=== PATIENT | male | born 1955 | race Caucasian/White ===

== ENCOUNTER 2022-05-15 11:29 | Observation (INO) | payer OTHER ==
[2022-05-15 12:28] LABS: Absolute Lymphocytes (CBC) 2.4 K/uL (0.7-4.9); Hematocrit 45.3 % (39.6-49.0); Lymphocytes % 29.8 % (15.3-44.8); MCV 90.7 fL (80-100); MPV 8.3 fL (7.6-11.3)
[2022-05-15 12:38] LABS: Protime INR 0.99
[2022-05-15 12:45] LABS: SARS-CoV-2 Antigen Rapid Res Negative (Negative)
[2022-05-15 13:11] LABS: Albumin 3.8 g/dL (3.4-5.0); Bilirubin Direct 0.1 mg/dL (0-0.2); Bilirubin Total 0.4 mg/dL (0.2-1.0); Magnesium 2.4 mg/dL (1.8-2.4); Phosphorus 3.3 mg/dL (2.5-4.9); Potassium 4.2 mmol/L (3.5-5.1); Protein, Total 7.7 g/dL (6.4-8.2); Thyroid Stimulating Hormone 2.07 uIU/mL (0.360-3.740)
[2022-05-15 13:34] LABS: UR MICROALBUMIN 1.5 mg/dL (< 1.9)
--- OUTSIDE RECORDS SUMMARY | 2022-05-15 13:54 | XMS REPORT | Continuity of Care Document ---
:1955 [facility] t Address [address] [place] [address] Care Team Providers Name Role Phone Asked, No Pcp Primary Care Physician Unavailable BENEDICT JAVED Attending Clinician Unavailable Benedict Javed MD Attending Clinician Rennyb_Chase Attending Clinician Unavailable Jeremiah Prieto Attending Clinician [phone] Douglas Admitting Clinician Unavailable Payers Payer Name Policy Type Policy Number Effective Date Expiration Date S ource [employer] MEDICARE ADV [id number] 2021 00:00:00 GENERIC MEDICARE [id number] 2021 SUPPLEMENT 00:00:00 [facility] [id number] 2021 CARD AND PC3 00:00:00 [employer] CLAIMS [id number] OFFICE [employer] (MEDICARE [id number] REPLACEMENT/ADVANTA GE - PPO) Problems Condition Condition Condition Status Onset Resolution Last Treating Co mments Source Name Details Category Date Date Treatment Clinician Date Unstable Unstable Disease Active [facility] di angina angina 8-20 st 00:00: Hospita 00 l Urinary Urinary Problem Active [place] tract Tract 2-13 [facility] obstructio Obstructio 00:00: Ur ology n n 00 Benign Benign Problem Active [place] prostatic Prostatic 2-13 [facility] o hyperplasi Hyperplasi 00:00: Ur ology a a 00 Lower Lower Problem Active [place] urinary Urinary 2-13 [facility] tract Tract 00:00: Urology symptoms Symptoms 00 Allergies, Adverse Reactions, Alerts Allergy Allergy Status Severity Reaction(s) Onset Inactive Treating Comm ents Source Name Type Date Date Clinician LEVOFLOX Allergy Active High Hives [facility]: [facility] 00 [facility] Levoflox Propensi Active Itching [facility] di acin ty to 8-20 st adverse 00:00: Hospita reaction 00 l s to drug Levoflox Drug Active Hives, [facility] Allergy Itching [facility] 00:[facility]: [facility] 00 [place] Levaquin Allergy Active [place] to [facility] substan Urology e Social History Social Habit Start Date Stop Date Quantity Comments Source Cigarettes smoked 2022-03-20 2022-03-[address] [facility] current (pack per 00:00:00 00:00:00 [facility] day) - Reported Tobacco use and 2022-03-20 2022-03-[address] [facility] exposure 00:00:00 00:00:00 [facility] Alcohol intake 2022-03-20 2022-03-20 Ex-drinker [facility] 00[facility]finding[facility] History of tobacco 2018-02-15 Current smoker [facility] use 00:00:00 [facility] Sex Assigned At [address] 00:00:00 [facility]:00 [facility] Smoking Status Start Date Stop Date Source Never Smoker [facility] Ur ology Current every day 2022-03-20 00:00:[address] [facility] smoker [facility] Ex-smoker 2018-02-22 00:00:00 2018-02-22 00:00:00 [facility] Ordered Filled Start Stop Current Ordering Indication Dosage Frequency Signature Comments Components Source Medication Medication Date Date Medication? Clinician (SIG) Name Name EMPAGLIFLOZ Yes Take by [facility] ORAL 9-15 [facility]. [facility] 09:26: Medical 36 [facility] tamsulosin 2021- No .4mg Q.5D Take 0.[address] (FLOMAX) 9-15 09-15 mg by [facility] 0.4 mg Cap 09:19: 00:00 mouth 2 Med ical 24 hr 45 :00 (two) Center capsule times daily. pioglitazon Yes 30mg Take [address] [facility] (ACTOS) 9-15 by mouth. [facility]ukes 15 MG 08:52: Medical tablet 25 Center metFORMIN Yes 1000mg Take 1,[address] (GLUCOPHAGE 9-15 mg by [facility]ukes ) 1000 MG 08:52: mouth 2 Medic al tablet 25 (two) Center times daily with breakfast and dinner. aspirin 81 Yes 81mg QD Take [address] MG EC 9-15 by mouth [facility] tablet 08:52: daily. Medical 25 [facility] atorvastati Yes Take by [facility] n calcium 9-15 [facility]. [facility] (ATORVASTAT 08:52: Medica l IN ORAL) 25 [place] tamsulosin 2022- Yes .8mg QD Take [address] (FLOMAX) 9-15 03-14 capsules [facility] 0.4 mg Cap 00:00: 23:59 (0.8 mg Med ical 24 hr 00 :00 total) by Center capsule mouth daily for 180 days. tadalafiL 2021- Yes 5mg QD Take 1 [facility] (CIALIS) 5 -15 12-14 tablet (5 [facility] MG tablet 00:00: 23:59 mg total) Me dical 00 :00 by mouth Center daily for 90 days. sertraline Yes 100mg QD Take 100 Me thodi (ZOLOFT) 25 8-[address] MG tablet 10:22: mouth Hospita 34 daily. l pioglitazon Yes 30mg QD Take 30 mg [facility] e (ACTOS) 8-[address] 15 MG 10:22: daily. Hospita tablet 34 l clopidogrel 2017- Yes 75mg QD Take 75 mg [facility] (PLAVIX) 75 8-[address] mg tablet 10:22: daily. Hospit a 34 l metFORMIN Yes 1000mg Q.5D Take 1,000 [facility] (GLUCOPHAGE 8-[address] ) 1,000 mg 10:22: mouth 2 Hosp jacquie tablet 34 (two) l times a day with meals. glipiZIDE 0 Yes 10mg Q.5D Take 10 mg Me thodi (GLUCOTROL) 8-[address] 10 MG 10:22: (two) Hospita tablet 34 times a l day before meals. finasteride 2018-0 Yes 5mg QD Take 5 mg M ethodi (PROSCAR) 5 02-[address] mg tablet 10:22: daily. Hospit a 34 l lisinopril 2018-0 Yes 5mg QD Take 5 mg Me thodi (PRINIVIL,Z [address] ESTRIL) 5 10:22: daily. Hospit a mg tablet 34 l tamsulosin 2018-0 Yes .4mg QD Take 0.4 Met hodi (FLOMAX) 8-[address] 0.4 mg 10:22: mouth Hospita capsule 34 daily. l atorvastati 2017-0 Yes 80mg QD Take 80 mg Method[facility] n (LIPITOR) 02-[address] 80 MG 10:22: daily. Hospita tablet 34 l amoxicillin amoxicillin No amoxicilli [place] [phone] n 875 [facility] mg-potassiu mg-potassiu mg-potassi Urology m m um clavulanate clavulanate clavulanat 125 mg 125 mg e 125 mg tablet tablet tablet aspirin aspirin No aspirin [place] [facility] atorvastati atorvastati No atorvastat [place] n n in [facility] atorvastati atorvastati No atorvastat [place] n 80 mg n 80 mg in 80 mg [facility] tablet tablet tablet Urology azithromyci azithromyci No azithromyc [place] n 250 mg n 250 mg in 250 mg Me tro tablet tablet tablet Urology benzonatate benzonatate No benzonatat [place] 100 mg 100 mg e 100 mg [facility] capsule capsule capsule Urolog y Calcium 600 Calcium 600 No Calcium [place] 600 [facility] clopidogrel clopidogrel No 1 Q1D clopidogre [place] 75 mg 75 mg l 75 mg [facility] tablet Take tablet Take tablet Urology 1 tablet 1 tablet Take 1 every day every day tablet by oral by oral every day route. route. by oral route. doxycycline doxycycline No doxycyclin [place] hyclate 100 hyclate 100 e hyclate [facility] mg capsule mg capsule 100 mg U rology capsule finasteride finasteride No finasterid [place] e [facility] finasteride finasteride No finasterid [place] 5 mg tablet 5 mg tablet e 5 mg [facility] tablet Urology glipizide glipizide No glipizide [place] [facility] glipizide glipizide No glipizide [place] 10 mg 10 mg 10 mg [facility] tablet tablet tablet Urology Januvia 100 Januvia 100 No Januvia [place] mg tablet mg tablet 100 mg Met ro tablet Urology Jardiance Jardiance No Jardiance [place] 25 mg 25 mg 25 mg [facility] tablet tablet tablet Urology lisinopril lisinopril [facility]ril [facility] lisinopril lisinopril No lisinopril [place] 5 mg tablet 5 mg tablet 5 mg M etro tablet Urology metformin metformin No metformin [place] [facility] metformin metformin No metformin [place] 1,000 mg 1,000 mg 1,000 mg Met ro tablet tablet tablet Urology methylpredn methylpredn No methylpred [place] isolone 4 isolone 4 nisolone 4 [facility] mg tablets mg tablets mg tablets Urology in a dose in a dose in a dose pack pack pack metoprolol metoprolol No metoprolol [place] riggs-hydrochl riggs-hydrochl riggs-hydroch [facility] orothiaz orothiaz lorothiaz Ur ology mupirocin 2 mupirocin 2 No mupirocin [place] % topical % topical 2 % [facility] ointment ointment topical Urol ogy ointment Myrbetriq Myrbetriq No Myrbetriq [place] 50 mg 50 mg 50 mg [facility] tablet,exte tablet,exte tablet,ext Urology nded nded ended release release release Take 1 Take 1 Take 1 tablet tablet tablet every day every day every day by oral by oral by oral route for route for route for 90 days. 90 days. 90 days. Pepcid Pepcid No Pepcid [place] [facility] pioglitazon pioglitazon No pioglitazo [place] e e ne [facility] pioglitazon pioglitazon No pioglitazo [place] e 30 mg e 30 mg ne 30 mg [facility] tablet tablet tablet Urology Reprexain Reprexain [facility] Reprexain [facility] solifenacin solifenacin No solifenaci [place] 10 mg 10 mg n 10 mg [facility] tablet tablet tablet Urology tamsulosin tamsulosin No tamsulosin [place] 0.4 mg 0.4 mg 0.4 mg [facility] capsule capsule capsule Urolog y Trulicity Trulicity No Trulicity [place] 0.75 mg/0.5 0.75 mg/0.5 0.75 M etro mL mL mg/0.5 mL Urology subcutaneou subcutaneou subcutaneo s pen s pen us pen injector injector injector Zoloft Zoloft No Zoloft [facility] Urolog Immunizations Ordered Immunization Filled Immunization Date Status Commen ts Source Name Name influenza, influenza, 2020-05-06 Completed [facility] injectable, injectable, 00:00:00 Urology quadrivalent quadrivalent pneumococcal, pneumococcal, 2018-04-05 Completed [facility] unspecified unspecified 00:00:00 Urology formulation formulation Vital Signs Vital Name Observation Time Observation Value Comments Source WEIGHT 2022-03-20 08:50:00 114.352 kg WEIGHT 2022-03-20 08:50:00 114.352 kg Height 2021-03-07 00:00:00 72 [in_i] [facility] BMI (Body Mass Index) 2021-03-07 00:00:00 36.3 kg/m2 [facility] Body Weight 2021-03-07 00:00:00 268 [lb_av] [facility] Systolic blood 2022-03-20 08:50:00 98 mm[Hg] [facility] Diastolic blood 2022-03-20 08:50:00 55 mm[Hg] [facility] Heart rate 2022-03-20 08:50:00 66 /min [facility] Body temperature 2022-03-20 08:50:00 36.17 [facility] Body weight 2022-03-20 08:50:00 114.352 kg [facility] Procedures Procedure Date / Time Performed Performing Clinician Cristhian e TESTOSTERONE, FREE + 2022-03-20 11:30:[address] [facility] PSA 2022-03-20 11:30:00 Benedict Javed [facility] Colonoscopy with Biopsy [facility] Urology CARDIO- Heart Surgery [facility] tro (Stents) Urology Plan of Care Planned Activity Planned Date Details Comments Source Future Scheduled 2022-05-11 HEPATITIS B VACCINES Met [facility] Test 04:55:41 (1 of 3 - 3-dose series) [code = HEPATITIS B VACCINES (1 of 3 - 3-dose series)] Future Scheduled 2022-05-11 COVID-19 VACCINE (#1) [facility] Test 04:55:41 [code = COVID-19 VACCINE (#1)] Future Scheduled 2022-05-11 COLONOSCOPY SCREENING [facility] Test 04:55:41 [code = COLONOSCOPY SCREENING] Future Scheduled 2022-05-11 SHINGLES VACCINES (1 Met [facility] Test 04:55:41 of 2) [code = SHINGLES VACCINES (1 of 2)] Future Scheduled 2022-05-11 65+ PNEUMOCOCCAL Methodi [facility] Test 04:55:41 VACCINE (1 - PCV) [code = 65+ PNEUMOCOCCAL VACCINE (1 - PCV)] Future Scheduled 2022-05-11 INFLUENZA VACCINE Method [facility] Test 04:55:41 [code = INFLUENZA VACCINE] Future Scheduled 2022-03-[address] [facility] Test 00:00:00 WELLNESS (YEAR 2 or Medical Center FIRST YEAR if no IPPE) [code = MEDICARE ANNUAL WELLNESS (YEAR 2 or FIRST YEAR if no IPPE)] Future Scheduled 2022-03-06 INFLUENZA VACCINE (#1) [facility] Test 00:00:00 [code = INFLUENZA Medical Ce nter VACCINE (#1)] Future Scheduled 2021-07-[address] [facility] Test 00:00:00 (12+) [code = Medical Center DEPRESSION SCREENING (12+)] Future Scheduled 2021-07-06 FALLS RISK SCREENING [facility] Test 00:00:00 [code = FALLS RISK Medical C enter SCREENING] Diagnostic Test 2021-03-07 PSA, serum or plasma [facility] Pending 00:00:00 [code = PSA, serum or Urolog y plasma] Diagnostic Test 2021-03-07 urinalysis, dipstick [facility] Pending 00:00:00 [code = urinalysis, Urology dipstick] Future Scheduled 2021-02-[address] [facility] Test 00:00:00 aneurysm screening Medical C enter (procedure) [code = 516978840] Future Scheduled 2019-04-05 PNEUMOCOCCAL 65+ [facility] Test 00:00:00 (2 - PCV) [code = Medical Ce nter PNEUMOCOCCAL 65+ YRS (2 - PCV)] Future Scheduled 2006-02-24 SHINGLES VACCINES ([address] [facility] Test 00:00:00 of 2) [code = SHINGLES Medic al Center VACCINES (1 of 2)] Future Scheduled 1975-02-24 DTAP/TDAP/TD VACCINES [facility] Test 00:00:00 (1 - Tdap) [code = Medical C enter DTAP/TDAP/TD VACCINES (1 - Tdap)] Future Scheduled 1974-02-24 HEPATITIS C SCREENING [facility] Test 00:00:00 [code = HEPATITIS C Medical Center SCREENING] Future Scheduled 1955 COVID-19 VACCINE (#1) [facility] Test 00:00:00 [code = COVID-[address] VACCINE (#1)] Future Scheduled [address] [facility] Test 00:00:00 (combo) [code = CT Medical C enter Colonography (combo)] Future Scheduled [address] [facility] Test 00:00:00 malignant neoplasm of Medica l Center colon (procedure) [code = 303729845] Future Scheduled [address] [facility] Test 00:00:00 malignant neoplasm of Medica l Center colon (procedure) [code = 592732114] Future Scheduled [address] [facility] Test 00:00:00 malignant neoplasm of Medica l Center colon (procedure) [code = 034550333] Future Scheduled [address] [facility] Test 00:00:00 malignant neoplasm of Medica l Center colon (procedure) [code = 700204451] Future Scheduled 1955 Sigmoidoscopy [code = [facility] Test 00:00:00 Sigmoidoscopy] Medical Karley r Encounters Start End Encounter Admission Attending Care Care Encounter Source Date/Time Date/Time Type Type Clinicians Facility Department ID 2022-04-08 2022-04-08 Outpatient MEGAN JAVED, [facility] [id number] [facility]00 00[facility]00[facility]00 [facility] 2022-03-20 2022-03-20 Outpatient MEGAN JAVED [facility] [id number] 08:36:46 09:31:06 [facility] 2022-03-20 2022-03-20 Office Tegan [facility] [id number] 08:30:00 09:31:06 Visit [facility] 2022-02-21 2022-02-21 Outpatient MEGAN JAVED [facility] [id number] 00:[facility]00 00:00:00 [facility] 2021-03-07 2021-03-07 Outpatient Goldfarb_R [facility] [address] [place] 01:13:00 01:13:00 [id number] [facility] Urology 2021-03-07 2021-03-07 Outpatient Ida [facility] [id number] 00:00:00 00:00:00 Jeremiah [id number] 2021-03-07 2021-03-07 Jeremiah [facility] [place] - [id number] H daisy 00:00:00 00:00:00 Rich Prieto MD: [id number] [facility]rology [facility] [address] [address] , Ph. 2021-03-01 2021-03-01 Outpatient Goldfarb_R [facility] [address] [place] 03:18:00 03:18:00 [id number] [facility] Urology Results Test Description Test Time Test Comments Results Result Comments Source PSA 2022-03-23 20:07:00 Test Item Value Reference Range Interpretation Comme nts Prostate Specific Ag, 4.2 ng/mL 0.0-4.0 H Amanda ECLIA Serum (test code = methodolo gy.According to the 20110222) [place] [employer], Se rum PSA shoulddecrease and remain at undetectable le vels after radicalprostate ctomy. The AUA defines biochem ical recurrence as an initialPS A value 0.2 ng/mL or greate r followed by a subsequent conf irmatoryPSA value 0.2 ng/mL or greater.Values obtained with different assay methods or kits cannot be usedi nterchangeably. Results cannot be interpreted as absolute nancy denceof the presence or abs ence of malignant disea se. ED (test code = ED) Performed at: 01 - [facility] [id number] Director: Iam Zarate MD, Phone: [phone] Lab Interpretation (test Abnormal code = 50877-5) [facility] + [id number] 20:07:00 Test Item Value Reference Range Interpretation Comments Testosterone, Serum 427 ng/dL 264-916 Adult ma le (test code = 2986-8) referen ce interval is based on a population ofhealthy nonobese males (BMI <30) between 19 and 39 years old.Ronel et.al. JCEM 2017,102;1161-1 1 73. PMID: 87596051. Free 3.8 pg/mL 6.6-18.1 L Testosterone(Direct) (test code = 2991-8) ED (test code = ED) Performed at: - [facility] [address] [id number] Director: Iam Zarate MD, Phone: [phone] ed at: - [facility] [id number] Director: Cassi Sarmiento MD, Phone: [phone] Lab Interpretation Abnormal (test code = 70853-6) [facility]
[2022-05-15 14:16] VITALS: BMI 34.2
[2022-05-15] MEDS ORDERED: GLUCAGON 1 MG/VIAL IM PRN (14:58)
[2022-05-15] MEDS ORDERED: LOPERAMIDE HCL 2 MG CAPSULE PO PRN (15:00)
[2022-05-15] MEDS ORDERED: ACETAMINOPHEN 325 MG TABLET PO PRN (15:00)
[2022-05-15] MEDS ORDERED: DIPHENHYDRAMINE 25 MG TAB/CAP PO PRN (15:00)
[2022-05-15] MEDS ORDERED: ONDANSETRON 4 MG/2 ML VIAL IV PRN (15:00)
[2022-05-15] MEDS ORDERED: POLYETHYL GLY 3350 17 GM/DOSE PO PRN (15:00)
[2022-05-15] MEDS ORDERED: NACHLORIDE 0.45% 1,000 ML IV SCH (15:00)
[2022-05-15] MEDS ORDERED: ONDANSETRON 4 MG (ODT) TAB PO PRN (15:00)
[2022-05-15] MEDS ORDERED: VANCOMYCIN 2 GM in NA CHLORIDE 0.9% 500 ML IVPB SCH (15:00)
[2022-05-15] MEDS ORDERED: DEXTROSE 10%-WATER 500 ML IV BAG IV PRN (15:16)
--- NOTE | 2022-05-15 16:01 | RAD REPORT ---
EXAM DESCRIPTION: RAD - Chest Pa And Lat (2 Views) - 05/15/2022 3:48 pm CLINICAL HISTORY: abscess, MRSA COMPARISON: Chest Pa And Lat (2 Views) dated 12/24/2018; CHEST SINGLE VIEW dated 09/29/2015; CHEST SIN GLE VIEW dated 10/23/2013 FINDINGS: Lines: None. Lungs: No evidence of edema or pneumonia. Pleural: No significant pleural effusions or pneumothorax. Cardiac: The heart size is within normal limits. Mediastinum: Within normal limits. Bones: No acute fractures. Other: None IMPRESSION: No acute cardiopulmonary disease.
[2022-05-15] MEDS: INSULIN -REGULAR HUMAN 50 UNIT/0.5 ML ML SQ SCH ×2 (16:30→20:38)
[2022-05-16 05:49] LABS: Absolute Lymphocytes (CBC) 2.5 K/uL (0.7-4.9); Hematocrit 40.7 % (39.6-49.0); Lymphocytes % 34.2 % (15.3-44.8); MCV 90.5 fL (80-100); MPV 8.3 fL (7.6-11.3)
[2022-05-16 05:56] LABS: Magnesium 2.4 mg/dL (1.8-2.4); Potassium 4.4 mmol/L (3.5-5.1)
[2022-05-16] MEDS: INSULIN -REGULAR HUMAN 50 UNIT/0.5 ML ML SQ SCH ×3 (07:30→16:30)
[2022-05-16] MEDS ORDERED: TIZANIDINE 4 MG PO PRN (08:28)
[2022-05-16] MEDS ORDERED: HOME MED 1 EA UNK (Semaglutide [Ozempic] 1 MG/0.75 ML Pen.Injctr) SQ SCH (08:30)
[2022-05-16] MEDS ORDERED: SERTRALINE 100 MG PO SCH (09:00)
[2022-05-16] MEDS ORDERED: FINASTERIDE 5 MG PO SCH (09:00)
[2022-05-16] MEDS ORDERED: INSULIN GLARGINE HUM REC ANLOG 100 UNIT/ML SQ SCH ×2 (09:00→21:00)
[2022-05-16] MEDS ORDERED: VANCOMYCIN 2 GM in NA CHLORIDE 0.9% 500 ML IVPB SCH (09:00)
[2022-05-16] MEDS ORDERED: TAMSULOSIN HCL 0.4 MG PO SCH (09:00)
[2022-05-16] MEDS ORDERED: HOME MED 1 EA UNK (Metformin Hcl [Metformin Hcl] 1,000 MG Tablet) PO SCH (09:00)
[2022-05-16] MEDS ORDERED: FAMOTIDINE 20 MG PO SCH (09:00)
[2022-05-16] MEDS ORDERED: ATORVASTATIN CALCIUM 80 MG PO SCH (09:00)
[2022-05-16] MEDS ORDERED: ASPIRIN 81 MG PO SCH (09:00)
[2022-05-16] MEDS ORDERED: ENOXAPARIN 40 MG/0.4 ML SQ SCH (09:00)
[2022-05-16] MEDS ORDERED: VARENICLINE TARTRATE PO SCH (09:00)
[2022-05-16] MEDS ORDERED: HOME MED 1 EA UNK (Oxybutynin Chloride [Oxybutynin Chloride Er] 10 MG Tab.Er.24) PO SCH (09:00)
[2022-05-16] MEDS ORDERED: NA CHLORIDE 0.9% 1,000 ML ONE (13:24)
--- NOTE | 2022-05-16 14:34 | P.PN ---
Subjective Date of Service: 05/16/22 Chief Complaint: ABSCESS BACK OF UPPER CHEST DR. QUEVEDO IS TAKING HIM FOR SURGERY TODAY. HE COULD GO HOME TODAY OR AM DEPENDING ON DR. QUEVEDO'S SURGICAL EVAL. Physical Examination - Vital Signs Temperature: 96.6 F Blood Pressure: 124/62 Pulse: 63 Respirations: 18 Pulse Ox (%): 96 - Physical Exam General: Mild distress HEENT: Atraumatic, PERRLA, EOMI Neck: Supple, JVD not distended Respiratory: Clear to auscultation bilaterally, Normal air movement Cardiovascular: Regular rate/rhythm, Normal S1 S2 Gastrointestinal: Normal bowel sounds, No tenderness Musculoskeletal: No tenderness Integumentary: No rashes Neurological: Normal speech, Normal tone, Normal affect Lymphatics: No axilla or inguinal lymphadenopathy - Studies Laboratory Data (last 24 hrs) 05/16/22 05:24: Sodium 137, Potassium 4.4, BUN 21 H, Creatinine 1.27, Glucose 125 H, Magnesium 2.4 05/16/22 05:24: WBC 7.40, Hgb 13.6 D, Hct 40.7, Plt Count 139 L Medications List Reviewed: Yes Assessment And Plan - Current Problems (Diagnosis) (1) Abscess Current Visit: Yes Status: Acute Plan: IV VANCOMYCIN BACTRIM FAILED I And D TODAY. DC PLAN PER DR. BAEZ (2) Diabetes Onset Date: 10/01/15 Current Visit: No Status: Acute
[2022-05-16] MEDS ORDERED: propofoL 200 MG/20 ML VIAL IV ONE (14:36)
[2022-05-16] MEDS ORDERED: LIDOCAINE 2% MPF 5 ML VIAL ONE (14:36)
[2022-05-16] MEDS ORDERED: MIDAZOLAM HCL 2 MG/2 ML INJ ONE (14:36)
[2022-05-16] MEDS ORDERED: FENTANYL CITR 100 MCG/2 ML ONE (15:05)
[2022-05-16] MEDS ORDERED: ONDANSETRON 4 MG/2 ML VIAL ONE (15:15)
[2022-05-16] MEDS ORDERED: KETOROLAC 30 MG/ML INJ ONE (15:15)
--- NOTE | 2022-05-16 15:17 | P.BOP ---
Preoperative diagnosis: infected back subQ mass with abscess, celullitis Postoperative diagnosis: same Primary procedure: Excisional biopsy of infected back subQ mass 3x3cm with abscess drainage Estimated blood loss: <10cc Specimen: culture, inflammatory subq mass Findings: seee dicta Anesthesia: General Complications: None Drain(s): Other (wet to dry) Transferred to: Recovery Room Condition: Good
[2022-05-16 15:59] VITALS: O2SAT 99
[2022-05-16 16:38] VITALS: BP 119/70; TEMP 96.7
--- NOTE | 2022-05-16 20:33 | CON ---
Date of Consultation: 05/16/2022 Diagnosis: Back abscess. History Of Present Illness: This is the case of a male, who comes to us with a back abscess. He has been on antibiotics, is not improving, have a necrotic center with cellulitis around the area. He w as admitted to the hospital for IV antibiotics and also for surgical debridement. He does not rememb er exactly what happened. Then, he had seen a lump in that area before, may be just an infected seba ceous cyst with cellulitis and abscess. Review of Systems: Denies any shortness of breath, any chest pain, any fever. See history above. Otherwise 10 points a re unremarkable. Medical History: Abscess, cellulitis. Allergies: LEVAQUIN. Social History: He does not smoke. He does not drink alcohol. Family History: Noncontributory. Medications: Reviewed. Physical Examination: General: The patient is awake and alert. HEENT: Pupils are equal and reactive. Anicteric. Neck: Supple. Chest: Clear. Abdomen: Soft and depressible. Extremities: Good capillary refill. Integumentary: Shows in the right back area, the patient has an area of cellulitis about a 5 x 5 cm region with a center of about 3 x 3 cm black necrotic with fluctuance present. Laboratory Data: Blood work shows WBC count of 8.2 with a hemoglobin of 15.1. Assessment: This is a 67-year-old patient with cellulitis and abscess, infected mass in the upper ba ck. I have fully explained the benefits, alternatives, and risks of excisional biopsy of infected ma ss with drainage of an abscess, subcutaneous, which include, but not limited to infection, bleeding, damage to adjacent structures, anesthesia complication, recurrence, MS and even . He also under stands this may require wound care. He understood. WILD/JAYLEEN Voice ID: [id number] Report ID: [id number]
[2022-05-16] MEDS ORDERED: HOME MED 1 EA UNK (Empagliflozin [Jardiance] 25 MG Tablet) PO SCH (21:00)
[2022-05-16] MEDS ORDERED: GABAPENTIN 300 MG PO SCH (21:00)
--- NOTE | 2022-05-17 01:36 | OP ---
Date of Procedure: 05/16/2022 Surgeon: Kane Limon MD Preoperative Diagnosis: Infected back subcutaneous mass with abscess and cellulitis. Postoperative Diagnosis: Infected back subcutaneous mass with abscess and cellulitis. Procedure: Excisional biopsy of infected back subcutaneous mass 3 x 3 cm with abscess drainage. Specimen: Culture and inflammatory subcutaneous mass. Finding: See dictations. Anesthesia: General plus local. Complications: None. Packing: Wet-to-dry normal saline. Indications: This is the case of a 67-year-old patient who was admitted to the hospital with an absc ess and cellulitis and an infected necrotic ulcer with a mass on the back area. I fully explained th e benefits, alternatives, and risks of excisional biopsy of infected back subcutaneous mass with absc ess drainage, which include, but not limited to infection, bleeding, damage to adjacent structures, a nesthesia complication, nonhealing wound, CA and even . He also understands this may not reliev e any symptoms. He might need more than one surgical intervention. He understood and signed a consen t. Procedure In Detail: The patient was brought to the operating room, placed in supine position, and a nesthesia was done without complication. The area of concern was marked by me and the patient previo usly in the holding room. The patient was placed in a lateral decubitus position with proper protect ion. Local anesthesia was applied after time-out and then a wedge incision was made on the skin to c arry down to deep subcutaneous tissue where we have this inflammatory mass and deep to that is an abs cess. The purulent discharge was cultured. The area was irrigated and hemostasis was obtained and t he area was packed with wet-to-dry dressing. Patient tolerated the procedure well. Patient was sent to recovery in stable condition. WILD/JAYLEEN Voice ID: [id number] Report ID: [id number]
--- NOTE | 2022-05-17 01:48 | DS ---
Date of Discharge: 05/16/2022 Diagnosis: Infected back subcutaneous mass with abscess and cellulitis. Procedure: Excisional biopsy of infected back subcutaneous mass. Disposition: Home. Activity: As tolerated. No heavy lifting. Follow Up: In my office in 1 week. Call for appointment on [phone]. Patient will be discharged obv iously with the approval of Dr. Saul who is the primary doctor in this service. We prescribed pain medication for him. He is going to continue with his antibiotics. WILD/JAYLEEN Voice ID: [id number] Report ID: [id number]
== END 2022-05-16 17:08 | disposition home or self-care (01) ==
LOC: 2ND 13:48
PROVIDERS: ADMIT Internal Medicine; ATTEND Internal Medicine
PROC: 0JB70ZZ Excision of Back Subcutaneous Tissue and Fascia, Open Approach (ICD-10-PCS; principal; 2022-05-16 14:30)
DX: R22.2 Localized swelling, mass and lump, trunk (principal); L02.212 Cutaneous abscess of back [any part, except buttock and flank]; L03.312 Cellulitis of back [any part except buttock and flank]; I96 Gangrene, not elsewhere classified; Z20.822 Contact with and (suspected) exposure to COVID-19
CPT/HCPCS: 87070; 85025 ×2; 80048 ×2; 36415; 83735 ×2; 87205; 84100; 85610; 82947 ×4; 80076; 88304; 85730; 87075; 84443; 87077; 87186; 83036; 82570; 82607; 82306; 82043; 71046; 87811; 11403; J2704; J1815; J2001; J2250; J3010; J3370 ×2; G0378 ×3; J7040 ×2; J7030; J2405; G0379

== ENCOUNTER 2023-05-26 10:23 | Inpatient (IN) | payer OTHER ==
--- OUTSIDE RECORDS SUMMARY | 2023-05-26 10:27 | XMS REPORT | Continuity of Care Document ---
:1955 Author Organization [facility] t Address [address] [place] [address] [place] [id number] Care Team Providers Name Role Phone Asked, No Pcp Primary Care Physician Unavailable BENEDICT JAVED Attending Clinician Unavailable Tegan CHA, Benedict Moore Attending Clinician Rennyb_R Attending Clinician Unavailable Jeremiah Prieto Attending Clinician [phone] Douglas Admitting Clinician Unavailable Payers Payer Name Policy Type Policy Number Effective Date Expiration Date S ource [employer] MEDICARE ADV [id number] 2021 00:00:00 GENERIC MEDICARE [id number] 2021 SUPPLEMENT 00:00:00 [facility] CHOICE [id number] 2021 CARD AND PC3 00:00:00 [employer] CLAIMS [id number] OFFICE [employer] (MEDICARE [id number] REPLACEMENT/ADVANTA GE - PPO) Problems Condition Condition Condition Status Onset Resolution Last Treating Co mments Source Name Details Category Date Date Treatment Clinician Date Unstable Unstable Disease Active [facility] di angina angina 8-20 st 00:00: Hospita 00 l Urinary Urinary Problem Active [place] tract Tract 2-13 [facility] obstructio Obstructio 00:00: Ur ology n n 00 Benign Benign Problem Active [place] prostatic Prostatic 2-13 Metr o hyperplasi Hyperplasi 00:00: Ur ology a a 00 Lower Lower Problem Active [place] urinary Urinary 2-13 [facility] tract Tract 00:00: Urology symptoms Symptoms 00 Allergies, Adverse Reactions, Alerts Allergy Allergy Status Severity Reaction(s) Onset Inactive Treating Comm ents Source Name Type Date Date Clinician Levoflox Propensi Active Itching [facility] di acin ty to 8-20 st adverse 00:00: Hospita reaction 00 l s to drug Levoflox Drug Active [facility] [address] [place] LEVOFLOX Allergy Active High Hives [facility] 8-20 [facility] 00:[facility]: [facility] [place] Levaquin Allergy Active [place] [facility] e Social History Social Habit Start Date Stop Date Quantity Comments Source History of tobacco [facility]okes tobacco [facility] use daily [facility] Sexual orientation [facility] St kes [facility] Tobacco use and 2022-03-20 2022-03-[address] [facility] [facility] kes exposure 00:00:00 00:00:00 [facility] Cigarettes smoked 2022-03-20 2022-03-[address] [facility] current (pack per 00:00:00 00:00:00 Medical Center day) - Reported Alcohol intake 2022-03-20 2022-03-20 Ex-drinker [facility] 00:[facility]00 00:00:00 (finding) [facility] History of Social 2018-05-22 2018-05-[address] function 00:00:00 00:00:00 Hospital Sex Ass[birth year] [facility] [address] Kaylee kes 00:00:00 00:00:00 [facility] Smoking Status Start Date Stop Date Source Never Smoker [facility] Ur ology Current every day 2022-03-20 00:00:[address] [facility] [facility] Medical smoker Center Ex-smoker 2018-02-22 00:00:00 2018-02-22 00:00:00 [facility] Ordered Filled Start Stop Current Ordering Indication Dosage Frequency Signature Comments Components Source Medication Medication Date Date Medication? Clinician (SIG) Name Name EMPAGLIFLOZ Yes Take by [facility] ORAL 9-15 mouth. [facility] 09:26: Medical [address] [place] [address] EMPAGLIFLOZ Yes Take by [facility] ORAL 9-15 [facility]. [facility]ukes 09:26: [address] tamsulosin 2- No .4mg Q.5D Take 0.[address] (FLOMAX) 9-15 09-15 mg by [facility]ukes 0.4 mg Cap 09:19: 00:00 mouth 2 Med ical 24 hr 45 :00 (two) Center capsule times daily. pioglitazon Yes 30mg Take [address] e (ACTOS) 9-15 by mouth. Lukes 15 MG 08:52: Medical tablet [address] [place] metFORMIN Yes 1000mg Take 1,[address] (GLUCOPHAGE 9-15 mg by Lukes ) 1000 MG 08:52: mouth 2 Medic al tablet 25 (two) Center times daily with breakfast and dinner. aspirin 81 Yes 81mg QD Take [address] MG EC 9-15 by mouth [facility]ukes tablet 08:52: daily. [address] atorvastati Yes Take by [facility] n calcium 9-15 mouth. [facility]ukes (ATORVASTAT 08:52: Medica l IN ORAL) [address] [place] [address] pioglitazon Yes 30mg Take [address] [facility] (ACTOS) 9-15 by mouth. Lukes 15 MG 08:52: Medical tablet [address] [place] [address] metFORMIN Yes 1000mg Take 1,[address] (GLUCOPHAGE 9-15 mg by Lukes ) 1000 MG 08:52: mouth 2 Medic al tablet 25 (two) Center times daily with breakfast and dinner. aspirin 81 0 Yes 81mg QD Take [address] MG EC 9-15 by mouth [facility]ukes tablet 08:52: daily. [address] atorvastati Yes Take by [facility] n calcium 9-15 mouth. Lukes (ATORVASTAT 08:52: Medica l IN ORAL) [address] [place] [address] tamsulosin 3- No .8mg QD Take [address] (FLOMAX) 9-15 03-14 capsules Lukes 0.4 mg Cap 00:00: 23:59 (0.8 mg Med ical 24 hr 00 :00 total) by Center capsule mouth daily for 180 days. tamsulosin 2022- No .8mg QD Take [address] (FLOMAX) 9-15 03-14 capsules [facility]ukes 0.4 mg Cap 00:00: 23:59 (0.8 mg Med ical 24 hr 00 :00 total) by Center capsule mouth daily for 180 days. tadalafiL 2021- No 5mg QD Take 1 [facility] (CIALIS) 5 -15 12-14 tablet (5 [facility] MG tablet 00:00: 23:59 mg total) Me dical 00 :00 by mouth Center daily for 90 days. tadalafiL 2021- No 5mg QD Take 1 [facility] (CIALIS) 5 15 12-14 tablet (5 [facility] MG tablet 00:00: 23:59 mg total) Me dical 00 :00 by mouth Center daily for 90 days. sertraline 2017-0 Yes 100mg QD Take 100 Me thodi (ZOLOFT) 25 8-[address] MG tablet 10:22: mouth Hospita 34 daily. l pioglitazon 2017-0 Yes 30mg QD Take 30 mg Methodi e (ACTOS) 8-[address] 15 MG 10:22: daily. Hospita tablet 34 l clopidogrel 2018-0 Yes 75mg QD Take 75 mg [facility]i (PLAVIX) 75 8-[address] mg tablet 10:22: daily. Hospit a 34 l metFORMIN 2018-0 Yes 1000mg Q.5D Take 1,000 [facility]i (GLUCOPHAGE 8-[address] ) 1,000 mg 10:22: mouth 2 Hosp jacquie tablet 34 (two) l times a day with meals. glipiZIDE 2018-0 Yes 10mg Q.5D Take 10 mg Me thodi (GLUCOTROL) 8-[address] 10 MG 10:22: (two) Hospita tablet 34 times a l day before meals. finasteride 2018-0 Yes 5mg QD Take 5 mg M ethodi (PROSCAR) 5 8-[address] mg tablet 10:22: daily. Hospit a 34 l lisinopril 2018-0 Yes 5mg QD Take 5 mg Me thodi (PRINIVIL,Z 8-[address] ESTRIL) 5 10:22: daily. Hospit a mg tablet 34 l tamsulosin 2018-0 Yes .4mg QD Take 0.4 Met hodi (FLOMAX) 8-[address] 0.4 mg 10:22: mouth Hospita capsule 34 daily. l atorvastati 2018-0 Yes 80mg QD Take 80 mg Methodi n (LIPITOR) 8-[address] 80 MG 10:22: daily. Hospita tablet 34 l clopidogrel 2018-0 Yes 75mg QD Take 75 mg [facility]i (PLAVIX) 75 8-[address] mg tablet 10:22: daily. Hospit a 34 l metFORMIN 2018-0 Yes 1000mg Q.5D Take 1,000 Methodi (GLUCOPHAGE 8-[address] ) 1,000 mg 10:22: mouth 2 Hosp jacquie tablet 34 (two) l times a day with meals. glipiZIDE 2018-0 Yes 10mg Q.5D Take 10 mg Me thodi (GLUCOTROL) 8-[address] 10 MG 10:22: (two) Hospita tablet 34 times a l day before meals. finasteride 2018-0 Yes 5mg QD Take 5 mg M ethodi (PROSCAR) 5 8-[address] mg tablet 10:22: daily. Hospit a 34 l lisinopril 2018-0 Yes 5mg QD Take 5 mg Me thodi (PRINIVIL,Z 8- by mouth st ESTRIL) 5 10:22: daily. Hospit a mg tablet 34 l tamsulosin 2018-0 Yes .4mg QD Take 0.4 Met hodi (FLOMAX) 8-[address] 0.4 mg 10:22: mouth Hospita capsule 34 daily. l atorvastati 2018-0 Yes 80mg QD Take 80 mg Methodi n (LIPITOR) 8-[address] 80 MG 10:22: daily. Hospita tablet 34 l sertraline 2018-0 Yes 100mg QD Take 100 Me thodi (ZOLOFT) 25 8-[address] MG tablet 10:22: mouth Hospita 34 daily. l pioglitazon 2018-0 Yes 30mg QD Take 30 mg Methodi e (ACTOS) 8-[address] 15 MG 10:22: daily. Hospita tablet 34 l amoxicillin amoxicillin No amoxicilli [place] [phone] [facility] mg-potassiu mg-potassiu mg-potassi Urology m m um clavulanate clavulanate clavulanat 125 mg 125 mg e 125 mg tablet tablet tablet aspirin aspirin No aspirin [place] [facility] atorvastati atorvastati No atorvastat [place] n n in [facility] atorvastati atorvastati No atorvastat [place] n 80 mg n 80 mg in 80 mg [facility] tablet tablet tablet Urology azithromyci azithromyci No azithromyc [place] n 250 mg n 250 mg in 250 mg Me tro tablet tablet tablet Urology benzonatate benzonatate No benzonatat [place] 100 mg 100 mg e 100 mg [facility] capsule capsule capsule Urolog y Calcium 600 Calcium 600 No Calcium [place] 600 [facility] clopidogrel clopidogrel No 1 Q1D clopidogre [place] 75 mg 75 mg l 75 mg [facility] tablet Take tablet Take tablet Urology 1 tablet 1 tablet Take 1 every day every day tablet by oral by oral every day route. route. by oral route. doxycycline doxycycline No doxycyclin [place] hyclate 100 hyclate 100 e hyclate [facility] mg capsule mg capsule 100 mg U rology capsule finasteride finasteride No finasterid [place] e [facility] finasteride finasteride No finasterid [place] 5 mg tablet 5 mg tablet e 5 mg [facility] tablet Urology glipizide [facility]ipizide [facility]ide [facility] glipizide glipizide No glipizide [place] 10 mg 10 mg 10 mg [facility] tablet tablet tablet Urology Januvia 100 Januvia 100 No Januvia [place] mg tablet mg tablet 100 mg Met ro tablet Urology Jardiance Jardiance No Jardiance [place] 25 mg 25 mg 25 mg [facility] tablet tablet tablet Urology lisinopril lisinopril No lisinopril [facility] lisinopril lisinopril No lisinopril [place] 5 mg tablet 5 mg tablet 5 mg M etro tablet Urology metformin metformin No metformin [facility] metformin metformin No metformin [place] 1,000 mg 1,000 mg 1,000 mg Met ro tablet tablet tablet Urology methylpredn methylpredn No methylpred [place] isolone 4 isolone 4 nisolone 4 [facility] mg tablets mg tablets mg tablets Urology in a dose in a dose in a dose pack pack pack metoprolol metoprolol No metoprolol [place] riggs-hydrochl riggs-hydrochl riggs-hydroch [facility] orothiaz orothiaz lorothiaz Ur ology mupirocin 2 mupirocin 2 No mupirocin [place] % topical % topical 2 % [facility] ointment ointment topical Urol ogy ointment Myrbetriq Myrbetriq No Myrbetriq [place] 50 mg 50 mg 50 mg [facility] tablet,exte tablet,exte tablet,ext Urology nded nded ended release release release Take 1 Take 1 Take 1 tablet tablet tablet every day every day every day by oral by oral by oral route for route for route for 90 days. 90 days. 90 days. Pepcid Pepcid No Pepcid [facility] pioglitazon pioglitazon No pioglitazo [place] e e ne [facility] pioglitazon pioglitazon No pioglitazo [place] e 30 mg e 30 mg ne 30 mg [facility] tablet tablet tablet Urology Reprexain Reprexain No Reprexain [facility] U[facility] solifenacin solifenacin No solifenaci [place] 10 mg 10 mg n 10 mg [facility] tablet tablet tablet Urology tamsulosin tamsulosin No tamsulosin [place] 0.4 mg 0.4 mg 0.4 mg [facility] capsule capsule capsule Urolog y Trulicity Trulicity No Trulicity [place] 0.75 mg/0.5 0.75 mg/0.5 0.75 M etro mL mL mg/0.5 mL Urology subcutaneou subcutaneou subcutaneo s pen s pen us pen injector injector injector Zoloft Zoloft No Zoloft [facility] Vital Signs Vital Name Observation Time Observation Value Comments Source WEIGHT 2022-03-20 08:50:00 114.352 kg Height 2021-03-07 00:00:00 72 [in_i] [facility] BMI (Body Mass Index) 2021-03-07 00:00:00 36.3 kg/m2 [facility] Body Weight 2021-03-07 00:00:00 268 [lb_av] [facility] Systolic blood 2022-03-20 08:50:00 98 mm[Hg] [facility] Diastolic blood 2022-03-20 08:50:00 55 mm[Hg] [facility] Heart rate 2022-03-20 08:50:00 66 /min [facility] Body temperature 2022-03-20 08:50:00 36.17 Aziza [facility] Body weight 2022-03-20 08:50:00 114.352 kg [facility] Procedures Procedure Date / Time Performed Performing Clinician Sourc e TESTOSTERONE, FREE + 2022-03-20 11:30:00 Benedict Javed [facility] TOTAL [facility] PSA 2022-03-20 11:30:00 Benedict Javed [facility] Colonoscopy with Biopsy [facility] CARDIO- Heart Surgery [facility] tro (Stents) Urology Plan of Care Planned Activity Planned Date Details Comments Source Future Scheduled 2023-05-01 Screening for [facility] Test 19:42:19 malignant neoplasm of colon (procedure) [code = 269434950] Future Scheduled 2023-05-01 Screening for [facility] Test 19:42:19 malignant neoplasm of colon (procedure) [code = 532713433] Future Scheduled 2023-05-01 Screening for [facility] Test 19:42:19 malignant neoplasm of colon (procedure) [code = 831138279] Future Scheduled 2023-05-01 COVID[facility]19 [facility]:19 [code = COVID-19 VACCINE (#1)] Future Scheduled 2023-05-01 Screening for [facility] Test 19:42:19 malignant neoplasm of colon (procedure) [code = 182601810] Future Scheduled 2023-05-01 Screening for [facility] Test 19:42:19 malignant neoplasm of colon (procedure) [code = 339519472] Future Scheduled 2023-05-01 SHINGLES VACCINES (1 [facility] Test 19:42:19 of 2) [code = SHINGLES VACCINES (1 of 2)] Future Scheduled 2023-05-01 65+ [facility]OCCAL [facility] Test 19:42:19 VACCINE (1 - PCV) [code = 65+ PNEUMOCOCCAL VACCINE (1 - PCV)] Future Scheduled 2023-05-01 [facility]FLUENZA [facility]ACCINE (#[facility] Test 19:42:19 [code = INFLUENZA VACCINE (#1)] Future Scheduled 2023-03-[address] [facility] Test 00:00:00 [facility] Medical Cente r Screening (12+) [code = Tobacco Cessation Counseling and Screening (12+)] Future Scheduled 2023-03-06 Influenza Vaccine (#1) [facility] Test 00:00:00 [code = Influenza Medical Ce nter Vaccine (#1)] Future Scheduled 2022-07-[address] [facility] Test 00:00:00 (12+) [code = Medical Center DEPRESSION SCREENING (12+)] Future Scheduled 2022-07-06 FALLS RISK SCREENING [facility] Test 00:00:00 [code = FALLS RISK Medical C enter SCREENING] Future Scheduled 2022-05-11 HEPATITIS B VACCINES Met [facility] Test 04:55:41 (1 of 3 - 3-dose series) [code = HEPATITIS B VACCINES (1 of 3 - 3-dose series)] Future Scheduled 2022-05-11 COVID-19 VACCINE (#1) [facility] Test 04:55:41 [code = COVID-19 VACCINE (#1)] Future Scheduled 2022-05-11 COLONOSCOPY SCREENING [facility] Test 04:55:41 [code = COLONOSCOPY SCREENING] Future Scheduled 2022-05-11 SHINGLES VACCINES (1 Met [facility] Test 04:55:41 of 2) [code = SHINGLES VACCINES (1 of 2)] Future Scheduled 2022-05-11 65+ P[facility]UMOCOCCAL [facility] Test 04:55:41 VACCINE (1 - PCV) [code = 65+ PNEUMOCOCCAL VACCINE (1 - PCV)] Future Scheduled 2022-05-11 INFLUENZA [facility]ACCINE [facility] Test 04:55:41 [code = INFLUENZA VACCINE] Future Scheduled 2022-03-[address] [facility] Test 00:00:00 WELLNESS (YEAR 2 or Medical Center FIRST YEAR if no IPPE) [code = MEDICARE ANNUAL WELLNESS (YEAR 2 or FIRST YEAR if no IPPE)] Future Scheduled 2022-03-[address] [...] screening Medical C enter (procedure) [code = 354015614] Future Scheduled 2019-04-05 PNEUMOCOCCAL 65+ [facility] Test 00:00:00 (2 - PCV) [code = Medical Ce nter PNEUMOCOCCAL 65+ YRS (2 - PCV)] Future Scheduled 2019-04-05 PNEUMOCOCCAL 65+ YRS [facility] Test 00:00:00 (2 - PCV) [code = Medical Ce nter PNEUMOCOCCAL 65+ YRS (2 - PCV)] Future Scheduled 2006-02-24 SHINGLES VACCINES ([address] [facility] Test 00:00:00 of 2) [code = SHINGLES Medic al Center VACCINES (1 of 2)] Future Scheduled 2006-02-24 SHINGLES VACCINES ([address] [facility] Test 00:00:00 of 2) [code = SHINGLES Medic al Center VACCINES (1 of 2)] Future Scheduled 1975-02-24 DTAP/TDAP/TD VACCINES [facility] Test 00:00:00 (1 - Tdap) [code = Medical C enter DTAP/TDAP/TD VACCINES (1 - Tdap)] Future Scheduled 1975-02-24 DTAP/TDAP/TD VACCINES [facility] Test 00:00:00 (1 - Tdap) [code = Medical C enter DTAP/TDAP/TD VACCINES (1 - Tdap)] Future Scheduled 1974-02-24 HEPATITIS C SCREENING [facility] Test 00:00:00 [code = HEPATITIS C Medical Center SCREENING] Future Scheduled 1974-02-24 HEPATITIS C SCREENING [facility] Test 00:00:00 [code = HEPATITIS C Medical Center SCREENING] Future Scheduled 1956 COVID-19 VACCINE (#1) [facility] Test 00:00:00 [code = COVID-[address] VACCINE (#1)] Future Scheduled 1955 COVID-19 VACCINE (#1) [facility] Test 00:00:00 [code = COVID-[address] VACCINE (#1)] Future Scheduled [address] [facility] Test 00:00:00 (combo) [code = CT Medical C enter Colonography (combo)] Future Scheduled [address] [facility] Test 00:00:00 malignant neoplasm of Medica l Center colon (procedure) [code = 009331364] Future Scheduled [address] [facility] Test 00:00:00 malignant neoplasm of Medica l Center colon (procedure) [code = 701212570] Future Scheduled [address] [facility] Test 00:00:00 malignant neoplasm of Medica l Center colon (procedure) [code = 206565037] Future Scheduled [address] [facility] Test 00:00:00 malignant neoplasm of Medica l Center colon (procedure) [code = 261053004] Future Scheduled 1955 Sigmoidoscopy [code = [facility] Test 00:[facility] Sigmoidoscopy] Medical Cente r Future Scheduled [address] [facility] Test 00:00:00 (combo) [code = CT Medical C enter Colonography (combo)] Future Scheduled [address] [facility] Test 00:00:00 malignant neoplasm of Medica l Center colon (procedure) [code = 976761178] Future Scheduled [address] [facility] Test 00:00:00 malignant neoplasm of Medica l Center colon (procedure) [code = 449057377] Future Scheduled [address] [facility] Test 00:00:00 malignant neoplasm of Medica l Center colon (procedure) [code = 378118525] Future Scheduled 1955 Screening for [facility] Test 00:00:00 malignant neoplasm of Medica [facility] colon (procedure) [code = 423968810] Future Scheduled 1955 Sigmoidoscopy [code = [facility] 00:[facility]:00 Sigmoidoscopy] Medical Cente r Encounters Start End Encounter Admission Attending Care Care Encounter Source Date/Time Date/Time Type Type Clinicians Facility Department ID 2022-04-08 2022-04-08 [facility] [id number] 00:[facility]00 00:00[facility]00 [facility] 2022-03-20 2022-03-20 [facility] [id number] 08:30:00 09:31:06 Visit [facility] 2022-02-21 2022-02-21 [facility] [id number] 00:[facility]00 00:00:00 [facility] 2021-03-07 2021-03-07 Outpatient Goldfarb_R [facility] [address] [place] 01:13:00 01:13:00 [id number] [facility] 2021-03-07 2021-03-07 Outpatient Ida [facility] [id number] 00:00:00 00:00:00 Jeremiah [id number] 2021-03-07 2021-03-07 [facility] [place] - [id number] Enmanuel villa 00:00:00 00:00:00 Rich Prieto MD: [id number] [facility] [place] [facility] - [id number], [place] [address] , Ph. 2021-03-01 2021-03-01 Outpatient Goldfarb_R U [facility] [address] [place] 03:18:00 03:18:00 [id number] [facility] Results Test Description Test Time Test Comments Results Result Comments Source PSA 2022-03-23 20:07:00 Test Item Value Reference Range Interpretation Comme nts Prostate Specific Ag, 4.2 ng/mL 0.0-4.0 H Amanda ECLIA Serum (test code = methodolo gy.According to the 20110222) [place] [employer], Se rum PSA shoulddecrease [...] (test code = ED) Performed at: - [facility] [id number] Director: Iam Zarate MD, Phone: [phone] Lab Interpretation (test Abnormal code = 62272-1) [facility] [id number] 20:07:00 Test Item Value Reference Range Interpretation Comments Testosterone, Serum 427 ng/dL [id number] Adult ma le (test code = 2986-8) referen ce interval is based on a population ofhealthy nonobese males (BMI <30) between 19 and 39 years old.Ronel et.al. JCEM 2017,102;1161-1 1 73. PMID: 91507074. Free 3.8 pg/mL 6.6-18.1 L Testosterone(Direct) (test code = 2991-8) ED (test code = ED) Performed at: - [facility] [id number] Director: Iam Zarate MD, Phone: [phone] ed at: - [facility] [id number] Director: Cassi Sarmiento MD, Phone: [phone] Lab Interpretation Abnormal (test code = 26112-4) [facility]
[2023-05-26] MEDS ORDERED: ONDANSETRON 4 MG/2 ML VIAL ONE (10:56)
[2023-05-26] MEDS ORDERED: MORPHINE 4 MG/ML SYR ONE (10:56)
[2023-05-26 11:04] LABS: Absolute Lymphocytes (CBC) 1.4 K/uL (0.7-4.9); Hematocrit 43.4 % (39.6-49.0); Lymphocytes % 17.9 % (15.3-44.8); MCV 88.7 fL (80-100); MPV 8.7 fL (7.6-11.3); Platelets 124 thou/uL (152-406); RBC Red Blood Cell Count 4.89 M/uL (4.33-5.43)
[2023-05-26 11:20] LABS: Potassium 3.9 mEq/L (3.5-5.1); Troponin High Sensitivity 23.5 pg/mL (<58.9)
--- NOTE | 2023-05-26 11:33 | RAD REPORT ---
EXAM DESCRIPTION: RAD - Chest Single View - 05/26/2023 11:19 am CLINICAL HISTORY: CHEST PAIN Chest pain. COMPARISON: Chest Pa And Lat (2 Views) dated 05/15/2022; Chest Pa And Lat (2 Views) dated 12/24/2018; CHEST SINGLE VIEW dated 09/29/2015; CHEST SINGLE VIEW dated 10/23/2013 FINDINGS: Portable technique limits examination quality. The lungs are grossly clear. The heart is normal in size. No displaced fractures. IMPRESSION: No acute intrathoracic process suspected.
--- NOTE | 2023-05-26 14:01 | ER ---
Nurse's Notes [facility] Name: Mikey Seo Age: 68 yrs Sex: Male : 1955 Arrival Date: 05/26/2023 Time: 10:23 Bed 17 Private MD: Diagnosis: Subsequent non-ST elevation (NSTEMI) myocardial infarction Presentation: 05/26 10:28 Chief complaint: Patient states: Chest pain since this morning, at about 0730. Denies nj1 nausea, cough, shortness of breath. Took 4 baby aspirins. Pain fluctuates in severity. 10:28 Coronavirus screen: Vaccine status: Patient reports receiving the 2nd dose of the covid nj1 vaccine. Ebola Screen: Patient denies travel to an Ebola-affected area in the 21 days before illness onset. Initial Sepsis Screen: Does the patient meet any 2 criteria? No. Patient's initial sepsis screen is negative. Does the patient have a suspected source of infection? No. Patient's initial sepsis screen is negative. Risk Assessment: Do you want to hurt yourself or someone else? Patient reports no desire to harm self or others. Onset of symptoms was May 26, 2023 at 07:30. 10:28 Method Of Arrival: Ambulatory banner 10:28 Acuity: EDUIN 3 nj1 Historical: - Allergies: 10:36 Levaquin; nj1 - Home Meds: 10:42 Lantus Sub-Q 2 times per day [Active]; atorvastatin oral [Active]; Oxybutynin Chloride aa5 Oral [Active]; sertraline oral [Active]; finasteride oral [Active]; varenicline oral 2 times per day [Active]; calcium BID [Active]; tamsulosin 0.4 mg oral capsule twice a day [Active]; Metformin Oral 2 times per day [Active]; aspirin 81 mg Oral tablet,chewable once [Active]; Pepcid Oral [Active]; empagliflozin oral bedtime [Active]; gabapentin oral at bedtime [Active]; - PMHx: 10:36 Atrial Fib; High Cholesterol; Hypertension; BPH (Hypertension); nj1 10:42 Diabetes mellitus; aa5 - PSHx: 10:36 Coronary Angioplasty; nj1 - Immunization history:: Client reports receiving the 2nd dose of the Covid vaccine. - Social history:: Smoking status: Patient/guardian denies using tobacco, Stopped _ months ago 6. Screenin:30 [facility] ED Fall Risk Assessment (Adult) History of falling in the last 3 months, rs5 including since admission No falls in past 3 months (0 pts) Confusion or Disorientation No (0 pts) Intoxicated or Sedated No (0 pts) Impaired Gait No (0 pts) Mobility Assist Device Used No (0 pt) Altered Elimination No (0 pt) Score/Fall Risk Level 0 - 2 = Low Risk Oriented to surroundings, Maintained a safe environment. Abuse screen: Denies threats or abuse. Nutritional screening: No deficits noted. Tuberculosis screening: No symptoms or risk factors identified. Assessment: 10:30 General: Appears in no apparent distress. uncomfortable, Behavior is calm, cooperative. rs5 Pain: Complains of pain in chest Pain does not radiate. Pain currently is 7 out of 10 on a pain scale. Quality of pain is described as aching, pressure, Pain began 3 hours ago. Is continuous. Neuro: Level of Consciousness is awake, alert, obeys commands, Oriented to person, place, time, situation. Cardiovascular: Heart tones S1 S2 present Rhythm is regular. Respiratory: Airway is patent Respiratory effort is even, unlabored, Respiratory pattern is regular, symmetrical, Breath sounds are clear bilaterally. GI: Abdomen is round non-distended, Bowel sounds present X 4 quads. Abd is soft and non tender X 4 quads. Patient currently denies nausea, vomiting. : No signs and/or symptoms were reported regarding the genitourinary system. EENT: No signs and/or symptoms were reported regarding the EENT system. Derm: Skin is intact, Skin is pink, warm \T\ dry. Musculoskeletal: Range of motion: intact in all extremities. 11:10 Reassessment: Patient denies pain at this time. Patient states feeling better. Patient rs5 states symptoms have improved. 11:10 Cardiovascular: Rhythm is regular. Respiratory: Respiratory effort is even, unlabored, rs5 Respiratory pattern is regular, symmetrical. 12:02 Reassessment: Patient and/or family updated on plan of care and expected duration. Pain rs5 level reassessed. Patient is alert, oriented x 3, equal unlabored respirations, skin warm/dry/pink. provider at bedside. 12:45 Reassessment: To bedside for blood draw. aa5 12:45 Reassessment: Patient and/or family updated on plan of care and expected duration. Pain aa5 level reassessed. Patient is alert, oriented x 3, equal unlabored respirations, skin warm/dry/pink. Cardiovascular: Rhythm is regular. Cardiovascular: Denies chest pain. Respiratory: Respiratory effort is even, unlabored, Respiratory pattern is regular, symmetrical. 13:05 Reassessment: Patient is alert, oriented x 3, equal unlabored respirations, skin aa5 warm/dry/pink. Awaiting repeat troponin results. . 14:00 Reassessment: Provider at bedside . aa5 15:56 Reassessment: To bedside for med adm. rs5 16:45 Reassessment: Patient and/or family updated on plan of care and expected duration. Pain rs5 level reassessed. Patient is alert, oriented x 3, equal unlabored respirations, skin warm/dry/pink. Patient denies pain at this time. Cardiovascular: Denies chest pain, Rhythm is. Respiratory: Airway is patent Respiratory effort is even, unlabored, Respiratory pattern is regular, symmetrical. 16:46 Reassessment: Pt has been hospitalized, see [facility] for continuation of pt care. rs5 17:23 Reassessment: Attempted to call report to admitting nurse, nurse states to call back. . aa5 17:35 Reassessment: Failed attempt to call report, no answer. rs5 17:45 Reassessment: 2 failed attempts to call report, . rs5 17:59 Reassessment: Attempted to call report to admitting nurse, nurse not available, spoke aa5 to house admin, Annamaria Astorga RN and she states to call back to give report in about 20-30 minutes. Pt aware of wait time. . 18:30 Reassessment: Patient and/or family updated on plan of care and expected duration. Pain rs5 level reassessed. Patient is alert, oriented x 3, equal unlabored respirations, skin warm/dry/pink. 18:30 Pain: Denies pain. Cardiovascular: Rhythm is regular. Respiratory: Respiratory effort rs5 is even, unlabored, Respiratory pattern is regular, symmetrical. 19:45 Reassessment: Report attempted. Left on hold by community health education coordinator for 5 min without answer. nw1 20:00 Reassessment: Report attempted, Called and no answer. nw1 Vital Signs: 10:28 BP 150 / 68; Pulse 77; Resp 17; Temp 97.3(TE); Pulse Ox 95% on R/A; Weight 117.93 kg; nj1 Height 6 ft. 0 in. ; Pain 6/10; 10:52 BP 137 / 69; Pulse 75; Resp 16; Temp 97.4(O); Pulse Ox 99% ; rs5 12:04 BP 127 / 71; Pulse 77; Resp 17; Pulse Ox 99% on R/A; rs5 13:05 BP 138 / 57; Pulse 78; Resp 16 S; Pulse Ox 96% on R/A; aa5 14:11 BP 128 / 67; Pulse 65; Resp 17; Pulse Ox 99% on R/A; aa5 15:30 BP 136 / 69; Pulse 62; Resp 17; Pulse Ox 99% on R/A; rs5 16:45 BP 132 / 66; Pulse 63; Resp 18; Pulse Ox 99% on R/A; rs5 17:50 BP 131 / 70; Pulse 63; Resp 17; Pulse Ox 99% on R/A; rs5 18:45 BP 120 / 68; Pulse 67; Resp 18; Pulse Ox 99% on R/A; rs5 10:28 Body Mass Index 35.26 (117.93 kg, 182.88 cm) nj1 10:28 Pain Scale: Adult nj1 ED Course: 10:26 Patient arrived in ED. mg5 10:28 [facility] jh7 10:28 Jonathan Dawson MD is Attending Physician. jh7 10:30 Patient has correct armband on for positive identification. Placed in gown. Bed in low rs5 position. Call light in reach. Side rails up X2. Client placed on continuous cardiac and pulse oximetry monitoring. NIBP monitoring applied. monitoring tech on. Pulse ox on. NIBP on. 10:30 Inserted saline lock: 20 gauge in right forearm, using aseptic technique. Blood rs5 collected. 10:30 Patient maintains SpO2 saturation greater than 95% on room air. rs5 10:36 Triage completed. nj1 10:37 Arm band placed on right wrist. nj1 10:41 Jasbir Mckeon, DANO is Primary Nurse. rs5 11:21 XRAY Chest (1 view) In Process Unspecified. EDMS 14:00 Marshall Shafer MD is Hospitalizing Provider. jh7 15:49 Ptt, Activated Sent. rs5 15:50 No provider procedures requiring assistance completed. Inserted saline lock: 20 gauge rs5 in left hand, using aseptic technique. 20:23 Patient admitted, IV remains in place. nw1 20:24 Provided Education on: POC. nw1 21:02 Primary Nurse role handed off by Jasbir Mckeon RN as6 Administered Medications: 10:49 Drug: morphine IVP or IV 4 mg IVP once over 4 mins Route: IVP; Infused Over: 4 mins; rs5 Site: right forearm; 11:10 Follow up: Response: No adverse reaction; Pain is decreased rs5 10:49 Drug: Ondansetron IVP 4 mg IVP once; over 2 minutes Route: IVP; Site: right forearm; rs5 11:10 Follow up: Response: No adverse reaction; Pain is decreased rs5 15:55 Drug: Heparin ([place]-Bolus No thrombolytic) - HEParin IVP 60 units/kg IVP once; Max 5000 rs5 units {Co-Signature: delia (Abbey Walls RN).} Route: IVP; Site: left wrist; 16:10 Follow up: Response: No adverse reaction rs5 15:56 Drug: Heparin ([place] Drip) 12 units/kg/[place] - ([place] [address] units, D5W IV 500 ml) IV at rs5 calculated rate Per protocol; Max initial rate 1000 units/hr {Co-Signature: delia (Abbey Walls RN).} Route: IV; Rate: calculated rate; Site: left wrist; 16:10 Follow up: Response: No adverse reaction rs5 Medication: 12:04 VIS not applicable for this client. rs5 Point of Care Testing: Blood Glucose: 19:00 Blood Glucose: 135 mg/dL; rs5 Ranges: Outcome: 14:00 Decision to Hospitalize by Provider. jh7 20:23 Admitted to Tele accompanied by tech, room 232, Report called to DANO Tirado nw1 20:23 Condition: stable 20:23 Instructed on the need for admit, 21:10 Patient left the ED. nw1 Signatures: Dispatcher [employer] EDMS Abbey Walls RN RN aa5 Slawson, Ashby, RN RN as6 Teagan Oden FNP VULCANIZER OPERATOR 7 Jasbir Mckeon RN RN rs5 Liz Santos RN RN nj1 Mary De 5 Lesly Paredes, DANO RN nw1 Abbey Walls RN aa5 Corrections: (The following items were deleted from the chart) 10:57 10:36 PMHx: Diabetes - NIDDM; nj1 aa5 18:02 17:59 Reassessment: Attempted to call report to admitting nurse, nurse not available, aa5 spoke to house admin, Annamaria Astorga RN and she states to call back to give report in about 20-30 minutes. . aa5 18:56 16:47 PTT, ACTIVATED+[email or web address].BRZ drawn and sent. rs5 rs5
--- NOTE | 2023-05-26 14:01 | EDPHYS ---
Physician Documentation [facility] Name: Mikey Seo Age: 68 yrs Sex: Male : 1955 Arrival Date: 05/26/2023 Time: 10:23 Bed 17 Private MD: ED Physician Jonathan Dawson HPI: 05/26 10:30 This 68 yrs old Male presents to ER via Ambulatory with complaints of Chest Pain. jh7 10:30 Onset: The symptoms/episode began/occurred this morning. 68-year-old male complains of jh7 chest pain when he woke up this morning. He describes the pain is over his sternum and stabbing. Reports that Dr. Saul is his PCP. Took 324 of aspirin when he woke up but states that it has not relieved his pain. History of NSTEMI.. Historical: - Allergies: 10:36 Levaquin; nj1 - Home Meds: 10:42 Lantus Sub-Q 2 times per day [Active]; atorvastatin oral [Active]; Oxybutynin Chloride aa5 Oral [Active]; sertraline oral [Active]; finasteride oral [Active]; varenicline oral 2 times per day [Active]; calcium BID [Active]; tamsulosin 0.4 mg oral capsule twice a day [Active]; Metformin Oral 2 times per day [Active]; aspirin 81 mg Oral tablet,chewable once [Active]; Pepcid Oral [Active]; empagliflozin oral bedtime [Active]; gabapentin oral at bedtime [Active]; - PMHx: 10:36 Atrial Fib; High Cholesterol; Hypertension; BPH (Hypertension); nj1 10:42 Diabetes mellitus; aa5 - PSHx: 10:36 Coronary Angioplasty; nj1 - Immunization history:: Client reports receiving the 2nd dose of the Covid vaccine. - Social history:: Smoking status: Patient/guardian denies using tobacco, Stopped _ months ago 6. ROS: 10:30 Constitutional: Negative for fever, chills, and weight loss, Eyes: Negative for injury, jh7 pain, redness, and discharge, Neck: Negative for injury, pain, and swelling, Respiratory: Negative for shortness of breath, cough, wheezing, and pleuritic chest pain, Abdomen/GI: Negative for abdominal pain, nausea, vomiting, diarrhea, and constipation, Back: Negative for injury and pain, MS/Extremity: Negative for injury and deformity, Skin: Negative for injury, rash, and discoloration, Neuro: Negative for headache, weakness, numbness, tingling, and seizure, 10:30 Cardiovascular: Positive for chest pain, Negative for orthopnea, palpitations, 10:30 All other systems are negative, Exam: 10:30 Constitutional: This is a well developed, well nourished patient who is awake, alert, jh7 and in no acute distress. Head/Face: Normocephalic, atraumatic. Eyes: Pupils equal round and reactive to light, extra-ocular motions intact. Lids and lashes normal. Conjunctiva and sclera are non-icteric and not injected. Cornea within normal limits. Periorbital areas with no swelling, redness, or edema. Neck: Trachea midline, no thyromegaly or masses palpated, and no cervical lymphadenopathy. Supple, full range of motion without nuchal rigidity, or vertebral point tenderness. No Meningismus. Cardiovascular: Regular rate and rhythm with a normal S1 and S2. No gallops, murmurs, or rubs. Normal PMI, no JVD. No pulse deficits. Respiratory: Lungs have equal breath sounds bilaterally, clear to auscultation and percussion. No rales, rhonchi or wheezes noted. No increased work of breathing, no retractions or nasal flaring. Abdomen/GI: Soft, non-tender, with normal bowel sounds. No distension or tympany. No guarding or rebound. No evidence of tenderness throughout. Back: No spinal tenderness. No costovertebral tenderness. Full range of motion. Skin: Warm, dry with normal turgor. Normal color with no rashes, no lesions, and no evidence of cellulitis. MS/ Extremity: Pulses equal, no cyanosis. Neurovascular intact. Full, normal range of motion. Neuro: Awake and alert, GCS 15, oriented to person, place, time, and situation. Motor strength 5/5 in all extremities. Sensory grossly intact. Normal gait. Vital Signs: 10:28 BP 150 / 68; Pulse 77; Resp 17; Temp 97.3(TE); Pulse Ox 95% on R/A; Weight 117.93 kg; nj1 Height 6 ft. 0 in. ; Pain 6/10; 10:52 BP 137 / 69; Pulse 75; Resp 16; Temp 97.4(O); Pulse Ox 99% ; rs5 12:04 BP 127 / 71; Pulse 77; Resp 17; Pulse Ox 99% on R/A; rs5 13:05 BP 138 / 57; Pulse 78; Resp 16 S; Pulse Ox 96% on R/A; aa5 14:11 BP 128 / 67; Pulse 65; Resp 17; Pulse Ox 99% on R/A; aa5 15:30 BP 136 / 69; Pulse 62; Resp 17; Pulse Ox 99% on R/A; rs5 16:45 BP 132 / 66; Pulse 63; Resp 18; Pulse Ox 99% on R/A; rs5 17:50 BP 131 / 70; Pulse 63; Resp 17; Pulse Ox 99% on R/A; rs5 18:45 BP 120 / 68; Pulse 67; Resp 18; Pulse Ox 99% on R/A; rs5 10:28 Body Mass Index 35.26 (117.93 kg, 182.88 cm) nj1 10:28 Pain Scale: Adult nj1 MDM: 10:28 Patient medically screened. [facility] 13:50 Differential diagnosis: Acute MA, pneumonia, costochondritis, NSTEMI, unstable angina, [facility] stable angina, chest wall strain. Data reviewed: vital signs, nurses notes, lab test result(s), EKG, radiologic studies, plain films. Consideration of Admission/Observation Patient was admitted/placed on observation. Management of patient was discussed with the following: Hospitalist: SYLVESTER Rodriguez for Dr. Shafer. I considered the following discharge prescriptions or medication management in the emergency department Medications were administered in the Emergency Department. See MAR. Independent interpretation of the following test(s) in the Emergency Department EKG: See my EKG interpretation above. Historians other than the Patient: Spouse/Significant Other: . Care significantly affected by the following chronic conditions: Diabetes, Hypertension. Scoring Tools HEART Score: Total Score = 9. Counseling: I had a detailed discussion with the patient and/or guardian regarding the historical points, exam findings, and any diagnostic results supporting the discharge/admit diagnosis, the need for further work-up and treatment in the hospital. Response to treatment: the patient's symptoms have markedly improved after treatment. 05/26 10:33 Order name: Basic Metabolic Panel; Complete Time: 11:29 [facility] 05/26 10:33 Order name: CBC with Diff; Complete Time: 11:05 [facility] 05/26 10:33 Order name: NT PRO-BNP; Complete Time: 11:29 [facility] 05/26 10:33 Order name: PT-INR; Complete Time: 11:05 [facility] 05/26 10:33 Order name: Troponin HS; Complete Time: 11:29 [facility] 05/26 11:38 Order name: Troponin High Sensitivity: draw at 12:45pm; Complete Time: 13:47 [facility] 05/26 15:41 Order name: Ptt, Activated rs5 05/26 16:05 Order name: PTT, Activated Partial Thromb [facility] 05/26 19:18 Order name: Glucose, Ancillary Testing [facility] 05/26 20:49 Order name: PTT, Activated Partial Thromb [facility] 05/26 10:33 Order name: XRAY Chest (1 view); Complete Time: 11:34 [facility] 05/26 10:33 Order name: EKG; Complete Time: 10:34 [facility] 05/26 14:45 Order name: CONS Physician Consult [facility] 05/26 10:33 Order name: Cardiac monitoring; Complete Time: 10:35 [facility] 05/26 10:33 Order name: EKG - Nurse/Tech; Complete Time: 10:35 [facility] 05/26 10:33 Order name: IV Saline Lock; Complete Time: 10:35 [facility] 05/26 10:33 Order name: Labs collected and sent; Complete Time: 10:35 [facility] 05/26 10:33 Order name: O2 Per Protocol; Complete Time: 10:35 [facility] 05/26 10:33 Order name: O2 Sat Monitoring; Complete Time: 10:42 [facility] EC:33 Rate is 69 beats/min. Rhythm is irregular. QRS [place] is Normal. [place] interval is normal at [facility] 188 msec. QRS interval is normal at 108 msec. QT interval is normal at 400 msec. No Q waves. Clinical impression: Sinus arrythmia and Sinus arrhythmia with left anterior fascicular block. Administered Medications: 10:49 Drug: morphine IVP or IV 4 mg IVP once over 4 mins Route: IVP; Infused Over: 4 mins; rs5 Site: right forearm; 11:10 Follow up: Response: No adverse reaction; Pain is decreased rs5 10:49 Drug: Ondansetron IVP 4 mg IVP once; over 2 minutes Route: IVP; Site: right forearm; rs5 11:10 Follow up: Response: No adverse reaction; Pain is decreased rs5 15:55 Drug: Heparin ([place]-Bolus No thrombolytic) - HEParin IVP 60 units/kg IVP once; Max 5000 rs5 units {Co-Signature: delia (Abbey Walls RN).} Route: IVP; Site: left wrist; 16:10 Follow up: Response: No adverse reaction rs5 15:56 Drug: Heparin ([place] Drip) 12 units/kg/hr - ([place] [address] units, D5W IV 500 ml) IV at rs5 calculated rate Per protocol; Max initial rate 1000 units/hr {Co-Signature: delia (Abbey Walls RN).} Route: IV; Rate: calculated rate; Site: left wrist; 16:10 Follow up: Response: No adverse reaction rs5 Point of Care Testing: Blood Glucose: 19:00 Blood Glucose: 135 mg/dL; rs5 Ranges: Critical Glucose Levels:Adult <50 mg/dl or >400 mg/dl <40 mg/dl or >180 mg/dl Disposition Summary: 05/26/23 14:00 Hospitalization Ordered Notes: Hospitalization Status: Inpatient Admission [facility] Provider: Marshall Shafer [facility] Location: Telemetry/MedSurg (Inpatient) [facility] Condition: Stable [facility] Problem: new [facility] Symptoms: are unchanged [facility] Bed/Room Type: Standard [facility] Room Assignment: [facility](05/26/23 16:20) Diagnosis - Subsequent non-ST elevation (NSTEMI) myocardial infarction [facility] Forms: - Medication Reconciliation Form [facility] - SBAR form [facility] - Leadership Thank You Letter [facility] Signatures: Dispatcher [employer] Chari Ndiaye Audri, RN RN aa5 Michael Jonas FNP-Lazarus ZAMBRANO-Teagan Rider FNP FNP 7 Jasbir Mckeon RN RN rs5 Liz Santos RN RN nj1 Abbey Walls RN aa5 Corrections: (The following items were deleted from the chart) 10:57 10:36 PMHx: Diabetes - NIDDM; nj1 aa5 16:20 14:00 jh7 bd
[2023-05-26] MEDS ORDERED: HEPARIN 5000 UNIT/ML 1 ML VIAL ONE (15:37)
[2023-05-26] MEDS ORDERED: HEPARIN/D5W 25,000 UNIT/500 ML BAG IV ONE (15:37)
--- NOTE | 2023-05-26 15:56 | P.HP ---
Certification for Inpatient Patient admitted to: Inpatient With expected LOS: >2 Midnights Patient will require the following post-hospital care: None Practitioner: I am a practitioner with admitting privileges, knowledge of patient current condition, hospital course, and medical plan of care. Services: Services provided to patient in accordance with Admission requirements found in Title 42 Section 412.3 of the Code of Federal Regulations Patient History Date of Service: 05/26/23 Primary Care Provider: Dr. Saul Reason for admission: NSTEMI History of Present Illness: 68-year-old male patient of Dr. Saul with history of hypertension, hyperlipidemia, diabetes mellitus type 2, BPH presents emergency department with chief complaint of chest pain. He reports waking up and taking a shower, when he got out of the shower developing a stabbing-like chest pain without any other associated symptoms. He denies any similar symptoms in the past, had a heart catheterization in 2016 with stent placed to the LAD, at that time the OM was noted to be 80 to 90% stenosed. He came to the emergency department for evaluation, his initial high-sensitivity troponin was 23.5, a repeat troponin was performed 2 hours later which came back elevated at 111.1. Chest pain significant proved currently rated at a 2 out of 10, no STEMI criteria present on EKG. Started on heparin drip in ED, will be admitted for NSTEMI. Allergies levofloxacin [From Levaquin] Allergy (Verified 10/24/13 08:14) Hives/Rash Home Medications: Aspirin [Low Dose Aspirin EC] 1 tab PO DAILY 05/15/22 Atorvastatin Calcium [Lipitor] 1 tab PO DAILY 05/15/22 Calcium Carbonate [Calcium] 1 tab PO BID 05/15/22 Empagliflozin [Jardiance] 1 tab PO BEDTIME 05/15/22 Famotidine [Pepcid] 1 tab PO DAILY 05/15/22 Finasteride 1 tab PO DAILY 05/15/22 Gabapentin 1 cap PO BEDTIME 05/15/22 Glucosam/Chondroit/C/Manganese [Cosamin Ds Capsule] 1 tab PO TID 05/15/22 Insulin Glargine,Hum.rec.anlog [Lantus] 7 unit SQ BEDTIME 05/15/22 Insulin Glargine,Hum.rec.anlog [Lantus] 17 unit SQ DAILY 05/15/22 Metformin HCl 1 tab PO BID 05/15/22 Oxybutynin Chloride [Oxybutynin Chloride ER] 1 tab PO DAILY 05/15/22 Semaglutide [Ozempic] 1 mg SQ SEECOM 05/15/22 Sertraline [Zoloft*] 1.5 tab PO DAILY 05/15/22 Tamsulosin HCl 1 cap PO BID 05/15/22 Tizanidine [Zanaflex*] 1 tab PO DAILY PRN 05/15/22 Varenicline Tartrate [Varenicline] 1 mg PO BID 05/15/22 - Past Medical/Surgical History Diabetic: Yes -: depression -: high cholesterol -: NIDDM -: enlarged prostate -: HTN -: afib? -: left achiles tendon repair -: cardac cath (2015) -: septal sx -: cyst between groin and buttock removed infected MRSA 2003 - Family History Mother -: Heart disease, Lung disease, Diabetes, Cancer Notes: Father -: Cancer, Kidney disease Notes: since 2001 Brother -: Heart disease - Social History Smoking Status: Former smoker Alcohol use: No CD- Drugs: No Caffeine use: Yes Place of Residence: Home Review of Systems 10-point ROS is otherwise unremarkable Cardiovascular: Chest Pain Physical Examination - Physical Exam General: Alert, In no apparent distress, Oriented x3 HEENT: Atraumatic, PERRLA, Mucous membr. moist/pink Neck: Supple Respiratory: Clear to auscultation bilaterally, Normal air movement Cardiovascular: Regular rate/rhythm, Normal S1 S2 Gastrointestinal: Normal bowel sounds, No tenderness Musculoskeletal: No tenderness Integumentary: No rashes Neurological: Normal speech, Normal strength at 5/5 x4 extr, Normal tone, Normal affect - Studies Laboratory Data (last 24 hrs) 05/26/23 05/26/23 05/26/23 10:35 10:35 10:35 WBC 7.90 Hgb 14.8 Hct 43.4 Plt Count 124 L PT 11.0 INR 1.00 Sodium 135 L Potassium 3.9 BUN 13 Creatinine 1.18 Glucose 301 H Assessment and Plan - Plan Assessment: NSTEMIhistory of CAD Diabetes mellitus type [id number] with hyperglycemia Hypertension Hyperlipidemia BPH Plan: NSTEMIhistory of CAD Troponin trending up, continue to trend, monitor on telemetry, cardiology consult Continue heparin drip, n.p.o. after midnight in case of need for heart catheterization Last heart catheterization 2015 with stent to the LAD and 80-90% stenosed OM Continue aspirin, statin, beta-gopal, as needed morphine/nitro-pain significant improved Diabetes mellitus type [id number]-fxbdbtryv with hyperglycemia ACHS Accu-Chek, sliding scale insulin, A1c in the morning Hypertension Hyperlipidemia BPH Continue home medications DVT PPX: Heparin drip Code status: Full Discharge Plan: Home Plan to discharge in: 48 Hours - Advance Directives Does patient have a Living Will: No Does patient have a Durable POA for Healthcare: No - Code Status/Comfort Care Code Status Assessed: Yes (Full code) Critical Care: No Time Spent Managing Pts Care (In Minutes): 55
[2023-05-26] MEDS ORDERED: ONDANSETRON 4 MG/2 ML VIAL IV PRN (20:05)
[2023-05-26] MEDS ORDERED: MORPHINE 2 MG/ML SYR IV PRN (20:05)
[2023-05-26] MEDS ORDERED: HEPARIN/D5W 25,000 UNIT/500 ML BAG IV SCH (20:05)
[2023-05-26] MEDS ORDERED: NITROGLYCERIN 0.4 MG/TAB SL PRN (20:05)
[2023-05-26] MEDS: INSULIN REGULAR (HUMAN) 100 UNIT/ML SQ SCH ×2 (21:00→22:06)
[2023-05-26] MEDS: METOPROLOL TAR 25 MG TAB PO SCH (22:05)
[2023-05-26] MEDS: ATORVASTATIN 40 MG TAB PO SCH (22:06)
[2023-05-26 22:29] VITALS: BMI 35.2
[2023-05-27 05:03] LABS: Absolute Lymphocytes (CBC) 2.5 K/uL (0.7-4.9); Hematocrit 41.4 % (39.6-49.0); Lymphocytes % 29.4 % (15.3-44.8); MCV 88.6 fL (80-100); MPV 8.4 fL (7.6-11.3); Platelets 119 thou/uL (152-406); RBC Red Blood Cell Count 4.67 M/uL (4.33-5.43)
[2023-05-27 05:22] LABS: Potassium 3.9 mEq/L (3.5-5.1)
[2023-05-27] MEDS: METOPROLOL TAR 25 MG TAB PO SCH ×2 (06:33→18:12)
[2023-05-27] MEDS: INSULIN REGULAR (HUMAN) 100 UNIT/ML SQ SCH ×4 (07:30→19:52)
[2023-05-27] MEDS: ASPIRIN EC 81 MG TAB PO SCH (08:21)
--- NOTE | 2023-05-27 09:55 | P.PN ---
Date of Service: 05/27/23 Subjective: Still had some mild chest discomfort that evening Was given nitroglycerin with some improvement Troponin trending up ROS: 10 point ROS as noted above, otherwise negative Physical exam GEN: Alert, oriented, NAD HEENT: Normal conjunctiva, sclera anicteric CV: Regular rate and rhythm, no edema Pulm: Nonlabored respirations on room air ABD: Soft, nontender, nondistended MSK: No joint tenderness Integumentary: No rashes Neuro: Normal speech, normal affect Vitals reviewed Assessment: NSTEMIhistory of CAD Diabetes mellitus type 1agv-[id number]-uobihsibp with hyperglycemia Hypertension Hyperlipidemia BPH Plan: NSTEMIhistory of CAD Troponin trending up, currently at 4119, continue to trend continue heparin drip plan for heart cath today around noon last heart catheterization 2015 with stent to the LAD and 80-90% stenosed OM Continue aspirin, statin, beta-gopal, as needed morphine/nitro-pain significant improved Diabetes mellitus type 7ylx-nznoydn-kyfcgeyco with hyperglycemia ACHS Accu-Chek, sliding scale insulin, A1c in the morning Hypertension Hyperlipidemia BPH Continue home medications DVT PPX: Heparin drip Code status: Full Discharge Plan: Home Plan to discharge in: 48 Hours VTE: Code: Dispo: Time Spent Managing Pts Care (In Minutes): 35
[2023-05-27] MEDS ORDERED: FENTANYL CITR 100 MCG/2 ML ONE (13:00)
[2023-05-27] MEDS ORDERED: LIDOCAINE 1% 20 ML MDV ONE (13:00)
[2023-05-27] MEDS ORDERED: HEPA 1000U/500MLS 2,000 UNIT/1,000 ML BAG IV ONE (13:00)
[2023-05-27] MEDS ORDERED: CLOPIDOGREL 75 MG TABLET ONE (13:01)
[2023-05-27] MEDS ORDERED: MIDAZOLAM HCL 2 MG/2 ML INJ ONE (13:01)
[2023-05-27] MEDS ORDERED: VERAPAMIL HCL 10 MG/4 ML VIAL IV ONE (13:01)
[2023-05-27] MEDS ORDERED: HEPARIN 5000 UNIT/ML 1 ML VIAL ONE (13:01)
[2023-05-27] MEDS ORDERED: ASPIRIN 325 MG TAB ONE (13:01)
[2023-05-27] MEDS ORDERED: TICAGRELOR 90 MG TABLET PO ONE (13:02)
[2023-05-27] MEDS ORDERED: NITROGLYCERIN/D5W 50 MG/250 ML BTL IV ONE (13:02)
[2023-05-27] MEDS ORDERED: HEPARIN 10,000 UNIT/10 ML VIAL IV ONE ×2 (13:02→15:16)
[2023-05-27] MEDS ORDERED: ATROPINE SULF 1 MG/10 ML SYR IV ONE (13:02)
[2023-05-27] MEDS ORDERED: NA CHLORIDE 0.9% 500 ML ONE (13:13)
--- NOTE | 2023-05-27 16:01 | OP ---
Date of Procedure: 05/27/2023 Surgeon: JENNIFER LOPEZ Procedures Performed: 1.Selective coronary angiogram. 2.Left heart catheterization. 3.PCI of severe proximal OM1 branch which is a culprit for the CO. I used a 2.5 x 60 mm Synergy greg g-eluting stent. 4.PCI of severe proximal left circumflex stenosis. I used 3.0 x 60 mm Synergy drug-eluting stent. Indication: Oqd-[id number] myocardial infarction. Access: Right radial artery 6-Mexican closed with TR band. Anesthesia: Total sedation time was 1 hour. I used fentanyl and versed. Description Of Procedure: After risks, benefits, alternatives were explained, patient agreed to proc edure and signed informed consent. Patient was brought into the cardiac catheterization laboratory, prepped and draped in the usual sterile fashion. Then I accessed right radial artery using pediatric micropuncture kit, placed a 6-Mexican Slender sheath and took 5-Mexican [place] 4.0 catheter over a J-wi re into the aortic root, engaged the left main, took standard views, then in the RCA, took standard v iews and the catheter was pushed over the wire into the LV, measured the LVEDP. Pullback did not rec ord any gradient. I then gave systemic heparin to assure ACT level above 250, loaded with 600 mg of Plavix and patient already received aspirin and took a 6-Mexican EBU3.5 guide over J-wire into the aor tic root, engaged the left main and then I took a short Runthrough wire into the left circumflex, harinder catherine it in the OM crossing the area of stenosis and did balloon angioplasty followed by stent placemen t of 2.5 x 60 mm Synergy drug-eluting stent with excellent results and then the wire was removed and then placed in the circumflex itself and the proximal lesion was dilated using a 3.0 balloon and then placed 3.0 x 60 mm Synergy drug-eluting stent in the proximal left circumflex with excellent expansi on. There was a branch of the OM1 that was not present in the initial angiogram. After the stent pl acement, it came back with KENNY-3 flow. I then removed the wire. Final angiogram was satisfactory. Removed the catheter and the sheath, placed TR band with good hemostasis. Findings: 1.Left main; large and normal. 2.LAD; moderate size vessel with proximally patent stent. Then, mid segment has 50% stenosis at the diagonal takeoff. Diagonal branch has luminal irregularities. The rest of the LAD is with luminal irregularities. 3.Left circumflex; very large and proximal 80% stenosis, status post successful PCI as above and the n there is a severe stenosis in the proximal OM1 branch which is a culprit for the CO, status post riggs ccessful PCI after the stent placement. A branch of it came back with KENNY-3 flow and has about 80% ostial stenosis, but I believe it is a plaque shift and it is a small artery less than 1.5 mm in diam eter, so left for medical management and the circumflex itself in the mid segment has 40% stenosis. 4.RCA; large and dominant with diffuse long mid 50% stenosis and distal is 80% stenosis before the b ifurcation of the PDA and PLB. 5.LVEDP is elevated at 19 mmHg. Conclusions: 1.Severe left circumflex/OM1 stenosis, status post successful PCI as above. 2.Severe distal RCA stenosis, plan for staged PCI in 6 weeks. 3.Moderate coronary artery disease elsewhere with mildly elevated LVEDP. Plan: Aspirin, Plavix, high-dose statin, and diuretics. Follow up with me in the office in 1 week. SR/MODL Voice ID: [id number] Report ID: [id number]
--- NOTE | 2023-05-27 16:50 | EKG ---
Test Date: 2023-05-27 Test Time: 00:46:20 Valet Attendant: SREG MEASUREMENT RESULTS: Intervals: Rate: 71 [place]: QRSD: 112 QT: 388 QTc: 421 [place]: P: 54 [place]: QRS: -58 T: -7 INTERPRETIVE STATEMENTS: Sinus rhythm with 2nd degree AV block (Mobitz I) with occasional premature ventricular complexes Left anterior fascicular block Abnormal ECG Compared to ECG 05/26/2023 10:33:11 Ventricular premature complex(es) now present Sinus arrhythmia no longer present Electronically Signed On 05-27-23 16:48:52 COATING MACHINE OPERATOR HELPER by Joseph Whitfield
--- NOTE | 2023-05-27 16:53 | EKG ---
Test Date: 2023-05-26 Test Time: 10:33:11 Inclusion Internship: FELICITY MEASUREMENT RESULTS: Intervals: Rate: 69 MT: 188 QRSD: 108 QT: 400 QTc: 428 Percy: P: 74 MT: 188 QRS: -47 T: 17 INTERPRETIVE STATEMENTS: Sinus rhythm with marked sinus arrhythmia Left anterior fascicular block Abnormal ECG Compared to ECG 12/24/2018 17:24:16 Left anterior fascicular block now present Sinus bradycardia no longer present Atrial premature complex(es) no longer present Electronically Signed On 05-27-23 16:50:00 STRAP BUCKLER MACHINE by Joseph Whitfield
[2023-05-27] MEDS ORDERED: FUROSEMIDE 20 MG/ 2ML VIAL IV ONE (19:25)
[2023-05-27] MEDS: ATORVASTATIN 40 MG TAB PO SCH (20:45)
[2023-05-27 21:03] VITALS: O2SAT 97
[2023-05-28 02:38] LABS: Absolute Lymphocytes (CBC) 1.8 K/uL (0.7-4.9); Hematocrit 41.9 % (39.6-49.0); Lymphocytes % 22.2 % (15.3-44.8); MCV 87.9 fL (80-100); MPV 8.7 fL (7.6-11.3); Platelets 138 thou/uL (152-406); RBC Red Blood Cell Count 4.76 M/uL (4.33-5.43)
[2023-05-28 03:00] LABS: Potassium 3.5 mEq/L (3.5-5.1)
[2023-05-28] MEDS: METOPROLOL TAR 25 MG TAB PO SCH (05:33)
[2023-05-28] MEDS: INSULIN REGULAR (HUMAN) 100 UNIT/ML SQ SCH (07:30)
[2023-05-28 08:21] VITALS: BP 136/80; TEMP 97.2
--- NOTE | 2023-05-28 08:34 | P.DS ---
Admission Date: 05/26/23 Discharge Date: 05/28/23 Primary Care Provider: Dr. Saul Disposition: ROUTINE DISCHARGE Discharge Condition: GOOD Reason for Admission: NSTEMI Consultations: CardiologyDr. Whitfield Procedures: Heart cath 05/27/2023 Brief History of Present Illness: 68-year-old male patient of Dr. Saul with history of hypertension, hyperlipidemia, diabetes mellitus type 2, BPH presents emergency department with chief complaint of chest pain. He reports waking up and taking a shower, when he got out of the shower developing a stabbing-like chest pain without any other associated symptoms. He denies any similar symptoms in the past, had a heart catheterization in 2016 with stent placed to the LAD, at that time the OM was noted to be 80 to 90% stenosed. He came to the emergency department for evaluation, his initial high-sensitivity troponin was 23.5, a repeat troponin was performed 2 hours later which came back elevated at 111.1. Chest pain significant proved currently rated at a 2 out of 10, no STEMI criteria present on EKG. Started on heparin drip in ED, will be admitted for NSTEMI. Hospital Course: Problem List NSTEMI/ACSS/P PCI of left circumflex/OM1 with severe stenosis-plan for staged cath in 6 weeks of distal RCA Elevated LVEDP Diabetes mellitus type 2 with hyperglycemia Hypertension Hyperlipidemia BPH Patient was admitted to the hospital for chest pain, NSTEMI. Initial high- sensitivity troponin 111, continue to trend up peaking at 4119. He was placed on heparin drip and had a heart catheterization performed on 05/27/2023. PCI was performed of both left circumflex and OM1 areas of severe stenosis Cardiology recommends staged cath with planned PCI of the severe distal RCA stenosis in 6 weeks Moderate coronary artery disease elsewhere with mildly elevated LVEDP New medications: Clopidogrel 75 mg daily-very important to take this medication to prevent problems with your stents Lasix 20 mg daily for 1 week until follow-up with cardiology Metoprolol 12.5 mg twice daily Continue other home medications including her aspirin, atorvastatin Follow-up with cardiology and your primary care doctor Dr. Saul in 1 week. Vital Signs/Physical Exam: Temp Pulse Resp BP Pulse Ox 97.2 F 66 18 136/80 97 05/28/23 08:00 05/28/23 08:00 05/28/23 08:00 05/28/23 08:00 05/28/23 08:00 General: Alert, In no apparent distress, Oriented x3 HEENT: Atraumatic, EOMI Neck: Supple Respiratory: Clear to auscultation bilaterally, Normal air movement Cardiovascular: Regular rate/rhythm, Normal S1 S2 Gastrointestinal: Normal bowel sounds Musculoskeletal: No tenderness Integumentary: No rashes Neurological: Normal speech Laboratory Data at Discharge: WBC 8.30 thou/uL (4.3-10.9) 05/28/23 01:38 Hgb 14.2 g/dL (13.6-17.9) 05/28/23 01:38 Hct 41.9 % (39.6-49.0) 05/28/23 01:38 Plt Count 138 thou/uL (152-406) L 05/28/23 01:38 PT 11.0 SECONDS (9.5-12.5) 05/26/23 10:35 INR 1.00 05/26/23 10:35 APTT 49.0 SECONDS (24.3-36.9) H 05/27/23 09:16 Sodium 136 mEq/L (136-145) 05/28/23 01:41 Potassium 3.5 mEq/L (3.5-5.1) 05/28/23 01:41 BUN 18 mg/dL (7-18) 05/28/23 01:41 Creatinine 1.09 mg/dL (0.70-1.30) 05/28/23 01:41 Glucose 190 mg/dL (74-106) H 05/28/23 01:41 Triglycerides 141 mg/dL (<150) 05/27/23 04:50 Cholesterol 78 mg/dL (<200) 05/27/23 04:50 HDL Cholesterol 43 mg/dL (40-60) 05/27/23 04:50 Cholesterol/HDL Ratio 1.81 05/27/23 04:50 Home Medications: Aspirin [Low Dose Aspirin EC] 1 tab PO DAILY 05/15/22 Atorvastatin Calcium [Lipitor] 1 tab PO DAILY 05/15/22 Calcium Carbonate [Calcium] 1 tab PO BID 05/15/22 Empagliflozin [Jardiance] 1 tab PO BEDTIME 05/15/22 Famotidine [Pepcid] 1 tab PO DAILY 05/15/22 Finasteride 1 tab PO DAILY 05/15/22 Gabapentin 1 cap PO BEDTIME 05/15/22 Glucosam/Chondroit/C/Manganese [Cosamin Ds Capsule] 1 tab PO TID 05/15/22 Insulin Glargine,Hum.rec.anlog [Lantus] 7 unit SQ BEDTIME 05/15/22 Insulin Glargine,Hum.rec.anlog [Lantus] 17 unit SQ DAILY 05/15/22 Metformin HCl 1 tab PO BID 05/15/22 Oxybutynin Chloride [Oxybutynin Chloride ER] 1 tab PO DAILY 05/15/22 Semaglutide [Ozempic] 1 mg SQ SEECOM 05/15/22 Sertraline [Zoloft*] 1.5 tab PO DAILY 05/15/22 Tamsulosin HCl 1 cap PO BID 05/15/22 Tizanidine [Zanaflex*] 1 tab PO DAILY PRN 05/15/22 Varenicline Tartrate 1 mg PO BID 05/15/22 Aspirin [Aspirin EC] 81 mg PO DAILY #30 tab 05/28/23 Clopidogrel Bisulfate [Plavix] 75 mg PO DAILY #30 tab 05/28/23 Furosemide [Lasix] 20 mg PO DAILY 7 Days #7 tab 05/28/23 Metoprolol Tartrate 12.5 mg PO BID #30 tab 05/28/23 New Medications: Aspirin [Aspirin EC] 81 mg PO DAILY #30 tab Furosemide [Lasix] 20 mg PO DAILY 7 Days #7 tab Metoprolol Tartrate 12.5 mg PO BID #30 tab Clopidogrel Bisulfate [Plavix] 75 mg PO DAILY #30 tab Physician Discharge Instructions: Patient was admitted to the hospital for chest pain, NSTEMI. Initial high- sensitivity troponin 111, continue to trend up peaking at 4119. He was placed on heparin drip and had a heart catheterization performed on 05/27/2023. PCI was performed of both left circumflex and OM1 areas of severe stenosis Cardiology recommends staged cath with planned PCI of the severe distal RCA stenosis in 6 weeks Moderate coronary artery disease elsewhere with mildly elevated LVEDP New medications: Clopidogrel 75 mg daily-very important to take this medication to prevent problems with your stents Lasix 20 mg daily for 1 week until follow-up with cardiology Metoprolol 12.5 mg twice daily Continue other home medications including her aspirin, atorvastatin Follow-up with cardiology and your primary care doctor Dr. Saul in 1 week. Diet: AHA Activity: Ad chago Followup: Elio Saul MD [Primary Care Provider] - Time spent managing pt's care (in minutes): 30
[2023-05-28] MEDS: ASPIRIN EC 81 MG TAB PO SCH (08:46)
[2023-05-28] MEDS ORDERED: CLOPIDOGREL 75 MG TABLET PO SCH (09:00)
== END 2023-05-28 10:02 | disposition home or self-care (01) | DRG 322 ==
LOC: ER 10:23 → EEVIPCON 14:58 → ERHOLD 14:58 → 2ND 20:10
PROVIDERS: ADMIT Hospitalist; ATTEND Hospitalist
PROC: 027035Z Dilation of Coronary Artery, One Artery with Two Drug-eluting Intraluminal Devices, Percutaneous Approach (ICD-10-PCS; principal; 2023-05-27)
PROC: 4A023N7 Measurement of Cardiac Sampling and Pressure, Left Heart, Percutaneous Approach (ICD-10-PCS; 2023-05-27)
PROC: B2111ZZ Fluoroscopy of Multiple Coronary Arteries using Low Osmolar Contrast (ICD-10-PCS; 2023-05-27)
DX: I21.4 Non-ST elevation (NSTEMI) myocardial infarction (principal); I10 Essential (primary) hypertension; I48.91 Unspecified atrial fibrillation; N40.0 Benign prostatic hyperplasia without lower urinary tract symptoms; E78.00 Pure hypercholesterolemia, unspecified; E11.65 Type 2 diabetes mellitus with hyperglycemia; I25.10 Atherosclerotic heart disease of native coronary artery without angina pectoris; I25.2 Old myocardial infarction; Z79.4 Long term (current) use of insulin; Z95.1 Presence of aortocoronary bypass graft; Z88.1 Allergy status to other antibiotic agents; Z79.82 Long term (current) use of aspirin; Z79.84 Long term (current) use of oral hypoglycemic drugs; Z86.14 Personal history of Methicillin resistant Staphylococcus aureus infection; Z87.891 Personal history of nicotine dependence; Z79.899 Other long term (current) drug therapy
CPT/HCPCS: 36415; 71045; 76937; 80048; 80061; 82947; 83036; 83880; 84484; 85025; 85347; 85610; 85730; 93005; 93458; 99285; C1725; C1893; C9600; J0461; J1644; J1815; J1940; J2001; J2250; J2270; J2405; J3010; J7040; Q9966

== ENCOUNTER 2023-06-09 17:58 | Observation (INO) | payer OTHER ==
[2023-06-09 18:22] LABS: Absolute Lymphocytes (CBC) 2.3 K/uL (0.7-4.9); Hematocrit 40.9 % (39.6-49.0); Lymphocytes % 31.2 % (15.3-44.8); MCV 89.2 fL (80-100); MPV 8.1 fL (7.6-11.3); Platelets 153 thou/uL (152-406); RBC Red Blood Cell Count 4.58 M/uL (4.33-5.43)
--- NOTE | 2023-06-09 18:24 | RAD REPORT ---
EXAM DESCRIPTION: Shima Single View06/09/2023 6:17 pm CLINICAL HISTORY: Chest pain COMPARISON: May 2023 FINDINGS: The lungs appear clear of acute infiltrate. The heart is normal size IMPRESSION: No acute abnormalities displayed
[2023-06-09 18:25] LABS: Protime INR 0.95
--- OUTSIDE RECORDS SUMMARY | 2023-06-09 18:36 | XMS REPORT | Continuity of Care Document ---
:1955 [facility] t Address [address] [place] [address] [place] [id number] Care Team Providers Name Role Phone Asked, No Pcp Primary Care Physician Unavailable BENEDICT JAVED Attending Clinician Unavailable Benedict Javed MD Attending Clinician Goldfarb_R Attending Clinician Unavailable Jeremiah Prieto Attending Clinician [phone] Douglas Admitting Clinician Unavailable Payers Payer Name Policy Type Policy Number Effective Date Expiration Date S ource [employer] MEDICARE ADV [id number] 2021 00:00:00 GENERIC MEDICARE [id number] 2021 SUPPLEMENT 00:00:00 [facility] CHOICE [id number] 2021 CARD AND PC3 00:00:00 HU[employer]NA CLAIMS [id number] OFFICE HUMANA (MEDICARE [id number] REPLACEMENT/ADVANTA GE - PPO) Problems Condition Condition Condition Status Onset Resolution Last Treating Co mments Source Name Details Category Date Date Treatment Clinician Date Unstable Unstable Disease Active [facility] di angina angina 8-20 [facility] 00:00: Hospita 00 l Urinary Urinary Problem Active [place] tract Tract 2-13 [facility] obstructio Obstructio 00:00: Ur ology n n 00 Benign Benign Problem Active [place] prostatic Prostatic 2-13 Metr o hyperplasi Hyperplasi 00:00: Ur ology a a 00 Lower Lower Problem Active [place] urinary Urinary 2-13 [facility] tract Tract 00:00: [...] Allergy [facility]: [facility] 00 [place] LEVOFLOX Allergy Active High Hives [facility]IN [facility]20 [facility] 00:00: [facility] 00 [place] Levaquin Allergy Active [place] to [facility] e Social History Social Habit Start Date Stop Date Quantity Comments Source History of tobacco Cigarette Smoker [facility] use [facility] Sexual orientation [facility] Tobacco use and 2022-03-20 2022-03-[address] [facility] St Kaylee kes exposure 00:00:00 00:00:00 tobacco non-user [facility] Cigarettes smoked 2022-03-20 2022-03-[address] [facility] current (pack per 00:00:00 00:00:00 [facility] Center day) - Reported Alcohol intake 2022-03-20 2022-03-20 [facility] History of Social 2018-05-22 2018-05-[address] function 00:00:00 00:00:00 Hospital Sex [birth year] [facility] melas 00:00:00 00:00:00 [facility] Smoking Status Start Date Stop Date Source Never Smoker [facility] ology Smokes tobacco daily 2022-03-20 00:00:00 [facility] Ex-smoker 2018-02-22 00:00:00 2018-02-22 00:00:00 [facility] Ordered Filled Start Stop Current Ordering Indication Dosage Frequency Signature Comments Components Source Medication Medication Date Date Medication? Clinician (SIG) Name Name EMPAGLIFLOZ Yes Take by [facility] 9-[facility]. [facility] 09:26: [address] EMPAGLIFLOZ Yes Take by [facility] 9-15 [facility]. [facility] 09:26: [address] EMPAGLIFLOZ Yes Take by [facility] IN ORAL 9-15 [facility]. [facility] 09:26: [address] tamsulosin 2021- No .4mg Q.5D Take 0.[address] (FLOMAX) 9-15 09-15 mg by [facility] 0.4 mg Cap 09:19: 00:00 mouth 2 Med ical 24 hr 45 :00 (two) Center capsule times daily. pioglitazon 0 Yes 30mg Take [address] [facility] (ACTOS) 9-15 by mouth. [facility]ukes 15 MG 08:52: Medical tablet [address] [place] [address] metFORMIN Yes 1000mg Take 1,[address] (GLUCOPHAGE 9-15 mg by Lukes ) 1000 MG 08:52: mouth 2 Medic al tablet 25 (two) Center times daily with breakfast and dinner. aspirin 81 0 Yes 81mg QD Take [address] MG EC 9-15 by mouth [facility] tablet 08:52: daily. [address] atorvastati Yes Take by [facility] n calcium 9-15 mouth. [facility]ukes (ATORVASTAT 08:52: Medica l IN ORAL) [address] [place] [address] pioglitazon 0 Yes 30mg Take [address] [facility] (ACTOS) 9-15 by mouth. [facility]ukes 15 MG 08:52: Medical tablet [address] [place] [address] metFORMIN Yes 1000mg Take 1,[address] (GLUCOPHAGE 9-15 mg by Lukes ) 1000 MG 08:52: mouth 2 Medic al tablet 25 (two) Center times daily with breakfast and dinner. aspirin 81 0 Yes 81mg QD Take [address] MG EC 9-15 by mouth [facility] tablet 08:52: daily. [address] atorvastati Yes Take by [facility] n calcium 9-15 mouth. [facility]ukes (ATORVASTAT 08:52: Medica l IN ORAL) [address] [place] [address] pioglitazon 0 Yes 30mg Take [address] [facility] (ACTOS) 9-15 by mouth. Lukes 15 MG 08:52: Medical tablet [address] [place] [address] metFORMIN Yes 1000mg Take 1,[address] (GLUCOPHAGE 9-15 mg by Lukes ) 1000 MG 08:52: mouth 2 Medic al tablet 25 (two) Center times daily with breakfast and dinner. aspirin 81 Yes 81mg QD Take [address] MG EC 03-20 by mouth [facility] tablet 08:52: daily. Medical 25 Center atorvastati Yes Take by [facility] n calcium 03-20 mouth. [facility]ukes (ATORVASTAT 08:52: Medica l IN ORAL) 25 Center tamsulosin 2022- No .8mg QD Take [address] (FLOMAX) 03-20-14 capsules [facility] 0.4 mg Cap 00:00: 23:59 (0.8 mg Med ical 24 hr 00 :00 total) by Center capsule mouth daily for 180 days. tamsulosin 2022- No .8mg QD Take [address] (FLOMAX) 03-20-14 capsules [facility] 0.4 mg Cap 00:00: 23:59 (0.8 mg Med ical 24 hr 00 :00 total) by Center capsule mouth daily for 180 days. tamsulosin 2022- No .8mg QD Take [address] (FLOMAX) 03-2014 capsules [facility] 0.4 mg Cap 00:00: 23:59 (0.8 mg Med ical 24 hr 00 :00 total) by Center capsule mouth daily for 180 days. tadalafiL 0 2- No 5mg QD Take 1 [facility] (CIALIS) 5 -19 06-14 tablet (5 [place] MG tablet 00:00: 23:59 mg total) Me dical 00 :00 by mouth Center daily for 90 days. tadalafiL 0 2021- No 5mg QD Take 1 [facility] (CIALIS) 5 -15 12-14 tablet (5 [place] MG tablet 00:00: 23:59 mg total) Me dical 00 :00 by mouth Center daily for 90 days. tadalafiL 0 2021- No 5mg QD Take 1 [facility] (CIALIS) 5 9-15 12-14 tablet (5 [place] MG tablet 00:00: 23:59 mg total) Me dical 00 :00 by mouth Center daily for 90 days. clopidogrel Yes 75mg QD Take 75 mg Methodi [...] tablet 10:22: daily. Hospit a 34 l sertraline 2018-0 Yes 100mg QD [...] (two) l times a day with meals. lisinopril 2018-0 Yes 5mg QD Take 5 mg Me thodi (PRINIVIL,Z 8-[address] ESTRIL) 5 10:22: daily. Hospit a mg tablet 34 l glipiZIDE 2018-0 Yes 10mg Q.5D Take 10 [...] MG 10:22: daily. Hospita tablet 34 l tamsulosin 2018-0 Yes .4mg [...] mouth Hospita capsule 34 daily. l atorvastati Yes 80mg QD Take 80 mg Methodi n (LIPITOR) 8-[address] 80 MG 10:22: daily. Hospita tablet 34 l sertraline Yes 100mg QD Take 100 Me thodi (ZOLOFT) 25 8-[address] MG tablet 10:22: mouth Hospita 34 daily. l pioglitazon Yes 30mg QD Take 30 mg Methodi e (ACTOS) [address] 15 MG 10:22: daily. Hospita tablet 34 l tamsulosin tamsulosin No tamsulosin [place] 0.4 mg 0.4 mg 0.4 mg [facility] capsule capsule capsule Urolog y Trulicity Trulicity No Trulicity [place] 0.75 mg/0.5 0.75 mg/0.5 0.75 M etro mL mL mg/0.5 mL Urology subcutaneou subcutaneou subcutaneo s pen s pen us pen injector injector injector Zoloft Zoloft No Zoloft [place] [facility] amoxicillin amoxicillin No amoxicilli [place] [phone] n 875 [facility] mg-potassiu mg-potassiu mg-potassi Urology m m um clavulanate clavulanate clavulanat 125 mg 125 mg e 125 mg tablet tablet tablet aspirin aspirin No aspirin [place] [facility] atorvastati atorvastati No atorvastat [place] n n in [facility] atorvastati atorvastati No atorvastat [place] n 80 mg n 80 mg in 80 mg [facility] tablet tablet tablet Urology azithromyci azithromyci No azithromyc [place] n 250 mg n 250 mg in 250 mg Me tro tablet tablet tablet Urology benzonatate benzonatate No benzonatat [place] 100 mg 100 mg e 100 mg [facility] capsule capsule capsule Urolog y Calcium 600 Calcium 600 No Calcium [place] 600 [facility] clopidogrel clopidogrel No 1 Q1D clopidogre [place] 75 mg 75 mg l 75 mg [facility] tablet Take tablet Take tablet Urology 1 tablet 1 tablet Take 1 every day every day tablet by oral by oral every day route. route. by oral route. doxycycline doxycycline No doxycyclin [place] hyclate 100 hyclate 100 e hyclate [facility] mg capsule mg capsule 100 mg U rology capsule finasteride finasteride No finasterid [place] [facility] finasteride finasteride No finasterid [place] 5 mg tablet 5 mg tablet e 5 mg [facility] tablet Urology glipizide glipizide No glipizide [place] [facility] glipizide glipizide No glipizide [place] 10 mg 10 mg 10 mg [facility] tablet tablet tablet Urology Januvia 100 Januvia 100 No Januvia [place] mg tablet mg tablet 100 mg Met ro tablet Urology Jardiance Jardiance No Jardiance [place] 25 mg 25 mg 25 mg [facility] tablet tablet tablet Urology lisinopril lisinopril No lisinopril [facility] lisinopril lisinopril No lisinopril [place] 5 mg tablet 5 mg tablet 5 mg M etro tablet Urology metformin metformin No metformin [place] [facility] metformin metformin No metformin [place] 1,000 mg 1,000 mg 1,000 mg Met ro tablet tablet tablet Urology methylpredn methylpredn No methylpred [place] isolone 4 isolone 4 nisolone 4 [facility] mg tablets mg tablets mg tablets Urology in a dose in a dose in a dose pack pack pack metoprolol metoprolol No metoprolol [place] riggs-hydrochl riggs-hydrochl riggs-hydroch [facility] orothiaz orothiaz lorothiaz Ur ology mupirocin 2 mupirocin 2 No mupirocin [place] % topical % topical 2 % [facility] ointment ointment topical Urol ogy ointment Myrbetriq Myrbetriq No Myrbetriq [place] 50 mg 50 mg 50 mg [facility] tablet,exte tablet,exte tablet,ext Urology nded nded ended release release release Take 1 Take 1 Take 1 tablet tablet tablet every day every day every day by oral by oral by oral route for route for route for 90 days. 90 days. 90 days. Pepcid Pepcid No Pepcid [place] [facility] pioglitazon pioglitazon No pioglitazo [place] e e ne [facility] pioglitazon pioglitazon No pioglitazo [place] e 30 mg e 30 mg ne 30 mg [facility] tablet tablet tablet Urology Reprexain Reprexain No Reprexain [facility] [place] Urolog solifenacin solifenacin No solifenaci [place] 10 mg 10 mg n 10 mg [facility] tablet tablet tablet Urology Vital Signs Vital Name Observation Time Observation Value Comments Source WEIGHT 2022-03-20 08:50:00 114.352 kg Height 2021-03-07 00:00:00 72 [in_i] [facility] [place] [facility] BMI (Body Mass Index) 2021-03-07 00:00:00 36.3 kg/m2 [facility] Body Weight 2021-03-07 00:00:00 268 [lb_av] [facility] Systolic blood 2022-03-20 08:50:00 98 mm[Hg] [facility] Diastolic blood 2022-03-20 08:50:00 55 mm[Hg] [facility] Heart rate 2022-03-20 08:50:00 66 /min [facility] Body temperature 2022-03-20 08:50:00 36.17 [place] Body weight 2022-03-20 08:50:00 114.352 kg [facility] Procedures Procedure Date / Time Performed Performing Clinician [facility] + 2022-03-20 11:30:00 Benedict Javed [facility] PSA 2022-03-20 11:30:00 Benedict Javed [facility] Colonoscopy with Biopsy [facility] [place] Urolog CARDIO- Heart Surgery [facility] tro (Stents) Urology Plan of Care Planned Activity Planned Date Details Comments Source Future Scheduled 2023-06-05 Screening for [facility] Test 18:48:40 malignant neoplasm of colon (procedure) [code = 806413707] Future Scheduled 2023-06-05 [facility] Test 18:48:40 malignant neoplasm of colon (procedure) [code = 500640089] Future Scheduled 2023-06-05 [facility] Test 18:48:40 malignant neoplasm of colon (procedure) [code = 079466248] Future Scheduled 2023-06-05 [facility]19 [facility]:48[facility]40 [code = COVID-19 VACCINE (#1)] Future Scheduled 2023-06-05 [facility] Test 18:48:40 malignant neoplasm of colon (procedure) [code = 837169526] Future Scheduled 2023-06-05 [facility] Test 18:48:40 malignant neoplasm of colon (procedure) [code = 140865885] Future Scheduled 2023-06-05 SHINGLES VACCINES (1 [facility] 18:48:40 of 2) [code = SHINGLES VACCINES (1 of 2)] Future Scheduled 2023-06-05 65+ [facility]OCOCCAL [facility] Test 18:48:40 VACCINE (1 - PCV) [code = 65+ PNEUMOCOCCAL VACCINE (1 - PCV)] Future Scheduled 2023-06-05 [facility] 18:48:40 [code = INFLUENZA VACCINE (#1)] Future Scheduled 2023-05-01 [facility] Test 19:42:19 malignant neoplasm of colon (procedure) [code = 429124089] Future Scheduled 2023-05-01 [facility] Test 19:42:19 malignant neoplasm of colon (procedure) [code = 156521941] Future Scheduled 2023-05-01 [facility] Test 19:42:19 malignant neoplasm of colon (procedure) [code = 255023438] Future Scheduled 2023-05-01 [facility]:42:19 [code = COVID-19 VACCINE (#1)] Future Scheduled 2023-05-01 [facility] Test 19:42:19 malignant neoplasm of colon (procedure) [code = 686875798] Future Scheduled 2023-05-01 [facility] Test 19:42:19 malignant neoplasm of colon (procedure) [code = 684801575] Future Scheduled 2023-05-01 SHINGLES VACCINES (1 [facility] 19:42:19 of 2) [code = SHINGLES VACCINES (1 of 2)] Future Scheduled 2023-05-01 65+ [facility]OCOCCAL [facility] Test 19:42:19 VACCINE (1 - PCV) [code = 65+ PNEUMOCOCCAL VACCINE (1 - PCV)] Future Scheduled 2023-05-01 INFLUENZA [facility]ACCINE (#[facility]) [facility] 19:42:19 [code = INFLUENZA VACCINE (#1)] Future Scheduled 2023-03-[address] [facility] Test 00:00:00 [facility] r Screening (12+) [code = Tobacco Cessation Counseling and Screening (12+)] Future Scheduled 2023-03-[address] [facility] Test 00:00:00 [facility] Screening (12+) [code = Tobacco Cessation Counseling and Screening (12+)] Future Scheduled 2023-03-06 Influenza Vaccine (#1) [facility] 00:00:00 [code = Influenza Medical Ce nter Vaccine (#1)] Future Scheduled 2023-03-06 Influenza Vaccine (#1) [facility] Test 00:00:00 [code = Influenza Medical Ce nter Vaccine (#1)] Future Scheduled 2022-07-[address] [facility] Test 00:00:00 (12+) [code = Medical Center DEPRESSION SCREENING (12+)] Future Scheduled 2022-07-06 FALLS RISK SCREENING [facility] Test 00:00:00 [code = FALLS RISK Medical C enter SCREENING] Future Scheduled 2022-07-[address] [facility] Test 00:00:00 (12+) [code = Medical Center DEPRESSION SCREENING (12+)] Future Scheduled 2022-07-06 FALLS RISK SCREENING [facility] Test 00:00:00 [code = FALLS RISK Medical C enter SCREENING] Future Scheduled 2022-05-11 HEPATITIS B VACCINES [facility] Test 04:55:41 (1 of 3 - 3-dose series) [code = HEPATITIS B VACCINES (1 of 3 - 3-dose series)] Future Scheduled 2022-05-11 COVID-19 VACCINE (#1) [facility] Hospital Test 04:55:41 [code = COVID-19 VACCINE (#1)] Future Scheduled 2022-05-11 COLONOSCOPY SCREENING [facility] Hospital Test 04:55:41 [code = COLONOSCOPY SCREENING] Future Scheduled 2022-05-11 SHINGLES VACCINES (1 [facility] Test 04:55:41 of 2) [code = SHINGLES VACCINES (1 of 2)] Future Scheduled 2022-05-11 65+ P[facility]UMOCOCCAL [facility] Test 04:55:41 VACCINE (1 - PCV) [code = 65+ PNEUMOCOCCAL VACCINE (1 - PCV)] Future Scheduled 2022-05-11 INFLUENZA VACCINE [facility] Test 04:55:41 [code = INFLUENZA VACCINE] [...] screening Medical C enter (procedure) [code = 178919310] Future Scheduled 2019-04-05 PNEUMOCOCCAL 65+ YRS [facility] [...] Medica l Center colon (procedure) [code = 643438562] Future Scheduled [address] [facility] [place] Test 00:00:00 malignant neoplasm of Medica l Center colon (procedure) [code = 830300918] Future Scheduled [address] [facility] [place] [facility] Test 00:00:00 malignant neoplasm of Medica l Center colon (procedure) [code = 357940706] Future Scheduled [address] [place] [facility] Test 00:00:00 malignant neoplasm of Medica l Center colon (procedure) [code = 529596096] Future Scheduled 1955 Sigmoidoscopy [code [facility] Test [facility]] Medical Cente r Future Scheduled [address] [facility] Test 00:00:00 (combo) [code = CT Medical C enter Colonography (combo)] Future Scheduled [address] [place] Test 00:00:00 malignant neoplasm of Medica l Center colon (procedure) [code = 849411748] Future Scheduled [address] [place] [facility] Test 00:00:00 malignant neoplasm of Medica l Center colon (procedure) [code = 914536243] Future Scheduled [address] [place] [facility] Test 00:00:00 malignant neoplasm of Medica l Center colon (procedure) [code = 320912202] Future Scheduled [address] [place] [facility] Test 00:00:00 malignant neoplasm of Medica l Center colon (procedure) [code = 628391373] Future Scheduled 1955 Sigmoidoscopy [facility]code = [facility] Test 00:00:[facility] S[facility]oidoscopy] Medical Cente r Future Scheduled [address] [facility] Test 00:00:00 (combo) [code = CT Medical C enter Colonography (combo)] Future Scheduled [address] [place] Test 00:00:00 malignant neoplasm of Medica l Center colon (procedure) [code = 934793192] Future Scheduled [address] [place] [facility] Test 00:00:00 malignant neoplasm of Medica l Center colon (procedure) [code = 757546691] Future Scheduled [address] [place] [facility] Test 00:00:00 malignant neoplasm of Medica l Center colon (procedure) [code = 029339879] Future Scheduled [address] [place] Test 00:00:00 malignant neoplasm of Medica l Center colon (procedure) [code = 810884587] Future Scheduled 1955 Sigmoidoscopy [facility]code [facility] Test 00:[facility] S[facility]oscopy] Medical Karley r Encounters Start End Encounter Admission Attending Care Care Encounter Source Date/Time Date/Time Type Type Clinicians Facility Department ID 2022-04-08 2022-04-08 Outpatient MEGAN JAVED [facility] [id number] 00:[facility]00 00[facility]00[facility]00 [facility] 2022-03-20 2022-03-20 Office MEGAN Javed [facility] [id number] 08:30:00 09:31:06 Visit [facility] 2022-02-21 2022-02-21 Outpatient MEGAN JAEVD [facility] [id number] 00:[facility]00 00:00:00 [facility] 2021-03-07 2021-03-07 Outpatient Douglas [facility] [id number] [place] 01:13:00 01:13:00 [id number] [facility] 2021-03-07 2021-03-07 Outpatient Ida Susanna [facility] [id number] 00:00:00 00:00:00 Jeremiah [id number] 2021-03-07 2021-03-07 Jeremiah [facility] [place] - [id number] [facility] 00:00:00 Rich Prieto MD: [id number] [facility] [place] [id number], [place] [address] , Ph. 2021-03-01 2021-03-01 Outpatient Goldfarb_R U [facility] [id number] [place] 03:18:00 03:18:00 [id number] [facility] U[facility] Results Test Description Test Time Test Comments Results Result Comments Source PSA 2022-03-23 20:07:00 Test Item Value Reference Range Interpretation Comme nts Prostate Specific Ag, 4.2 ng/mL 0.0-4.0 H Amanda ECLIA Serum (test code = methodolo gy.According to the 20110222) [employer], Se rum PSA shoulddecrease [...] ED (test code = ED) Performed at: [facility] [id number] Director: Iam Zarate MD, Phone: [phone] Lab Interpretation (test Abnormal code = 78491-2) [facility] + [id number] 20:07:00 Test Item Value Reference Range Interpretation Comments Testosterone, Serum 427 ng/dL [id number] Adult ma le (test code = 2986-8) referen ce interval is based on a population ofhealthy nonobese males (BMI <30) between 19 and 39 years old.Ronel et.al. JCEM 2017,102;1161-1 1 73. PMID: 97006889. Free 3.8 pg/mL 6.6-18.1 L Testosterone(Direct) (test code = 2991-8) ED (test code = ED) Performed at: 01 - [facility] [address] [id number] Director: Iam Zarate MD, Phone: [phone] ed at: 02 - [facility] [address] [id number] Director: Cassi Sarmiento MD, Phone: [phone] Lab Interpretation Abnormal (test code = 43011-7) [facility]
[2023-06-09 18:43] LABS: Albumin 3.5 g/dL (3.4-5.0); Bilirubin Direct 0.1 mg/dL (0-0.2); Bilirubin Indirect, Calculated 0.5 mg/dL (0.2-0.8); Bilirubin Total 0.6 mg/dL (0.2-1.0); Magnesium 2.4 mg/dL (1.6-2.4); Protein, Total 7.3 g/dL (6.4-8.2); Troponin High Sensitivity 27.4 pg/mL (<58.9)
--- NOTE | 2023-06-09 18:55 | EDPHYS ---
Physician Documentation [facility] Name: Mikey Seo Age: 68 yrs Sex: Male : 1955 Arrival Date: 06/09/2023 Time: 17:58 Bed 3 Private MD: Elio Saul V ED Physician Sonali Larsen HPI: 06/09 18:31 This 68 yrs old Male presents to ER via Ambulatory with complaints of Chest Pain. sp3 18:31 68-year-old male with a history of paroxysmal atrial fibrillation, diabetes, sp3 hypertension, recent cardiac stent placement approximately [address] Whitfield now presents to the ED for chief complaint chest pain that started approximately 3 PM today. He denies any other associated symptoms including jaw pain, left extremity pain, shortness of breath, back pain, abdominal pain, nausea, vomiting, diarrhea, or any other signs or symptoms on ROS at this time.. Historical: - Allergies: 18:09 Levaquin; cm10 - PMHx: 18:09 Atrial Fib; diabetes mellitus; BPH; High Cholesterol; Hypertension; cm10 - PSHx: 18:09 Coronary Angioplasty; cm10 - Immunization history:: Adult Immunizations unknown. - Social history:: Smoking status: Patient denies any tobacco usage or history of. ROS: 18:32 Constitutional: Negative for fever, chills, and weight loss, Eyes: Negative for injury, sp3 pain, redness, and discharge, ENT: Negative for injury, pain, and discharge, Neck: Negative for injury, pain, and swelling, Respiratory: Negative for shortness of breath, cough, wheezing, and pleuritic chest pain, Abdomen/GI: Negative for abdominal pain, nausea, vomiting, diarrhea, and constipation, Back: Negative for injury and pain, MS/Extremity: Negative for injury and deformity, Skin: Negative for injury, rash, and discoloration, Neuro: Negative for headache, weakness, numbness, tingling, and seizure, Psych: Negative for depression, anxiety, suicide ideation, homicidal ideation, and hallucinations, Allergy/Immunology: Negative for hives, rash, and allergies, Endocrine: Negative for neck swelling, polydipsia, polyuria, polyphagia, and marked weight changes, Hematologic/Lymphatic: Negative for swollen nodes, abnormal bleeding, and unusual bruising, 18:32 All other systems are negative, Exam: 18:32 Constitutional: This is a well developed, well nourished patient who is awake, alert, sp3 and in no acute distress. Head/Face: Normocephalic, atraumatic. Eyes: Pupils equal round and reactive to light, extra-ocular motions intact. Lids and lashes normal. Conjunctiva and sclera are non-icteric and not injected. Cornea within normal limits. Periorbital areas with no swelling, redness, or edema. Neck: Trachea midline, no thyromegaly or masses palpated, and no cervical lymphadenopathy. Supple, full range of motion without nuchal rigidity, or vertebral point tenderness. No Meningismus. Chest/axilla: Normal chest wall appearance and motion. Nontender with no deformity. No lesions are appreciated. Cardiovascular: Regular rate and rhythm with a normal S1 and S2. No gallops, murmurs, or rubs. Normal PMI, no JVD. No pulse deficits. Respiratory: Lungs have equal breath sounds bilaterally, clear to auscultation and percussion. No rales, rhonchi or wheezes noted. No increased work of breathing, no retractions or nasal flaring. Abdomen/GI: Soft, non-tender, with normal bowel sounds. No distension or tympany. No guarding or rebound. No evidence of tenderness throughout. Back: No spinal tenderness. No costovertebral tenderness. Full range of motion. Skin: Warm, dry with normal turgor. Normal color with no rashes, no lesions, and no evidence of cellulitis. MS/ Extremity: Pulses equal, no cyanosis. Neurovascular intact. Full, normal range of motion. Neuro: Awake and alert, GCS 15, oriented to person, place, time, and situation. Cranial nerves II-XII grossly intact. Motor strength 5/5 in all extremities. Sensory grossly intact. Cerebellar exam normal. Normal gait. Psych: Awake, alert, with orientation to person, place and time. Behavior, mood, and affect are within normal limits. 18:32 ECG was reviewed by the Attending Physician. EKG demonstrates normal sinus rhythm at 66 bpm with normal intervals, leftward axis, nonspecific diffuse ST/T changes without evidence of acute ischemia. Vital Signs: 18:07 BP 113 / 56; Pulse 68; Resp 16; Temp 97.8; Pulse Ox 97% on R/A; Weight 119.75 kg; cm10 Height 6 ft. 0 in. ; Pain 3/10; 18:15 BP 113 / 56; Pulse 69; Resp 13; Pulse Ox 96% on R/A; Pain 3/10; ld1 18:47 BP 124 / 57; Pulse 71; Resp 18; Pulse Ox 97% on R/A; ld1 20:43 BP 123 / 58; Pulse 64; Resp 18; Pulse Ox 99% on R/A; Pain 7/10; ha1 21:00 BP 107 / 63; Pulse 65; Resp 17 S; Pulse Ox 98% on R/A; ha1 22:00 BP 130 / 95; Pulse 59; Resp 16 S; Pulse Ox 98% on R/A; ha1 23:00 BP 122 / 65; Pulse 61; Resp 15 S; Pulse Ox 98% on R/A; ha1 18:07 Body Mass Index 35.80 (119.75 kg, 182.88 cm) cm10 18:07 Pain Scale: Adult cm10 18:15 Pain Scale: Adult ld1 20:43 Pain Scale: Adult ha1 MDM: 18:12 Patient medically screened. sp3 18:32 Data reviewed: vital signs, nurses notes, lab test result(s), EKG, radiologic studies. sp3 ED course: 68-year-old male with recurrent chest pain after recent stent placement. We will place an observation under PCP Dr. Saul and consult cardiology after following up with initial enzymes. Differential diagnosis includes angina versus acute coronary syndrome versus NSTEMI.. 18:53 ED course: Initial cardiac markers are negative. We will admit to Dr. Saul. Multiple sp3 attempts to reach him by text and phone have been unsuccessful however we will keep trying.. 06/09 18:03 Order name: Basic Metabolic Panel; Complete Time: 18:47 sp3 06/09 18:03 Order name: CBC with Diff; Complete Time: 18:30 sp3 06/09 18:03 Order name: LFT's; Complete Time: 18:47 sp3 06/09 18:03 Order name: Magnesium; Complete Time: 18:47 sp3 06/09 18:03 Order name: NT PRO-BNP; Complete Time: 18:47 sp3 06/09 18:03 Order name: PT-INR; Complete Time: 18:30 sp3 06/09 18:03 Order name: Troponin HS; Complete Time: 18:47 sp3 06/09 18:03 Order name: XRAY Chest (1 view); Complete Time: 18:30 sp3 06/09 18:03 Order name: EKG; Complete Time: 18:03 sp3 06/09 18:03 Order name: Cardiac monitoring; Complete Time: 18:05 sp3 06/09 18:03 Order name: EKG - Nurse/Tech; Complete Time: 18:14 sp3 06/09 18:03 Order name: IV Saline Lock; Complete Time: 18:15 sp3 06/09 18:03 Order name: Labs collected and sent; Complete Time: 18:15 sp3 06/09 18:03 Order name: O2 Per Protocol; Complete Time: 18:05 sp3 06/09 18:03 Order name: O2 Sat Monitoring; Complete Time: 18:05 sp3 Administered Medications: 20:47 Drug: Ondansetron IVP 4 mg IVP once; over 2 minutes Route: IVP; Site: right antecubital;ha1 20:49 Drug: morphine IVP or IV 4 mg IVP once over 4 mins Route: IVP; Infused Over: 4 mins; ha1 Site: right antecubital; Disposition Summary: 06/09/23 18:54 Hospitalization Ordered Notes: Hospitalization Status: Observation sp3 Provider: Elio Saul sp3 [facility] sp3 Condition: Stable sp3 Problem: an acute exacerbation sp3 Symptoms: have worsened sp3 Bed/Room Type: Standard sp3 Room Assignment: [facility](06/09/23 23:44) Diagnosis - Chest pain, unspecified sp3 Forms: - Medication Reconciliation Form sp3 - SBAR form sp3 - Leadership Thank You Letter sp3 Signatures: Dispatcher [employer] Jaci Caicedo RN RN Sonali Larsen MD MD sp3 Yashira Heller RN RN ha1 Bigg Cordova MD MD sp4 Janine Limon RN RN cm10 Corrections: (The following items were deleted from the chart) 23:44 18:54 sp3 cg
--- NOTE | 2023-06-09 18:55 | ER ---
Nurse's Notes [facility] Name: Mikey Seo Age: 68 yrs Sex: Male : 1955 Arrival Date: 06/09/2023 Time: 17:58 Bed 3 Private MD: Elio Saul V Diagnosis: Chest pain, unspecified Presentation: 06/09 18:07 Chief complaint: Patient states: Chest pain to the center of chest onset today at 1430. cm10 Pt states that the pain does not radiate. Pt describes the pain as an aching pain and rates the pain a 3/10. Coronavirus screen: Vaccine status: Patient reports being unvaccinated. Client denies travel out of the [place] in the last 14 days. Ebola Screen: Patient denies travel to an Ebola-affected area in the 21 days before illness onset. No symptoms or risks identified at this time. Initial Sepsis Screen: Does the patient meet any 2 criteria? No. Patient's initial sepsis screen is negative. Does the patient have a suspected source of infection? No. Patient's initial sepsis screen is negative. Risk Assessment: Do you want to hurt yourself or someone else? Patient reports no desire to harm self or others. Onset of symptoms was June 09, 2023. 18:07 Method Of Arrival: Ambulatory cm10 18:07 Acuity: EDUIN 2 cm10 Historical: - Allergies: 18:09 Levaquin; cm10 - PMHx: 18:09 Atrial Fib; diabetes mellitus; BPH; High Cholesterol; Hypertension; cm10 - PSHx: 18:09 Coronary Angioplasty; cm10 - Immunization history:: Adult Immunizations unknown. - Social history:: Smoking status: Patient denies any tobacco usage or history of. Screenin:16 [facility] ED Fall Risk Assessment (Adult) History of falling in the last 3 months, ld1 including since admission No falls in past 3 months (0 pts). Abuse screen: Denies threats or abuse. Denies injuries from another. Nutritional screening: No deficits noted. Nutritional screening: No deficits noted. Tuberculosis screening: No symptoms or risk factors identified. Assessment: 18:15 General: Appears in no apparent distress. comfortable, Behavior is calm, cooperative, ld1 appropriate for age. Pain: Complains of pain in chest Pain does not radiate. Pain currently is 7 out of 10 on a pain scale. at worst was 9 out of 10 on a pain scale. Quality of pain is described as pressure, throbbing, Pain began 4 hours ago. Is intermittent. Neuro: Level of Consciousness is awake, alert, obeys commands, Oriented to person, place, time, situation. Cardiovascular: Capillary refill < 3 seconds Patient's skin is warm and dry. Cardiovascular: Reports chest pain. Respiratory: Airway is patent Respiratory effort is even, unlabored. GI: Abdomen is round non-distended. : No signs and/or symptoms were reported regarding the genitourinary system. EENT: No signs and/or symptoms were reported regarding the EENT system. Derm: No signs and/or symptoms reported regarding the dermatologic system. Musculoskeletal: No signs and/or symptoms reported regarding the musculoskeletal system. 18:47 Reassessment: Patient appears in no apparent distress at this time. Patient and/or ld1 family updated on plan of care and expected duration. Pain level reassessed. Patient is alert, oriented x 3, equal unlabored respirations, skin warm/dry/pink. 21:00 Reassessment: Patient and/or family updated on plan of care and expected duration. Pain ha1 level reassessed. Patient is alert, oriented x 3, equal unlabored respirations, skin warm/dry/pink. 22:00 Reassessment: Patient and/or family updated on plan of care and expected duration. Pain ha1 level reassessed. Patient is alert, oriented x 3, equal unlabored respirations, skin warm/dry/pink. 23:00 Reassessment: Patient and/or family updated on plan of care and expected duration. Pain ha1 level reassessed. Patient is alert, oriented x 3, equal unlabored respirations, skin warm/dry/pink. Patient denies pain at this time. Patient states feeling better. Patient states symptoms have improved. 06/10 00:07 Reassessment: report given DANO [facility] Vital Signs: 06/09 18:07 BP 113 / 56; Pulse 68; Resp 16; Temp 97.8; Pulse Ox 97% on R/A; Weight 119.75 kg; cm10 Height 6 ft. 0 in. ; Pain 3/10; 18:15 BP 113 / 56; Pulse 69; Resp 13; Pulse Ox 96% on R/A; Pain 3/10; ld1 18:47 BP 124 / 57; Pulse 71; Resp 18; Pulse Ox 97% on R/A; ld1 20:43 BP 123 / 58; Pulse 64; Resp 18; Pulse Ox 99% on R/A; Pain 7/10; ha1 21:00 BP 107 / 63; Pulse 65; Resp 17 S; Pulse Ox 98% on R/A; ha1 22:00 BP 130 / 95; Pulse 59; Resp 16 S; Pulse Ox 98% on R/A; ha1 23:00 BP 122 / 65; Pulse 61; Resp 15 S; Pulse Ox 98% on R/A; ha1 18:07 Body Mass Index 35.80 (119.75 kg, 182.88 cm) cm10 18:07 Pain Scale: Adult cm10 18:15 Pain Scale: Adult ld1 20:43 Pain Scale: Adult ha1 ED Course: 18:01 Patient arrived in ED. mr 18:01 Elio Saul MD is Private Physician. mr 18:02 Sonali Larsen MD is Attending Physician. sp3 18:09 Triage completed. cm10 18:10 Arm band placed on Patient placed in an exam room, on a stretcher. cm10 18:15 Inserted saline lock: 20 gauge in right antecubital area, using aseptic technique. ld1 Blood collected. Missed attempt(s): 20 gauge in right antecubital area. Patient maintains SpO2 saturation greater than 95% on room air. 18:16 Patient has correct armband on for positive identification. Placed in gown. Bed in low ld1 position. Call light in reach. Side rails up X2. lottery sales clerk on. Pulse ox on. NIBP on. Door closed. Noise minimized. Warm blanket given. 18:16 No provider procedures requiring assistance completed. ld1 18:19 XRAY Chest (1 view) In Process Unspecified. EDMS 18:47 Yuki Hernández RN is Primary Nurse. ld1 18:54 Elio Saul MD is Hospitalizing Provider. sp3 Administered Medications: 20:47 Drug: Ondansetron IVP 4 mg IVP once; over 2 minutes Route: IVP; Site: right antecubital;ha1 20:49 Drug: morphine IVP or IV 4 mg IVP once over 4 mins Route: IVP; Infused Over: 4 mins; ha1 Site: right antecubital; Medication: 18:16 VIS not applicable for this client. ld1 Outcome: 18:54 Decision to Hospitalize by Provider. sp3 06/10 01:20 Patient left the ED. bp Signatures: Dispatcher [employer] EDMS Sherry Gonzalez, Reg Reg mr WaltersStephen, RN RN bp Yuki Hernández RN RN ld1 Sonali Larsen MD MD sp3 Yashira Heller RN RN ha1 Janine Limon RN RN cm10 Corrections: (The following items were deleted from the chart) 06/09 23:47 23:00 Reassessment: Patient and/or family updated on plan of care and expected ha1 duration. Pain level reassessed. Patient is alert, oriented x 3, equal unlabored respirations, skin warm/dry/pink. ha1
[2023-06-09] MEDS ORDERED: MORPHINE 4 MG/ML SYR ONE (20:57)
[2023-06-09] MEDS ORDERED: ONDANSETRON 4 MG/2 ML VIAL ONE (20:57)
[2023-06-10 01:25] VITALS: BMI 35.5
[2023-06-10 02:35] LABS: Absolute Lymphocytes (CBC) 2.4 K/uL (0.7-4.9); Lymphocytes % 30.7 % (15.3-44.8); MCV 89.3 fL (80-100); MPV 8.2 fL (7.6-11.3); Platelets 138 thou/uL (152-406); RBC Red Blood Cell Count 4.36 M/uL (4.33-5.43)
[2023-06-10 04:54] LABS: Potassium 4.2 mEq/L (3.5-5.1)
[2023-06-10 09:10] VITALS: O2SAT 96
--- NOTE | 2023-06-10 12:21 | P.CNS ---
Date of Consult: 06/10/23 Reason for Consult: chest pain Requesting Physician: Elio Saul V Primary Care Provider: Dr. Saul Chief Complaint: chest pain History of Present Illness: Mr. Seo is a [address] Saul with a PMH of HTN, HLD, NIDDM, CAD with a recent PCI of left circumflex and OM (05/27/23) who presented to the ED last pm with chest pain. Denies diaphoresis, N/V, syncope, SOB. Pt's plan of care was for staged PCI, to have RCA stent in about one month. Allergies levofloxacin [From Levaquin] Allergy (Verified 06/10/23 01:19) Hives/Rash Home medications list reviewed: Yes - Past Medical/Surgical History Diabetic: Yes -: depression -: high cholesterol -: NIDDM -: enlarged prostate -: HTN -: afib? -: left achiles tendon repair -: cardiac cath (2015) -: septal sx -: cyst between groin and buttock removed infected MRSA 2003 -: cardiac cath with PCI 05/27/23 of Left circ/om Psychosocial/ Personal History: Lives at home with his , works day shift - Family History Mother Medical History: Heart disease, Lung disease, Diabetes, Cancer Notes: Father Medical History: Cancer, Kidney disease Notes: since 2001 Brother Medical History: Heart disease - Social History Smoking Status: Current every day smoker Alcohol use: No CD- Drugs: No Caffeine use: Yes Place of Residence: Home Review of Systems 10-point ROS is otherwise unremarkable Cardiovascular: As per HPI Physical Examination Temp Pulse Resp BP Pulse Ox 96.9 F 64 16 123/77 97 06/10/23 08:00 06/10/23 08:00 06/10/23 08:00 06/10/23 08:00 06/10/23 08:00 General: Alert, In no apparent distress, Oriented x3 HEENT: Atraumatic, Normocephalic, PERRLA Neck: Supple, 2+ carotid pulse no bruit, JVD not distended Respiratory: Clear to auscultation bilaterally, Normal air movement Cardiovascular: No edema, Normal pulses, Regular rate/rhythm, Normal S1 S2 Capillary refill: <2 Seconds Gastrointestinal: Normal bowel sounds, Soft and benign Musculoskeletal: No clubbing, No swelling Integumentary: No rashes, No breakdown Neurological: Normal speech, Normal tone Lymphatics: No axilla or inguinal lymphadenopathy External genitalia: Deferred Rectal: Deferred Laboratory Data (last 24 hrs) 06/09/23 06/09/23 06/09/23 18:11 18:11 18:11 WBC 7.20 Hgb 13.8 Hct 40.9 Plt Count 153 PT 10.5 INR 0.95 Sodium 137 Potassium 4.0 BUN 18 Creatinine 1.18 Glucose 209 H Magnesium 2.4 Total Bilirubin 0.6 AST 18 ALT 30 Alkaline Phosphatase 120 H - Problems (1) HTN (hypertension) Onset Date: ~06/09/23 Current Visit: Yes Status: Acute Plan: Trend troponins x 3 (negative) Continue Metoprolol 12.5mg po BID Tamsulosin o.4mg po BID (2) Atherosclerosis of coronary artery with stable angina pectoris Current Visit: Yes Status: Acute Plan: Continue Aspirin 81mg po daily Plavix 75mg po daily Atorvastatin 40mg po daily Outpatient stress test, please call office for appointment Conclusions/Impression: Mr. Seo to continue current medication regimen, have outpatient stress test, and see me in office Thursday (please call office today to make an appointment for Thursday). Physician Review: Patient Assessed, Agree with Above Assessment and Plan Physician Review Additional Text: Cardiology signs off admission Critical Care: No Time Spent Managing Pts care (In Minutes): 45
[2023-06-10 13:02] VITALS: BP 120/71; TEMP 97.5
--- NOTE | 2023-06-10 21:19 | P.SSS ---
Patient History Date of Service: 06/10/23 Primary Care Provider: Dr. Saul Reason for admission: chest pain History of Present Illness: RHEA RECENTLY HAD CORONARY ANGIOGRAM AND STENT DONE. HE COMES WITH CHEST PAIN FOR TWO HOURS BUT HAS NO ENZYME ELEVATION. HE IS STABLE TO GO HOME. DR. LOPEZ WILL DO ST TEST. Allergies levofloxacin [From Levaquin] Allergy (Verified 06/10/23 01:19) Hives/Rash - Past Medical/Surgical History Has patient received pneumonia vaccine in the past: Yes Diabetic: Yes -: depression -: high cholesterol -: NIDDM -: enlarged prostate -: HTN -: afib? -: left achiles tendon repair -: cardiac cath (2015) -: septal sx -: cyst between groin and buttock removed infected MRSA 2003 -: cardiac cath with PCI 05/27/23 of Left circ/om Psychosocial/ Personal History: Lives at home with his , works day shift - Family History Mother -: Heart disease, Lung disease, Diabetes, Cancer Notes: Father -: Cancer, Kidney disease Notes: since 2001 Brother -: Heart disease - Social History Smoking Status: Former smoker Alcohol use: No CD- Drugs: No Caffeine use: Yes Place of Residence: Home Review of Systems 10-point ROS is otherwise unremarkable Physical Examination - Vital Signs Temperature: 97.5 F Blood Pressure: 120/71 Pulse: 69 Respirations: 16 Pulse Ox (%): 96 - Physical Exam General: Alert, In no apparent distress HEENT: Atraumatic, PERRLA, Mucous membr. moist/pink, EOMI, Sclerae nonicteric Neck: Supple, 2+ carotid pulse no bruit, No LAD, Without JVD or thyroid abnormality Respiratory: Clear to auscultation bilaterally, Normal air movement Cardiovascular: Regular rate/rhythm, Normal S1 S2 Gastrointestinal: Normal bowel sounds, No tenderness Musculoskeletal: No tenderness Integumentary: No rashes Neurological: Normal gait, Normal speech, Normal strength at 5/5 x4 extr, Normal tone, Normal affect Lymphatics: No axilla or inguinal lymphadenopathy - Diagnosis (Problem(s)) (1) Chest pain Status: Acute Plan: ABOVE. NEG ENZ STABLE. DR. LOPEZ ADVISED DC AND OUTPATIENT ST TEST. (2) Atherosclerosis of coronary artery with stable angina pectoris Status: Acute - Disposition Disposition: ROUTINE DISCHARGE Physician Review: Patient Assessed, Agree with Above Assessment and Plan
== END 2023-06-10 17:00 | disposition home or self-care (01) ==
LOC: ER 17:58 → ERHOLD 22:48 → UNDOADMOB 23:07 → ERHOLD 23:07 → 2ND 23:52
PROVIDERS: ADMIT Internal Medicine; ATTEND Internal Medicine
DX: R07.9 Chest pain, unspecified (principal); I25.119 Atherosclerotic heart disease of native coronary artery with unspecified angina pectoris; Z95.5 Presence of coronary angioplasty implant and graft; I10 Essential (primary) hypertension; E78.5 Hyperlipidemia, unspecified; Z88.1 Allergy status to other antibiotic agents; F17.210 Nicotine dependence, cigarettes, uncomplicated; Z82.49 Family history of ischemic heart disease and other diseases of the circulatory system; Z83.6 Family history of other diseases of the respiratory system; Z80.9 Family history of malignant neoplasm, unspecified; Z84.1 Family history of disorders of kidney and ureter
CPT/HCPCS: 93005; 85025 ×2; 80048 ×2; 36415; 83735; 85610; 82947 ×3; 80076; 84484 ×3; 83880; 71045; 96375; 96374; 99285; J2405; G0378 ×2

== ENCOUNTER → 2023-07-18 | Emergency (ER) | payer OTHER ==
[~2023-07-18] MED LIST: ASPIRIN 81 MG CHEWABLE TABLET ONE; HEPARIN 5000 UNIT/ML 1 ML VIAL ONE; HEPARIN/D5W 25,000 UNIT/500 ML BAG IV ONE; MORPHINE 4 MG/ML SYR ONE; NA CHLORIDE 0.9% 1,000 ML ONE; NA CHLORIDE 0.9% 500 ML ONE; ONDANSETRON 4 MG (ODT) TAB ONE
--- NOTE | 2023-07-18 13:13 | RAD REPORT ---
EXAM DESCRIPTION: RAD - Chest Single View - 07/18/2023 1:03 pm CLINICAL HISTORY: CHEST PAIN Chest pain. COMPARISON: <Comparisons> FINDINGS: Portable technique limits examination quality. The lungs are grossly clear. The heart is normal in size. No displaced fractures. IMPRESSION: No acute intrathoracic process suspected.
[2023-07-18 13:24] LABS: Protime INR 1.08
[2023-07-18 13:25] LABS: Absolute Lymphocytes (CBC) 1.8 K/uL (0.7-4.9); Hematocrit 42.1 % (39.6-49.0); Lymphocytes % 22.7 % (15.3-44.8); MCV 89.6 fL (80-100); MPV 8.5 fL (7.6-11.3); Platelets 155 thou/uL (152-406)
[2023-07-18 13:37] LABS: Albumin 3.5 g/dL (3.4-5.0); Bilirubin Direct 0.1 mg/dL (0-0.2); Bilirubin Indirect, Calculated 0.4 mg/dL (0.2-0.8); Bilirubin Total 0.5 mg/dL (0.2-1.0); Magnesium 2.1 mg/dL (1.6-2.4); Potassium 4.1 mEq/L (3.5-5.1); Protein, Total 7.4 g/dL (6.4-8.2)
--- NOTE | 2023-07-18 14:16 | EDPHYS ---
Physician Documentation [facility] Name: Mikey Seo Age: 68 yrs Sex: Male : 1955 Arrival Date: 07/18/2023 Time: 12:43 Bed 14 Private MD: ED Physician Kris Vázquez HPI: 07/18 14:10 This 68 yrs old Male presents to ER via Ambulatory with complaints of Chest luanne Pain. 14:10 The patient or guardian reports chest pain that is located primarily in the anterior luanne chest wall, bilaterally. Onset: yesterday. The pain does not radiate. Associated signs and symptoms: The patient has no apparent associated signs or symptoms. The chest pain is described as a pressure. Modifying factors: The symptoms are alleviated by NTG, X3. the symptoms are aggravated by nothing. Severity of pain: At its worst the pain was mild moderate in the emergency department the pain has improved moderately. The patient has experienced similar episodes in the past, multiple times. Historical: - Allergies: 12:54 Levaquin; hb - Home Meds: 12:54 aspirin 81 mg Oral tablet once [Active]; atorvastatin oral [Active]; calcium BID hb [Active]; Centrum Silver Oral daily [Active]; empagliflozin oral bedtime [Active]; finasteride 5 mg Oral tab 1 tab once daily [Active]; finasteride oral [Active]; Fluconazole 15 mg prn Oral [Active]; gabapentin oral at bedtime [Active]; hydrocodone-ibuprofen 10-200 mg Oral tab 2 tab TID prn [Active]; hydroxyzine HCl 25 mg Oral tab BID PRN [Active]; Lantus Sub-Q 2 times per day [Active]; metformin 1 Oral tab 1 tab 2 times per day [Active]; Metformin Oral 2 times per day [Active]; metoprolol succinate 50 mg Oral Tb24 twice a day [Active]; Metformin Oral 2 times per day [Active]; glyburide 5 mg Oral tab 1 tab once daily [Active]; Pepcid Oral [Active]; Pepcid 20 mg Oral tab 1 tab once daily [Active]; pioglitazone 15 mg Oral tab 1 tab once daily [Active]; sertraline 100 mg Oral tab 1 tab once daily [Active]; simvastatin 20 mg Oral tab nightly [Active]; tamsulosin 0.4 mg Oral capsule twice a day [Active]; testosterone 200 mg IM Q2 wks [Active]; varenicline oral 2 times per day [Active]; varenicline oral 2 times per day [Active]; Oxybutynin Chloride Oral [Active]; sertraline oral [Active]; zolpidem 10 mg Oral tab nightly [Active]; - PMHx: 12:54 Atrial Fib; BPH; diabetes mellitus; High Cholesterol; Hypertension; hb - PSHx: 12:54 Coronary Angioplasty; hb - Immunization history:: Adult Immunizations up to date. - Social history:: Smoking status: Patient denies any tobacco usage or history of. - Family history:: not pertinent. ROS: 14:10 Constitutional: Negative for fever, chills, and weight loss, Eyes: Negative for injury, luanne pain, redness, and discharge, ENT: Negative for injury, pain, and discharge, Neck: Negative for injury, pain, and swelling, Respiratory: Negative for shortness of breath, cough, wheezing, and pleuritic chest pain, Abdomen/GI: Negative for abdominal pain, nausea, vomiting, diarrhea, and constipation, Back: Negative for injury and pain, : Negative for injury, bleeding, discharge, and swelling, MS/Extremity: Negative for injury and deformity, Skin: Negative for injury, rash, and discoloration, Neuro: Negative for headache, weakness, numbness, tingling, and seizure, Psych: Negative for depression, anxiety, suicide ideation, homicidal ideation, and hallucinations, Allergy/Immunology: Negative for hives, rash, and allergies, Endocrine: Negative for neck swelling, polydipsia, polyuria, polyphagia, and marked weight changes, Hematologic/Lymphatic: Negative for swollen nodes, abnormal bleeding, and unusual bruising, 14:10 Cardiovascular: Positive for chest pain, Exam: 14:10 Constitutional: This is a well developed, well nourished patient who is awake, alert, luanne and in no acute distress. Head/Face: Normocephalic, atraumatic. Eyes: Pupils equal round and reactive to light, extra-ocular motions intact. Lids and lashes normal. Conjunctiva and sclera are non-icteric and not injected. Cornea within normal limits. Periorbital areas with no swelling, redness, or edema. ENT: Nares patent. No nasal discharge, no septal abnormalities noted. Tympanic membranes are normal and external auditory canals are clear. Oropharynx with no redness, swelling, or masses, exudates, or evidence of obstruction, uvula midline. Mucous membranes moist. Neck: Trachea midline, no thyromegaly or masses palpated, and no cervical lymphadenopathy. Supple, full range of motion without nuchal rigidity, or vertebral point tenderness. No Meningismus. Chest/axilla: Normal chest wall appearance and motion. Nontender with no deformity. No lesions are appreciated. Cardiovascular: Regular rate and rhythm with a normal S1 and S2. No gallops, murmurs, or rubs. Normal PMI, no JVD. No pulse deficits. Respiratory: Lungs have equal breath sounds bilaterally, clear to auscultation and percussion. No rales, rhonchi or wheezes noted. No increased work of breathing, no retractions or nasal flaring. Abdomen/GI: Soft, non-tender, with normal bowel sounds. No distension or tympany. No guarding or rebound. No evidence of tenderness throughout. Back: No spinal tenderness. No costovertebral tenderness. Full range of motion. Male : Normal genitalia with no discharge or lesions. Skin: Warm, dry with normal turgor. Normal color with no rashes, no lesions, and no evidence of cellulitis. MS/ Extremity: Pulses equal, no cyanosis. Neurovascular intact. Full, normal range of motion. Neuro: Awake and alert, GCS 15, oriented to person, place, time, and situation. Cranial nerves II-XII grossly intact. Motor strength 5/5 in all extremities. Sensory grossly intact. Cerebellar exam normal. Normal gait. Psych: Awake, alert, with orientation to person, place and time. Behavior, mood, and affect are within normal limits. 14:10 ECG was reviewed by the Attending Physician. Vital Signs: 12:58 BP 126 / 80; Pulse 78; Resp 16; Temp 98.5(O); Pulse Ox 98% on R/A; Weight 117.93 kg; hb Height 6 ft. 0 in. ; Pain 2/10; 14:04 BP 126 / 63; Pulse 70; Resp 14 S; Pulse Ox 100% on R/A; kc6 15:29 BP 155 / 94; Pulse 62; Resp 17 S; Pulse Ox 97% on R/A; kc6 12:58 Body Mass Index 35.26 (117.93 kg, 182.88 cm) hb 12:58 Pain Scale: Adult hb MDM: 12:50 Patient medically screened. luanne 14:12 Differential diagnosis: abnormal EKG, acute myocardial infarction, acute pericarditis, luanne anxiety, coronary artery disease chest wall pain, congestive heart failure Cholelithiasis costochondritis, mitral valve prolapse, pancreatitis, peptic ulcer disease, pericarditis, pneumonia, pulmonary embolus, stable angina, thoracic aortic disection, unstable angina. HEART Score: History: Moderately Suspicious (1), ECG: Non specific repolarization disturbance / LBTB / PM (1), Age: > or = 65 years (2), Risk Factors: > or = 3 Risk factors for atherosclerotic disease (2), [Hypercholesterolemia] [Hypertension] [DM] [+ Family HX] [Obesity] Troponin: > 1 and < 3 x normal limit (1). The patient was given aspirin in the Emergency Department. KENNY Risk Score: 1 - patient's age is greater or equal to 65 years, 1 - Three or more CAD risk factors, 1- Known CAD, 1 - ASA use in past 7 days, 1 - Recent [<24hrs] Severe Angina, 1 - Elevated Cardiac Markers, TOTAL SCORE = 6. Data reviewed: vital signs, nurses notes, lab test result(s), EKG, radiologic studies, plain films. Consideration of Admission/Observation Escalation of care including admission/observation considered. I considered the following discharge prescriptions or medication management in the emergency department Medications were administered in the Emergency Department. See MAR. Independent interpretation of the following test(s) in the Emergency Department EKG: See my EKG interpretation above. Test considered but Not performed: CT: no ct chest. Historians other than the Patient: Spouse/Significant Other: well informed. Care significantly affected by the following chronic conditions: Diabetes, Hypertension, Obesity, a fib. 07/18 12:51 Order name: Basic Metabolic Panel; Complete Time: 14: [facility] 07/18 12:51 Order name: CBC with Diff; Complete Time: 14: [facility] 07/18 12:51 Order name: LFT's; Complete Time: 14:06 07/18 12:51 Order name: Magnesium; Complete Time: 14: [facility] 07/18 12:51 Order name: NT PRO-BNP; Complete Time: 14: [facility] 07/18 12:51 Order name: PT-INR [facility] 07/18 12:51 Order name: Troponin HS; Complete Time: 14:06 [facility] 07/18 12:51 Order name: Lipase; Complete Time: 14:06 [facility] 07/18 14:37 Order name: PTT, Activated Partial Thromb EDMS 07/18 12:51 Order name: XRAY Chest (1 view); Complete Time: 14:06 [facility] 07/18 12:51 Order name: EKG; Complete Time: 12:51 [facility] 07/18 12:51 Order name: Cardiac monitoring; Complete Time: 12:54 [facility] 07/18 12:51 Order name: EKG - Nurse/Tech; Complete Time: 12:54 [facility] 07/18 12:51 Order name: IV Saline Lock; Complete Time: 12:54 [facility] 07/18 12:51 Order name: Labs collected and sent; Complete Time: 12:54 [facility] 07/18 12:51 Order name: O2 Per Protocol; Complete Time: 12:54 [facility] 07/18 12:51 Order name: O2 Sat Monitoring; Complete Time: 12:54 [facility] EC:10 Rate is 75 beats/min. QRS [place] is Normal. RI interval is normal. QRS interval is luanne normal. QT interval is normal. No Q waves. T waves are Normal. No ST changes noted. Clinical impression: NSR w/ Non-specific ST/T Changes. Interpreted by me. Reviewed by me. Administered Medications: 13:05 Drug: Aspirin PO Chewable Tablet 81 mg PO once Route: PO; kc6 15:29 Follow up: Response: No adverse reaction [facility] 13:05 Drug: NS 0.9% IV 500 ml IV at bolus once Route: IV; Rate: bolus; Site: right kc6 antecubital; 15:29 Follow up: Response: No adverse reaction; IV Status: Completed infusion; IV Intake: kc6 500ml 14:38 Drug: Heparin (TN-Bolus No thrombolytic) - HEParin IVP 60 units/kg IVP once; Max 5000 kc6 units {Co-Signature: me1 (Penny Urban RN).} Route: IVP; Site: right antecubital; 15:30 Follow up: Response: No adverse reaction kc6 14:38 Drug: Heparin (TN Drip) 12 units/kg/hr - ([place] [address] units, D5W IV 500 ml) IV at kc6 calculated rate Per protocol; Max initial rate 1000 units/hr {Co-Signature: me1 (Penny Urban RN).} Route: IV; Rate: calculated rate; Site: right antecubital; 16:50 Follow up: Response: No adverse reaction; IV Status: Infusion continued upon transfer; [facility] IV Intake: 500ml 14:41 Drug: NS 0.9% IV 1000 ml IV at 125 ml/hr continuous Route: IV; Rate: 125 ml/hr; Site: [facility] right antecubital; 16:50 Follow up: Response: No adverse reaction; IV Status: Infusion continued upon transfer; [facility] IV Intake: 1000ml 14:41 Drug: morphine IVP or IV 4 mg IVP once over 4 mins Route: IVP; Infused Over: 4 mins; [facility] Site: right antecubital; 15:30 Follow up: Response: No adverse reaction; Pain is decreased; RASS: Alert and Calm (0) [facility] 14:41 Drug: Ondansetron Oral Disintegrating Tablet Oral Disintegrating Tablet 8 mg PO once; kc6 may repeat once in 8-12 hours Route: PO; 15:30 Follow up: Response: No adverse reaction [facility] Disposition Summary: 07/18/23 14:16 Transfer Ordered Notes: Transfer Location: [facility] luanne Reason: Higher level of care luanne Condition: Fair luanne Problem: new luanne Symptoms: have improved luanne Accepting Physician: DR. DELVALLE / ALBERTA(07/18/23 16:48) hb Diagnosis - Chest pain, unspecified luanne - Unstable angina luanne - Non ST elevation TN luanne - Essential (primary) hypertension luanne - Type 2 diabetes mellitus with hyperglycemia luanne Forms: - Medication Reconciliation Form luanne - SBAR form luanne Signatures: Dispatcher [employer] EDKris Gonzalez MD MD cha Baxter, Heather RN RN Cheyanne Neil Kaitlyn, RN RN [facility] Penny Urban RN me1 Corrections: (The following items were deleted from the chart) 14:37 14:10 PTT, ACTIVATED+[email or web address].BRZ ordered. [facility] EDMS 16:29 14:16 to [facility] eb 16:48 16:29 DR. DELVALLE / ALBERTA eb hb
--- NOTE | 2023-07-18 14:16 | ER ---
Nurse's Notes [facility] Name: Mikey Seo Age: 68 yrs Sex: Male : 1955 Arrival Date: 07/18/2023 Time: 12:43 Bed 14 Private MD: Diagnosis: Chest pain, unspecified;Unstable angina;Non ST elevation FL;Essential (primary) hypertension;Type 2 diabetes mellitus with hyperglycemia Presentation: 07/18 12:58 Chief complaint: Intermittent midsternal chest pain and dizziness since this morning. 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 Had brief relief after each dose. Hx of FL with stent placement. Sees Nahid Braxton. Coronavirus screen: At this time, the client does not indicate any symptoms associated with coronavirus-19. Ebola Screen: No symptoms or risks identified at this time. Initial Sepsis Screen: Does the patient meet any 2 criteria? No. Patient's initial sepsis screen is negative. Does the patient have a suspected source of infection? No. Patient's initial sepsis screen is negative. Risk Assessment: Do you want to hurt yourself or someone else? Patient reports no desire to harm self or others. Onset of symptoms was July 18, 2023. 12:58 Method Of Arrival: Ambulatory hb 12:58 Acuity: EDUIN 2 hb Historical: - Allergies: 12:54 Levaquin; hb - Home Meds: 12:54 aspirin 81 mg Oral tablet once [Active]; atorvastatin oral [Active]; calcium BID hb [Active]; Centrum Silver Oral daily [Active]; empagliflozin oral bedtime [Active]; finasteride 5 mg Oral tab 1 tab once daily [Active]; finasteride oral [Active]; Fluconazole 15 mg prn Oral [Active]; gabapentin oral at bedtime [Active]; hydrocodone-ibuprofen 10-200 mg Oral tab 2 tab TID prn [Active]; hydroxyzine HCl 25 mg Oral tab BID PRN [Active]; Lantus Sub-Q 2 times per day [Active]; metformin 1 Oral tab 1 tab 2 times per day [Active]; Metformin Oral 2 times per day [Active]; metoprolol succinate 50 mg Oral Tb24 twice a day [Active]; Metformin Oral 2 times per day [Active]; glyburide 5 mg Oral tab 1 tab once daily [Active]; Pepcid Oral [Active]; Pepcid 20 mg Oral tab 1 tab once daily [Active]; pioglitazone 15 mg Oral tab 1 tab once daily [Active]; sertraline 100 mg Oral tab 1 tab once daily [Active]; simvastatin 20 mg Oral tab nightly [Active]; tamsulosin 0.4 mg Oral capsule twice a day [Active]; testosterone 200 mg IM Q2 wks [Active]; varenicline oral 2 times per day [Active]; varenicline oral 2 times per day [Active]; Oxybutynin Chloride Oral [Active]; sertraline oral [Active]; zolpidem 10 mg Oral tab nightly [Active]; - PMHx: 12:54 Atrial Fib; BPH; diabetes mellitus; High Cholesterol; Hypertension; hb - PSHx: 12:54 Coronary Angioplasty; hb - Immunization history:: Adult Immunizations up to date. - Social history:: Smoking status: Patient denies any tobacco usage or history of. - Family history:: not pertinent. Screenin:55 [facility] ED Fall Risk Assessment (Adult) History of falling in the last 3 months, kc6 including since admission No falls in past 3 months (0 pts) Confusion or Disorientation No (0 pts) Intoxicated or Sedated No (0 pts) Impaired Gait No (0 pts) Mobility Assist Device Used No (0 pt) Altered Elimination No (0 pt) Score/Fall Risk Level 0 - 2 = Low Risk. Abuse screen: Denies threats or abuse. Denies injuries from another. Nutritional screening: No deficits noted. Tuberculosis screening: No symptoms or risk factors identified. Assessment: 13:00 General: Appears in no apparent distress. comfortable, well groomed, well developed, kc6 Behavior is calm, cooperative, appropriate for age. Pain: Complains of pain in chest Pain does not radiate. Neuro: Level of Consciousness is awake, alert, obeys commands, Oriented to person, place, time, situation, Appropriate for age. Cardiovascular: Reports chest pain, Heart tones S1 S2 present Capillary refill < 3 seconds Rhythm is sinus rhythm. Respiratory: Airway is patent Trachea midline Respiratory effort is even, unlabored, Respiratory pattern is regular, symmetrical. GI: No signs and/or symptoms were reported involving the gastrointestinal system. : No signs and/or symptoms were reported regarding the genitourinary system. EENT: No signs and/or symptoms were reported regarding the EENT system. Derm: No signs and/or symptoms reported regarding the dermatologic system. Skin is intact, is healthy with good turgor, Skin is pink, warm \T\ dry. Musculoskeletal: No signs and/or symptoms reported regarding the musculoskeletal system. Circulation, motion, and sensation intact. Capillary refill < 3 seconds, Range of motion: intact in all extremities. 14:03 Reassessment: Patient appears in no apparent distress at this time. No changes from kc6 previously documented assessment. Patient and/or family updated on plan of care and expected duration. Pain level reassessed. Patient is alert, oriented x 3, equal unlabored respirations, skin warm/dry/pink. 15:29 Reassessment: Patient appears in no apparent distress at this time. No changes from kc6 previously documented assessment. Patient and/or family updated on plan of care and expected duration. Pain level reassessed. Patient is alert, oriented x 3, equal unlabored respirations, skin warm/dry/pink. 15:47 Reassessment: pt reports taking his usual dose of aspirin and plavix this AM [employer] SALES REPRESENTATIVE. kc6 16:49 Reassessment: Patient appears in no apparent distress at this time. No changes from kc6 previously documented assessment. Patient and/or family updated on plan of care and expected duration. Pain level reassessed. Patient is alert, oriented x 3, equal unlabored respirations, skin warm/dry/pink. Vital Signs: 12:58 BP 126 / 80; Pulse 78; Resp 16; Temp 98.5(O); Pulse Ox 98% on R/A; Weight 117.93 kg; hb Height 6 ft. 0 in. ; Pain 2/10; 14:04 BP 126 / 63; Pulse 70; Resp 14 S; Pulse Ox 100% on R/A; kc6 15:29 BP 155 / 94; Pulse 62; Resp 17 S; Pulse Ox 97% on R/A; kc6 12:58 Body Mass Index 35.26 (117.93 kg, 182.88 cm) hb 12:58 Pain Scale: Adult hb ED Course: 12:46 Patient arrived in ED. ts1 12:50 Kris Vázquez MD is Attending Physician. luanne 12:54 Lian Hill RN is Primary Nurse. kc6 12:54 Inserted saline lock: 20 gauge in right antecubital area, using aseptic technique. kc6 Blood collected. Patient maintains SpO2 saturation greater than 95% on room air. 12:55 Patient has correct armband on for positive identification. Bed in low position. Call kc6 light in reach. Side rails up X 1. Adult w/ patient. Client placed on continuous cardiac and pulse oximetry monitoring. NIBP monitoring applied. classroom monitor on. 13:02 Triage completed. hb 13:04 XRAY Chest (1 view) In Process Unspecified. EDMS 14:11 initiated a transfer with Rachel from the [place] transfer center at the request of the eb patient. 15:[address] Carranza the physician internal audit consultant for the DC with Dr. Vázquez for patient eb transfer consultation. 16:49 No provider procedures requiring assistance completed. Patient transferred, IV remains kc6 in place. Administered Medications: 13:05 Drug: Aspirin PO Chewable Tablet 81 mg PO once Route: PO; kc6 15:29 Follow up: Response: No adverse reaction kc6 13:05 Drug: NS 0.9% IV 500 ml IV at bolus once Route: IV; Rate: bolus; Site: right kc6 antecubital; 15:29 Follow up: Response: No adverse reaction; IV Status: Completed infusion; IV Intake: kc6 500ml 14:38 Drug: Heparin (FL-Bolus No thrombolytic) - HEParin IVP 60 units/kg IVP once; Max 5000 kc6 units {Co-Signature: will (Penny Urban RN).} Route: IVP; Site: right antecubital; 15:30 Follow up: Response: No adverse reaction kc6 14:38 Drug: Heparin (FL Drip) 12 units/kg/[place] - ([place] [address] units, D5W IV 500 ml) IV at kc6 calculated rate Per protocol; Max initial rate 1000 units/hr {Co-Signature: me1 (Penny Urban RN).} Route: IV; Rate: calculated rate; Site: right antecubital; 16:50 Follow up: Response: No adverse reaction; IV Status: Infusion continued upon transfer; kc6 IV Intake: 500ml 14:41 Drug: NS 0.9% IV 1000 ml IV at 125 ml/hr continuous Route: IV; Rate: 125 ml/hr; Site: kc right antecubital; 16:50 Follow up: Response: No adverse reaction; IV Status: Infusion continued upon transfer; kc6 IV Intake: 1000ml 14:41 Drug: morphine IVP or IV 4 mg IVP once over 4 mins Route: IVP; Infused Over: 4 mins; kc6 Site: right antecubital; 15:30 Follow up: Response: No adverse reaction; Pain is decreased; RASS: Alert and Calm (0) kc6 14:41 Drug: Ondansetron Oral Disintegrating Tablet Oral Disintegrating Tablet 8 mg PO once; kc6 may repeat once in 8-12 hours Route: PO; 15:30 Follow up: Response: No adverse reaction kc6 Medication: 16:50 VIS not applicable for this client. kc6 Intake: 15:29 IV: 500ml; Total: 500ml. kc6 16:50 IV: 500ml; Total: 1000ml. kc6 16:50 IV: 1000ml; Total: 2000ml. kc6 Outcome: 14:16 ER care complete, transfer ordered by MD. stroud 16:48 Patient left the ED. 16:49 Transferred by ground EMS to [facility] Transfer form completed. [facility] Note: report called to DANO Belle 16:49 Condition: stable 16:49 Instructed on the need for transfer, Signatures: Dispatcher [employer] Kris Hutrado MD MD cha Baxter, Heather, RN RN Cheyanne Neil Kaitlyn RN RN kc6 Connie Gasca PAS PAS ts1 Penny Urban RN me1
[2023-07-18 18:14] VITALS: BP 155/94; TEMP 98.5; O2SAT 97
--- NOTE | 2023-07-20 17:04 | EKG ---
Test Date: 2023-07-18 Test Time: 12:50:37 Four Slide Operator: RAEGAN MEASUREMENT RESULTS: Intervals: Rate: 75 KS: 172 QRSD: 100 QT: 388 QTc: 433 [place]: P: 65 KS: 172 QRS: -67 T: 11 INTERPRETIVE STATEMENTS: Sinus rhythm with premature atrial complexes Left anterior fascicular block Possible Lateral infarct, age undetermined Abnormal ECG Compared to ECG 06/09/2023 18:07:15 Atrial premature complex(es) now present Myocardial infarct finding now present Sinus arrhythmia no longer present Electronically Signed On 07-20-23 16:58:38 SAWMILL HAND by Joseph Whitfield
== END ==
LOC: ER 12:43
DX: I21.4 Non-ST elevation (NSTEMI) myocardial infarction (principal); I20.0 Unstable angina; I10 Essential (primary) hypertension; E11.65 Type 2 diabetes mellitus with hyperglycemia; I48.91 Unspecified atrial fibrillation; Z79.82 Long term (current) use of aspirin; Z79.4 Long term (current) use of insulin; Z88.1 Allergy status to other antibiotic agents
CPT/HCPCS: 96365; 96361; 93005; 85025; 80048; 36415; 83735; 85610; 80076; 85730; 84484; 83690; 83880; 71045; 96375; 99285; 96366; J1644; Q0162; J7040; J7030

== ENCOUNTER 2023-11-02 14:20 | Observation (INO) | payer OTHER ==
[2023-11-02] MEDS ORDERED: ONDANSETRON 4 MG/2 ML VIAL ONE (14:46)
[2023-11-02] MEDS ORDERED: MORPHINE 2 MG/ML SYR ONE (14:46)
[2023-11-02] MEDS ORDERED: ASPIRIN 81 MG CHEWABLE TABLET ONE (14:46)
[2023-11-02] MEDS ORDERED: FAMOTIDINE 20 MG/2 ML VIAL IV ONE (14:46)
[2023-11-02 15:11] LABS: Albumin 3.6 g/dL (3.4-5.0); Anion Gap 7.2 mEq/L (5.0-15.0); Bilirubin Direct 0.1 mg/dL (0-0.2); Bilirubin Indirect, Calculated 0.5 mg/dL (0.2-0.8); Bilirubin Total 0.6 mg/dL (0.2-1.0); Globulin 3.5 g/dL (2.3-3.5); Magnesium 2.1 mg/dL (1.6-2.4); Potassium 4.2 mEq/L (3.5-5.1); Protein, Total 7.1 g/dL (6.4-8.2); Troponin High Sensitivity 8.5 pg/mL (<58.9)
[2023-11-02 15:13] LABS: Specific Gravity > 1.030 (1.005-1.030); Sqamous Epithelial None Seen /HPF (None Seen); Urine Bacteria None Seen /HPF (<20); Urine Bilirubin NEGATIVE (Negative); Urine Blood Negative (Negative); Urine Clarity Clear (Clear); Urine Color Light-Yellow (Yellow); Urine Culture Reflex Order NOT NEEDED; Urine Glucose 4+ (Over) (Negative); Urine Ketones NEGATIVE (Negative); Urine Microscopic Reflex YN ORDER UMIC; Urine Nitrite NEGATIVE (Negative); Urine Protein NEGATIVE (Negative); Urine RBC <5 /HPF (None Seen); Urine Urobilinogen Normal (Normal); Urine WBC <5 /HPF (<5)
[2023-11-02 15:23] LABS: Absolute Eosinophils 0.2 K/uL (0-0.5); Absolute Monocytes 0.5 K/uL (0.1-1.3); Absolute Neutrophil 3.6 K/uL (1.8-8.0); Basophils % 0.6 % (0-1.3); Eosinophils % 2.8 % (0-4.4); Hematocrit 39.4 % (39.6-49.0); Lymphocytes % 31.5 % (15.3-44.8); MCHC 32.9 g/dL (32.0-36.0); MCV 90.9 fL (80-100); MPV 8.9 fL (7.6-11.3); Monocytes % 8.3 % (3.3-12.3); Neutrophils % 56.8 % (41.7-73.7); PT Prothrombin Time 11.5 SECONDS (9.5-12.5); Platelets 147 thou/uL (152-406); Protime INR 1.05; RBC Red Blood Cell Count 4.33 M/uL (4.33-5.43); Red Cell Distribution Width 15.2 % (12.1-15.2)
--- NOTE | 2023-11-02 15:47 | EDPHYS ---
Physician Documentation [facility] Name: Mikey Seo Age: 68 yrs Sex: Male : 1955 Arrival Date: 11/02/2023 Time: 14:20 Bed 5 Private MD: ED Physician Kris Vázquez HPI: 11/01 15:48 This 68 yrs old Male presents to ER via Ambulatory with complaints of Chest luanne Pain. Historical: - Allergies: 14:38 Levaquin; iw - Home Meds: 14:39 metformin 1,000 mg Oral Tablet, Extended Release 24 hr daily [Active]; calcium iw carbonate 600 mg calcium (1,500 mg) Oral tablet daily [Active]; gabapentin 300 mg oral capsule daily [Active]; empagliflozin 25 mg oral tablet daily [Active]; Pepcid 40 mg Oral tablet daily [Active]; aspirin 81 mg Oral capsule daily [Active]; atorvastatin 80 mg oral tablet daily [Active]; isosorbide mononitrate 30 mg Oral Tablet, Extended Release 24 hr daily [Active]; Plavix 75 mg Oral tablet daily [Active]; ranolazine 500 mg oral Tablet, Extended Release 12 hr daily [Active]; carvedilol 12.5 mg oral tablet daily [Active]; sertraline 100 mg oral tablet daily [Active]; sertraline 50 mg oral tablet nightly [Active]; losartan 25 mg oral tablet daily [Active]; Ozempic 0.25 mg or 0.5 mg (2 mg/3 mL) subcutaneous Pen Injector every week [Active]; Lantus U-100 Insulin 100 unit/mL Sub-Q solution 25 units every evening [Active]; - PMHx: 14:38 Atrial Fib; Hypertension; High Cholesterol; BPH; diabetes mellitus; iw - PSHx: 14:38 Coronary Angioplasty; iw - Immunization history:: Adult Immunizations up to date. - Infectious Disease History:: Denies. - Social history:: Smoking status: Patient/guardian denies using tobacco, the patient reports quitting approximately 1 years ago. ROS: 15:49 Constitutional: Negative for fever, chills, and weight loss, Eyes: Negative for injury, luanne pain, redness, and discharge, ENT: Negative for injury, pain, and discharge, Neck: Negative for injury, pain, and swelling, Respiratory: Negative for shortness of breath, cough, wheezing, and pleuritic chest pain, Abdomen/GI: Negative for abdominal pain, nausea, vomiting, diarrhea, and constipation, Back: Negative for injury and pain, : Negative for injury, bleeding, discharge, and swelling, MS/Extremity: Negative for injury and deformity, Skin: Negative for injury, rash, and discoloration, Neuro: Negative for headache, weakness, numbness, tingling, and seizure, Psych: Negative for depression, anxiety, suicide ideation, homicidal ideation, and hallucinations, Allergy/Immunology: Negative for hives, rash, and allergies, Endocrine: Negative for neck swelling, polydipsia, polyuria, polyphagia, and marked weight changes, Hematologic/Lymphatic: Negative for swollen nodes, abnormal bleeding, and unusual bruising, 15:49 Cardiovascular: Positive for chest pain, Exam: 15:49 Constitutional: This is a well developed, well nourished patient who is awake, alert, luanne and in no acute distress. Head/Face: Normocephalic, atraumatic. Eyes: Pupils equal round and reactive to light, extra-ocular motions intact. Lids and lashes normal. Conjunctiva and sclera are non-icteric and not injected. Cornea within normal limits. Periorbital areas with no swelling, redness, or edema. ENT: Nares patent. No nasal discharge, no septal abnormalities noted. Tympanic membranes are normal and external auditory canals are clear. Oropharynx with no redness, swelling, or masses, exudates, or evidence of obstruction, uvula midline. Mucous membranes moist. Neck: Trachea midline, no thyromegaly or masses palpated, and no cervical lymphadenopathy. Supple, full range of motion without nuchal rigidity, or vertebral point tenderness. No Meningismus. Chest/axilla: Normal chest wall appearance and motion. Nontender with no deformity. No lesions are appreciated. Cardiovascular: Regular rate and rhythm with a normal S1 and S2. No gallops, murmurs, or rubs. Normal PMI, no JVD. No pulse deficits. Respiratory: Lungs have equal breath sounds bilaterally, clear to auscultation and percussion. No rales, rhonchi or wheezes noted. No increased work of breathing, no retractions or nasal flaring. Abdomen/GI: Soft, non-tender, with normal bowel sounds. No distension or tympany. No guarding or rebound. No evidence of tenderness throughout. Back: No spinal tenderness. No costovertebral tenderness. Full range of motion. Male : Normal genitalia with no discharge or lesions. Skin: Warm, dry with normal turgor. Normal color with no rashes, no lesions, and no evidence of cellulitis. MS/ Extremity: Pulses equal, no cyanosis. Neurovascular intact. Full, normal range of motion. Neuro: Awake and alert, GCS 15, oriented to person, place, time, and situation. Cranial nerves II-XII grossly intact. Motor strength 5/5 in all extremities. Sensory grossly intact. Cerebellar exam normal. Normal gait. Psych: Awake, alert, with orientation to person, place and time. Behavior, mood, and affect are within normal limits. Vital Signs: 14:37 BP 100 / 72; Pulse 71; Resp 16; Temp 98.1; Pulse Ox 97% on R/A; Weight 115.67 kg; iw Height 6 ft. 0 in. ; 15:21 BP 127 / 66; Pulse 61; Resp 16 S; Pulse Ox 100% on R/A; kc6 17:07 BP 119 / 83; Pulse 69; Resp 18 S; Pulse Ox 100% on R/A; kc6 18:17 BP 125 / 56; Pulse 65; Resp 16 S; Pulse Ox 99% on R/A; kc6 14:37 Body Mass Index 34.58 (115.67 kg, 182.88 cm) iw MDM: 14:24 Patient medically screened. luanne 14:24 Patient medically screened. luanne 15:52 Differential diagnosis: abnormal EKG, acute myocardial infarction, acute pericarditis, luanne coronary artery disease chest wall pain, congestive heart failure Cholelithiasis costochondritis, esophagitis, gastritis, hiatal hernia, mitral valve prolapse, pancreatitis, peptic ulcer disease, pneumonia, pulmonary embolus, stable angina, thoracic aortic disection, unstable angina. HEART Score: History: Moderately Suspicious (1), ECG: Non specific repolarization disturbance / LBTB / PM (1), Age: > or = 65 years (2), Risk Factors: > or = 3 Risk factors for atherosclerotic disease (2), [Hypercholesterolemia] [Hypertension] [DM] [+ Family HX] [Obesity] Troponin: < or = 1 x Normal Limit (0). The patient was given aspirin in the Emergency Department. KENNY Risk Score: 1 - patient's age is greater or equal to 65 years, 1 - Three or more CAD risk factors, 1- Known CAD, 1 - ASA use in past 7 days, 1 - Recent [<24hrs] Severe Angina, TOTAL SCORE = 5. Data reviewed: vital signs, nurses notes, lab test result(s), EKG, radiologic studies, plain films. Consideration of Admission/Observation Escalation of care including admission/observation considered. I considered the following discharge prescriptions or medication management in the emergency department Medications were administered in the Emergency Department. See MAR. Independent interpretation of the following test(s) in the Emergency Department EKG: See my EKG interpretation above. Test considered but Not performed: CT: no ct chest. 11/01 14:26 Order name: Basic Metabolic Panel; Complete Time: 15:35 11/01 14:26 Order name: CBC with Diff; Complete Time: 15:35 11/01 14:26 Order name: LFT's; Complete Time: 15:35 11/01 14:26 Order name: Magnesium; Complete Time: 15:35 11/01 14:26 Order name: NT PRO-BNP; Complete Time: 15:35 11/01 14:26 Order name: PT-INR; Complete Time: 15:35 11/01 14:26 Order name: Troponin HS; Complete Time: 15:35 11/01 14:26 Order name: Lipase; Complete Time: 15:35 11/01 14:26 Order name: Urinalysis w/ reflexes; Complete Time: 15:35 11/01 15:50 Order name: Ptt, Activated kc6 11/01 17:49 Order name: Troponin High Sensitivity EDMS 11/01 17:49 Order name: Troponin High Sensitivity EDMS 11/01 17:49 Order name: Troponin High Sensitivity EDMS 11/01 14:26 Order name: XRAY Chest (1 view) 11/01 14:26 Order name: Cardiac monitoring; Complete Time: 14:39 11/01 14:26 Order name: EKG - Nurse/Tech; Complete Time: 14:40 11/01 14:26 Order name: IV Saline Lock; Complete Time: 14:39 11/01 14:26 Order name: Labs collected and sent; Complete Time: 14:39 11/01 14:26 Order name: O2 Per Protocol; Complete Time: 14:39 luanne 11/01 14:26 Order name: O2 Sat Monitoring; Complete Time: 14:39 luanne Administered Medications: 14:52 Drug: Aspirin PO Chewable Tablet 324 mg PO once; 81 mg tablets x 4 Route: PO; kc6 17:07 Follow up: Response: No adverse reaction kc6 14:52 Drug: Famotidine IVP 20 mg IVP once; dilute with 10 mL 0.9% NaCl; give over 2 minutes kc6 Route: IVP; Site: left antecubital; 17:08 Follow up: Response: No adverse reaction kc6 14:52 Drug: morphine IVP or IV 2 mg IVP once over 4 mins Route: IVP; Infused Over: 4 mins; kc6 Site: left antecubital; 17:08 Follow up: Response: No adverse reaction; Pain is unchanged, physician notified; RASS: kc6 Alert and Calm (0) 14:52 Drug: Ondansetron IVP 2 mg IVP once; over 2 minutes Route: IVP; Site: left antecubital; 6 17:08 Follow up: Response: No adverse reaction kc6 16:28 Drug: Heparin ([place]-Bolus No thrombolytic) - HEParin IVP 60 units/kg IVP once; Max 5000 kc6 units {Co-Signature: tr (Taryn Nixon RN).} Route: IVP; Site: left antecubital; 17:08 Follow up: Response: No adverse reaction kc6 16:28 Drug: Heparin ([place] Drip) 12 units/kg/[place] - ([place] [address] units, D5W IV 500 ml) IV at kc6 calculated rate Per protocol; Max initial rate 1000 units/hr {Co-Signature: ph (Taryn Nixon RN).} Route: IV; Rate: calculated rate; Site: left antecubital; 18:15 Follow up: Response: No adverse reaction; IV Status: Infusion continued upon admission; kc6 IV Intake: 500ml Disposition: 15:52 Critical Care:. luanne Disposition Summary: 11/02/23 16:41 Hospitalization Ordered Notes: Hospitalization Status: Inpatient Admission luanne Provider: Marshall Shafer cha Location: Telemetry/MedSurg (observation) luanne Condition: Fair(11/02/23 16:41) luanne Problem: new(11/02/23 16:41) luanne Symptoms: have improved(11/02/23 16:41) luanne Bed/Room Type: Standard luanne Room Assignment: 215(11/02/23 17:53) bd Diagnosis - Chest pain, unspecified(11/02/23 16:41) luanne - Unstable angina(11/02/23 16:41) luanne - Essential (primary) hypertension(11/02/23 16:41) luanne - Type 2 diabetes mellitus with hyperglycemia(11/02/23 16:41) luanne Forms: - Medication Reconciliation Form luanne - SBAR form luanne - Leadership Thank You Letter luanne Critical care time excluding procedures: 15:52 Critical care time: Bedside Care: 20 minutes, Consultation: 10 minutes, Family luanne Intervention: 5 minutes. Total time: 35 minutes Signatures: Dispatcher [employer] EDMS Chari Arias Corey, MD MD cha Williams, Irene RN DANO iw Lian Hill RN RN kc Taryn Nixon RN ph Corrections: (The following items were deleted from the chart) 14:27 14:27 BASIC METABOLIC PANEL+C.LAB.BRZ ordered. EDMS EDMS 14:27 14:27 CBC+H.LAB.BRZ ordered. EDMS EDMS 14:27 14:27 HEPATIC FUNCTION+C.LAB.BRZ ordered. EDMS EDMS 14:27 14:27 MAGNESIUM+C.LAB.BRZ ordered. EDMS EDMS 14:27 14:27 PROBNP+C.LAB.BRZ ordered. EDMS EDMS 14:27 14:27 PROTIME (+INR)+COAG.LAB.BRZ ordered. EDMS EDMS 14:27 14:27 Troponin High Sensitivity+C.LAB.BRZ ordered. EDMS EDMS 14:27 14:27 LIPASE+C.LAB.BRZ ordered. EDMS EDMS 14:27 14:27 Urinalysis+U.LAB.BRZ ordered. EDMS EDMS 15:54 15:46 [facility] luanne 16:37 15:46 Other Acute Care Facility luanne luanne 16:37 15:46 Higher level of care luanne luanne 16:37 15:46 Fair luanne luanne 16:37 15:46 new luanne luanne 16:37 15:46 have improved luanne luanne 16:37 15:46 Chest pain, unspecified luanne luanne 16:37 15:46 Unstable angina luanne luanne 16:37 15:54 to [facility] luanne luanne 16:37 15:54 Type 2 diabetes mellitus with hyperglycemia luanne luanne 16:37 15:54 Essential (primary) hypertension luanne luanne 17:53 16:41 luanne bd
--- NOTE | 2023-11-02 15:47 | ER ---
Nurse's Notes [facility] Name: Mikey Seo Age: 68 yrs Sex: Male : 1955 Arrival Date: 11/02/2023 Time: 14:20 Bed 5 Private MD: Diagnosis: Chest pain, unspecified;Unstable angina;Essential (primary) hypertension;Type 2 diabetes mellitus with hyperglycemia Presentation: 11/01 14:37 Chief complaint: Patient states: chest pains on and off since July, worse today, is iw [facility]. Coronavirus screen: At this time, the client does not indicate any symptoms associated with coronavirus-19. Ebola Screen: Patient negative for fever greater than or equal to 101.5 degrees Fahrenheit, and additional compatible Ebola Virus Disease symptoms Patient denies exposure to infectious person. Patient denies travel to an Ebola-affected area in the 21 days before illness onset. No symptoms or risks identified at this time. Initial Sepsis Screen: Does the patient meet any 2 criteria? No. Patient's initial sepsis screen is negative. Does the patient have a suspected source of infection? No. Patient's initial sepsis screen is negative. Risk Assessment: Do you want to hurt yourself or someone else? Patient reports no desire to harm self or others. Onset of symptoms was November 02, 2023. 14:37 Method Of Arrival: Ambulatory 14:37 Acuity: EDUIN 3 iw Historical: - Allergies: 14:38 Levaquin; iw - Home Meds: 14:39 metformin 1,000 mg Oral Tablet, Extended Release 24 hr daily [Active]; calcium iw carbonate 600 mg calcium (1,500 mg) Oral tablet daily [Active]; gabapentin 300 mg oral capsule daily [Active]; empagliflozin 25 mg oral tablet daily [Active]; Pepcid 40 mg Oral tablet daily [Active]; aspirin 81 mg Oral capsule daily [Active]; atorvastatin 80 mg oral tablet daily [Active]; isosorbide mononitrate 30 mg Oral Tablet, Extended Release 24 hr daily [Active]; Plavix 75 mg Oral tablet daily [Active]; ranolazine 500 mg oral Tablet, Extended Release 12 hr daily [Active]; carvedilol 12.5 mg oral tablet daily [Active]; sertraline 100 mg oral tablet daily [Active]; sertraline 50 mg oral tablet nightly [Active]; losartan 25 mg oral tablet daily [Active]; Ozempic 0.25 mg or 0.5 mg (2 mg/3 mL) subcutaneous Pen Injector every week [Active]; Lantus U-100 Insulin 100 unit/mL Sub-Q solution 25 units every evening [Active]; - PMHx: 14:38 Atrial Fib; Hypertension; High Cholesterol; BPH; diabetes mellitus; iw - PSHx: 14:38 Coronary Angioplasty; iw - Immunization history:: Adult Immunizations up to date. - Infectious Disease History:: Denies. - Social history:: Smoking status: Patient/guardian denies using tobacco, the patient reports quitting approximately 1 years ago. Screenin:45 [facility] ED Fall Risk Assessment (Adult) History of falling in the last 3 months, kc6 including since admission No falls in past 3 months (0 pts) Confusion or Disorientation No (0 pts) Intoxicated or Sedated No (0 pts) Impaired Gait No (0 pts) Mobility Assist Device Used No (0 pt) Altered Elimination No (0 pt) Score/Fall Risk Level 0 - 2 = Low Risk. Abuse screen: Denies threats or abuse. Denies injuries from another. Nutritional screening: No deficits noted. Tuberculosis screening: No symptoms or risk factors identified. Assessment: 14:45 General: Appears in no apparent distress. comfortable, well groomed, well developed, kc6 Behavior is calm, cooperative, appropriate for age. Pain: Complains of pain in mid-sternal area Pain does not radiate. Pain began 2-3 days ago. Neuro: Level of Consciousness is awake, alert, obeys commands, Oriented to person, place, time, situation, Appropriate for age. Cardiovascular: Reports chest pain, Heart tones S1 S2 present Capillary refill < 3 seconds. Respiratory: Airway is patent Trachea midline Respiratory effort is even, unlabored, Respiratory pattern is regular, symmetrical. GI: No signs and/or symptoms were reported involving the gastrointestinal system. : No signs and/or symptoms were reported regarding the genitourinary system. EENT: No signs and/or symptoms were reported regarding the EENT system. Derm: No signs and/or symptoms reported regarding the dermatologic system. Skin is intact, is healthy with good turgor, Skin is pink, warm \T\ dry. Musculoskeletal: No signs and/or symptoms reported regarding the musculoskeletal system. Circulation, motion, and sensation intact. Capillary refill < 3 seconds, Range of motion: intact in all extremities. 15:45 Reassessment: Patient appears in no apparent distress at this time. No changes from kc6 previously documented assessment. Patient and/or family updated on plan of care and expected duration. Pain level reassessed. Patient is alert, oriented x 3, equal unlabored respirations, skin warm/dry/pink. 16:45 Reassessment: Patient appears in no apparent distress at this time. No changes from kc6 previously documented assessment. Patient and/or family updated on plan of care and expected duration. Pain level reassessed. Patient is alert, oriented x 3, equal unlabored respirations, skin warm/dry/pink. 18:17 Reassessment: Patient appears in no apparent distress at this time. No changes from kc6 previously documented assessment. Patient and/or family updated on plan of care and expected duration. Pain level reassessed. Patient is alert, oriented x 3, equal unlabored respirations, skin warm/dry/pink. Vital Signs: 14:37 BP 100 / 72; Pulse 71; Resp 16; Temp 98.1; Pulse Ox 97% on R/A; Weight 115.67 kg; iw Height 6 ft. 0 in. ; 15:21 BP 127 / 66; Pulse 61; Resp 16 S; Pulse Ox 100% on R/A; kc6 17:07 BP 119 / 83; Pulse 69; Resp 18 S; Pulse Ox 100% on R/A; kc6 18:17 BP 125 / 56; Pulse 65; Resp 16 S; Pulse Ox 99% on R/A; kc6 14:37 Body Mass Index 34.58 (115.67 kg, 182.88 cm) ED Course: 14:21 Patient arrived in ED. rg4 14:24 Kris Vázquez MD is Attending Physician. luanne 14:38 Triage completed. iw 14:39 Arm band placed on. iw 14:40 Basic Metabolic Panel Sent. bc6 14:40 CBC with Diff Sent. bc6 14:40 LFT's Sent. bc6 14:40 Magnesium Sent. bc6 14:40 NT PRO-BNP Sent. bc6 14:40 PT-INR Sent. bc6 14:40 Troponin HS Sent. bc6 14:40 Initial lab(s) drawn, by me, sent to lab. Inserted saline lock: 20 gauge in left bc6 antecubital area, using aseptic technique. Blood collected. 14:45 Patient has correct armband on for positive identification. Bed in low position. Call kc6 light in reach. Side rails up X 1. Adult w/ patient. Client placed on continuous cardiac and pulse oximetry monitoring. NIBP monitoring applied. monitoring analyst on. 14:52 Lian Hill, RN is Primary Nurse. kc6 15:04 XRAY Chest (1 view) In Process Unspecified. EDMS 16:25 initiated transfer to OR, pt denied due to being on saturation,per Ron. bd 16:28 Ptt, Activated Sent. kc6 16:40 Marshall Shafer MD is Hospitalizing Provider. luanne Administered Medications: 14:52 Drug: Aspirin PO Chewable Tablet 324 mg PO once; 81 mg tablets x 4 Route: PO; kc6 17:07 Follow up: Response: No adverse reaction kc6 14:52 Drug: Famotidine IVP 20 mg IVP once; dilute with 10 mL 0.9% NaCl; give over 2 minutes kc6 Route: IVP; Site: left antecubital; 17:08 Follow up: Response: No adverse reaction kc6 14:52 Drug: morphine IVP or IV 2 mg IVP once over 4 mins Route: IVP; Infused Over: 4 mins; kc6 Site: left antecubital; 17:08 Follow up: Response: No adverse reaction; Pain is unchanged, physician notified; RASS: kc6 Alert and Calm (0) 14:52 Drug: Ondansetron IVP 2 mg IVP once; over 2 minutes Route: IVP; Site: left antecubital; kc6 17:08 Follow up: Response: No adverse reaction kc6 16:28 Drug: Heparin ([place]-Bolus No thrombolytic) - HEParin IVP 60 units/kg IVP once; Max 5000 kc6 units {Co-Signature: ph (Taryn Nixon RN).} Route: IVP; Site: left antecubital; 17:08 Follow up: Response: No adverse reaction kc6 16:28 Drug: Heparin ([place] Drip) 12 units/kg/[place] - ([place] [address] units, D5W IV 500 ml) IV at kc6 calculated rate Per protocol; Max initial rate 1000 units/hr {Co-Signature: ph (Taryn Nixon RN).} Route: IV; Rate: calculated rate; Site: left antecubital; 18:15 Follow up: Response: No adverse reaction; IV Status: Infusion continued upon admission; kc6 IV Intake: 500ml Intake: 18:15 IV: 500ml; Total: 500ml. kc6 Outcome: 15:46 ER care complete, transfer ordered by MD. luanne 16:41 Decision to Hospitalize by Provider. luanne 18:24 Patient left the ED. kc6 Signatures: Dispatcher [employer] EDMS Chari Arias Corey, MD MD cha Williams, Irene RN Bettina Norris4 Lian Hill RN RN kc6 Ese Craig 6 Taryn Nixon RN, ph
[2023-11-02] MEDS ORDERED: HEPARIN/D5W 25,000 UNIT/500 ML BAG IV ONE (16:17)
[2023-11-02] MEDS ORDERED: HEPARIN 5000 UNIT/ML 1 ML VIAL ONE (16:17)
--- NOTE | 2023-11-02 16:34 | RAD REPORT ---
EXAM DESCRIPTION: RADChest Single View11/02/2023 3:02 pm CLINICAL HISTORY: CHEST PAIN COMPARISON: Chest Single View dated 07/18/2023; Chest Single View dated 06/09/2023; Chest Single View dated 05/26/2023; Chest Pa And Lat (2 Views) dated 05/15/2022 TECHNIQUE: Portable AP view of the chest. FINDINGS: The lungs are clear. No pneumothorax or effusion. The cardiomediastinal contours are unre markable. IMPRESSION: No acute cardiopulmonary process.
--- NOTE | 2023-11-02 17:57 | P.HP ---
Date of Service: 11/02/23 68-year-old male with a past medical history of hypertension, diabetes, hyperlipidemia, CAD s/p stent placement x 2 in June 2024 who presented to the ED with complaints of chest pain described as "pushing on the back of my heart." He reports this chest pain that began 2 days prior to arrival (10/30) and was not relieved with nitroglycerin. He denies associated symptoms. Today he rated the pain as 6-8 out of 10 which prompted him to present to the ED. Troponin 8.5, BNP 751. Chest x-ray negative for acute cardiopulmonary process. He was given aspirin, morphine, heparin, Pepcid in ED and was started on heparin drip. Plan to admit for chest pain, unstable angina. Of note the patient had an angiogram in July at the [facility] during which she was told he needed a bypass. He has been following up with his [place] doctor and reportedly was to have bypass in December 2023. An attempt to transfer to the [facility] was made, no beds available at this time.
--- NOTE | 2023-11-02 18:30 | P.HP ---
Certification for Inpatient Patient admitted to: Observation Practitioner: I am a practitioner with admitting privileges, knowledge of patient current condition, hospital course, and medical plan of care. Services: Services provided to patient in accordance with Admission requirements found in Title 42 Section 412.3 of the Code of Federal Regulations Patient History Date of Service: 11/02/23 Reason for admission: chest pain History of Present Illness: 68-year-old male with a past medical history of hypertension, diabetes, hyperlipidemia, CAD s/p stent placement x 2 in June 2024 who presented to the ED with complaints of chest pain described as "pushing on the back of my heart." He reports this chest pain that began 2 days prior to arrival (10/30) and was not relieved with nitroglycerin. He denies associated symptoms. Today he rated the pain as 6-8 out of 10 which prompted him to present to the ED. Troponin 8.5, BNP 751. Chest x-ray negative for acute cardiopulmonary process. EKG without ST elevation he was given aspirin, morphine, heparin, Pepcid in ED and was started on heparin drip. Plan to admit for chest pain, unstable angina. Of note the patient had chest pain in July 2023 for which she had an angiogram [facility] during which she was told he needed a bypass. He has been following up with his [place] doctor and reportedly was to have bypass in December 2023. An attempt to transfer to the [facility] was made, no beds available at this time. Allergies levofloxacin [From Levaquin] Allergy (Verified 06/10/23 01:19) Hives/Rash Home medications list reviewed: Yes - Past Medical/Surgical History Diabetic: Yes -: depression -: high cholesterol -: NIDDM -: BPH -: HTN -: CAD s/p PCI 05/2023 -: left achiles tendon repair -: cardiac cath (2015) -: septal sx -: cyst between groin and buttock removed infected MRSA 2003 -: cardiac cath with PCI 05/27/23 of Left circ/om Psychosocial/ Personal History: Lives at home with his , works day shift - Family History Mother -: Heart disease, Lung disease, Diabetes, Cancer Notes: Father -: Cancer, Kidney disease Notes: since 2001 Brother -: Heart disease - Social History Smoking Status: Former smoker Alcohol use: No CD- Drugs: No Caffeine use: Yes Review of Systems 10-point ROS is otherwise unremarkable Cardiovascular: Chest Pain Physical Examination - Physical Exam General: Alert, In no apparent distress, Oriented x3 HEENT: Atraumatic, Normocephalic Neck: Supple Respiratory: Clear to auscultation bilaterally, Normal air movement Cardiovascular: No edema, Regular rate/rhythm, Irregular heart rate/rhythm Gastrointestinal: Normal bowel sounds, Soft and benign Integumentary: No rashes - Studies Laboratory Data (last 24 hrs) 11/02/23 11/02/23 11/02/23 16:25 14:35 14:35 WBC 6.40 Hgb 13.0 L Hct 39.4 L Plt Count 147 L PT 11.5 INR 1.05 APTT 35.3 Sodium Potassium BUN Creatinine Glucose Magnesium Total Bilirubin AST ALT Alkaline Phosphatase Lipase 11/02/23 14:35 WBC Hgb Hct Plt Count PT INR APTT Sodium 138 Potassium 4.2 BUN 28 H Creatinine 1.37 H Glucose 182 H Magnesium 2.1 Total Bilirubin 0.6 AST 16 ALT 34 Alkaline Phosphatase 86 Lipase 42 Assessment and Plan - Plan Problem list Chest pain unstable angina Hypertension Hyperlipidemia CAD s/p PCI (07/2022) Hqf-elwmibr-ntlhagdsu diabetes mellitus BPH Unstable angina -Patient was given aspirin morphine heparin bolus in the ED. patient took nitroglycerin at home without improvement in chest pain. -Initial troponin negative 8.5, trend troponins q6h -EKG daily -Started on heparin drip in ED, continue per protocol -As needed pain medication, supplemental oxygen as needed -Consult cardiology; appreciate recommendations Hypertension Hyperlipidemia -Currently hypotensive, hold BP med - statin Xsw-hxohyxp-qvgyqojxd diabetes mellitus -Hold home oral antidiabetic agents while inpatient -Accu-Cheks ACHS. Insulin per sliding scale. -Patient reports recent A1c of 6.2 VTE: On heparin drip Full code Dispo: 1 to 2 days - Advance Directives Does patient have a Living Will: No Does patient have a Durable POA for Healthcare: No Time Spent Managing Pts Care (In Minutes): 45
[2023-11-02] MEDS: HEPARIN/D5W 25,000 UNITS/500 ML BAG IV PRN (20:17)
[2023-11-02] MEDS: INSULIN REGULAR (HUMAN) 100 UNIT/ML SQ SCH (21:00)
[2023-11-02 23:08] VITALS: BMI 35.1
[2023-11-03 03:27] LABS: Absolute Basophils 0.1 K/uL (0-0.5); Absolute Eosinophils 0.3 K/uL (0-0.5); Absolute Lymphocytes (CBC) 2.2 K/uL (0.7-4.9); Absolute Monocytes 0.6 K/uL (0.1-1.3); Absolute Neutrophil 4.2 K/uL (1.8-8.0); Basophils % 0.7 % (0-1.3); Eosinophils % 3.6 % (0-4.4); Hematocrit 40.2 % (39.6-49.0); Hemoglobin 13.4 g/dL (13.6-17.9); MCH 30.4 pg (27.0-35.0); MCHC 33.4 g/dL (32.0-36.0); MCV 91.1 fL (80-100); MPV 8.8 fL (7.6-11.3); Monocytes % 7.8 % (3.3-12.3); Neutrophils % 57.9 % (41.7-73.7); Platelets 136 thou/uL (152-406); RBC Red Blood Cell Count 4.41 M/uL (4.33-5.43); Red Cell Distribution Width 14.5 % (12.1-15.2)
[2023-11-03 03:43] LABS: Albumin 3.5 g/dL (3.4-5.0); Albumin/Globulin Ratio 1.1 (1.1-1.8); Anion Gap 6.1 mEq/L (5.0-15.0); Bilirubin Total 0.4 mg/dL (0.2-1.0); Globulin 3.3 g/dL (2.3-3.5); Phosphorus 3.4 mg/dL (2.5-4.9); Potassium 4.1 mEq/L (3.5-5.1); Protein, Total 6.8 g/dL (6.4-8.2)
[2023-11-03] MEDS: MORPHINE 4 MG/ML SYR ONE (06:38)
[2023-11-03] MEDS: MORPHINE 4 MG/ML SYR IV ONE (06:40)
--- NOTE | 2023-11-03 07:12 | P.PN ---
Date of Service: 11/03/23 Subjective: In no apparent distress. No major changes or acute events overnight. + Chest pain on exertion Denies any new or worsening complaints at this time. ROS: 10-point ROS is otherwise unremarkable Physical Examination Temp Pulse Resp BP Pulse Ox 97.2 F 60 16 134/62 97 11/03/23 04:00 11/03/23 04:00 11/03/23 04:00 11/03/23 04:00 11/03/23 04:00 General: Alert, In no apparent distress, Oriented x3 HEENT: Atraumatic, Normocephalic. neck supple. Respiratory: Clear to auscultation bilaterally, Normal air movement Cardiovascular: No edema, Regular rate/rhythm, Irregular heart rate/rhythm Gastrointestinal: Normal bowel sounds, Soft and benign Integumentary: No rashes Assessment and Plan Problem list Chest pain unstable angina Hypertension Hyperlipidemia CAD s/p PCI (07/2022) Zrg-dypzpvu-zjmoenmsu diabetes mellitus BPH Unstable angina -Patient was given aspirin morphine heparin bolus in the ED. patient took nitroglycerin at home without improvement in chest pain. -Initial troponin negative 8.5, trend troponins q6h -EKG daily -Started on heparin drip in ED, continue per protocol -As needed pain medication, supplemental oxygen as needed -Consult cardiology; appreciate recommendations Hypertension Hyperlipidemia -Currently hypotensive, hold BP med - statin Upd-ogffeki-bczxtdrhn diabetes mellitus -Hold home oral antidiabetic agents while inpatient -Accu-Cheks ACHS. Insulin per sliding scale. -Patient reports recent A1c of 6.2 VTE: On heparin drip Full code Dispo: 1 to 2 days
[2023-11-03] MEDS: CLOPIDOGREL 75 MG TABLET PO SCH (09:20)
[2023-11-03 09:48] VITALS: O2SAT 96
--- NOTE | 2023-11-03 12:13 | P.CNS ---
Date of Consult: 11/03/23 Chief Complaint: chest pain History of Present Illness: Patient with known PMH of CAD with multiple PCIs, last done in june that was followed [facility], found to have multivessel CAD, plan was for CABG around december due to recent stent placement, presented with worsening angina that has been going on for 1 week, no other cardiac symptoms. Allergies levofloxacin [From Levaquin] Allergy (Verified 06/10/23 01:19) Hives/Rash - Past Medical/Surgical History Diabetic: Yes -: depression -: high cholesterol -: NIDDM -: BPH -: HTN -: CAD s/p PCI 05/2023 -: left achiles tendon repair -: cardiac cath (2015) -: septal sx -: cyst between groin and buttock removed infected MRSA 2003 -: cardiac cath with PCI 05/27/23 of Left circ/om Psychosocial/ Personal History: Lives at home with his , works day shift - Family History Mother Medical History: Heart disease, Lung disease, Diabetes, Cancer Notes: Father Medical History: Cancer, Kidney disease Notes: since 2001 Brother Medical History: Heart disease - Social History Smoking Status: Current every day smoker Alcohol use: No CD- Drugs: No Caffeine use: Yes Place of Residence: Home Review of Systems 10-point ROS is otherwise unremarkable Physical Examination Temp Pulse Resp BP Pulse Ox 97.1 F 57 16 162/73 H 96 11/03/23 08:00 11/03/23 08:00 11/03/23 08:00 11/03/23 08:00 11/03/23 08:00 General: Alert, Oriented x3 HEENT: Atraumatic Neck: Supple Respiratory: Clear to auscultation bilaterally Cardiovascular: No edema, Normal S1 S2 Gastrointestinal: Normal bowel sounds Laboratory Data (last 24 hrs) 11/02/23 11/02/23 11/02/23 16:25 14:35 14:35 WBC 6.40 Hgb 13.0 L Hct 39.4 L Plt Count 147 L PT 11.5 INR 1.05 APTT 35.3 Sodium Potassium BUN Creatinine Glucose Magnesium Total Bilirubin AST ALT Alkaline Phosphatase Lipase 11/02/23 14:35 WBC Hgb Hct Plt Count PT INR APTT Sodium 138 Potassium 4.2 BUN 28 H Creatinine 1.37 H Glucose 182 H Magnesium 2.1 Total Bilirubin 0.6 AST 16 ALT 34 Alkaline Phosphatase 86 Lipase 42 - Problems (1) HLD (hyperlipidemia) Current Visit: Yes Status: Acute Plan: Continue Lipitor 80 mg daily (2) Atherosclerosis of coronary artery with stable angina pectoris Current Visit: No Status: Acute Plan: Patient known to have multivessel CAD and scheduled for CABG at the [place] Cardiac enzymes are negative x3 Increase Ranexa to 1000 mg po BID Increase Imdur to 60 mg daily Continue Coreg 12.5 mg po BID Continue Plavix 75 mg daily Continue to follow up with the [place] [facility] (patient got a follow up with dress marker on thursday). (3) HTN (hypertension) Onset Date: ~06/09/23 Current Visit: No Status: Acute Plan: as above. patient can be discharged from cardiology stand point after medications adjusement as above.
[2023-11-03 12:34] VITALS: BP 136/61; TEMP 97
--- NOTE | 2023-11-03 14:31 | P.DS ---
Admission Date: 11/02/23 Discharge Date: 11/03/23 Disposition: ROUTINE DISCHARGE Discharge Condition: GOOD Reason for Admission: chest pain Brief History of Present Illness: 68-year-old male with a past medical history of hypertension, diabetes, hyperlipidemia, CAD s/p stent placement x 2 in June 2024 who presented to the ED with complaints of chest pain described as "pushing on the back of my heart." He reports this chest pain that began 2 days prior to arrival (10/30) and was not relieved with nitroglycerin. He denies associated symptoms. Today he rated the pain as 6-8 out of 10 which prompted him to present to the ED. T roponin 8.5, BNP 751. Chest x-ray negative for acute cardiopulmonary process. EKG without ST elevation he was given aspirin, morphine, heparin, Pepcid in ED and was started on heparin drip. An attempt to transfer to the [facility] was made, no beds available at this time. Plan to admit for chest pain, unstable angina. Cardiology consulted. Of note the patient had chest pain in July 2023 for which she had an angiogram [facility] during which she was told he needed a bypass. He has been following up with his [place] doctor and reportedly was to have bypass in December 2023. Hospital Course: Problem list Chest pain, Stable angina Hyperlipidemia Hypertension Yxd-mwjrvse-ssavblfon diabetes mellitus CAD s/p PCI 05/2023 Presented with chest pain not relieved with nitroglycerin. Patient reported having angiogram 07/2023 during which she was told he needed a CABG, to be done in December/January. He was started on heparin drip in the ED which was continued for [address] elevation. Troponins negative x 3. Chest pain improved, not continuous and only reported on exertion. Cardiology was consulted, recommended increase in dosage of patient's home Ranexa and Imdur. Patient OK to discharge home from cardiology standpoint and continue to follow- up with the [facility]. Medications: - Increase Ranexa to 1000 mg p.o. twice daily - Increase Imdur to 60 mg daily - continue coreg 12.5 mg po BID - continue plavix 75 mg po daily Follow ups: Continue to follow-up with the [facility]. Patient has follow-up with [facility] on Thursday11/09/2023. Physical Exam General: Alert, In no apparent distress, Oriented x3 HEENT: Atraumatic, Normocephalic. neck supple. Respiratory: Clear to auscultation bilaterally, Normal air movement Cardiovascular: No edema, Regular rate/rhythm. normal pulses. Gastrointestinal: Normal bowel sounds, Soft and benign Integumentary: No rashes. Skin warm and dry. Vital Signs/Physical Exam: Temp Pulse Resp BP Pulse Ox 97.0 F 68 14 136/61 95 11/03/23 12:00 11/03/23 12:00 11/03/23 12:00 11/03/23 12:00 11/03/23 12:00 Laboratory Data at Discharge: WBC 7.20 thou/uL (4.3-10.9) 11/03/23 02:51 Hgb 13.4 g/dL (13.6-17.9) L 11/03/23 02:51 Hct 40.2 % (39.6-49.0) 11/03/23 02:51 Plt Count 136 thou/uL (152-406) L 11/03/23 02:51 PT 11.5 SECONDS (9.5-12.5) 11/02/23 14:35 INR 1.05 11/02/23 14:35 APTT Cancelled 11/03/23 15:00 Sodium 138 mEq/L (136-145) 11/03/23 02:51 Potassium 4.1 mEq/L (3.5-5.1) 11/03/23 02:51 BUN 21 mg/dL (7-18) H 11/03/23 02:51 Creatinine 1.13 mg/dL (0.70-1.30) 11/03/23 02:51 Glucose 117 mg/dL (74-106) H 11/03/23 02:51 Phosphorus 3.4 mg/dL (2.5-4.9) 11/03/23 02:51 Magnesium 2.0 mg/dL (1.6-2.4) 11/03/23 02:51 Total Bilirubin 0.4 mg/dL (0.2-1.0) 11/03/23 02:51 AST 16 U/L (15-37) 11/03/23 02:51 ALT 31 U/L (16-61) 11/03/23 02:51 Alkaline Phosphatase 65 U/L (45-117) D 11/03/23 02:51 Triglycerides 79 mg/dL (<150) 11/03/23 02:57 Cholesterol 81 mg/dL (<200) 11/03/23 02:57 HDL Cholesterol 41 mg/dL (40-60) 11/03/23 02:57 Cholesterol/HDL Ratio 1.98 11/03/23 02:57 Lipase 42 U/L (13-75) 11/02/23 14:35 Home Medications: Clopidogrel Bisulfate [Plavix*] 75 mg PO DAILY #30 tab 11/03/23 Isosorbide Mononitrate [Isosorbide Mononitrate ER] 60 mg PO DAILY #30 tab 11/03/23 Ranolazine [Ranolazine ER] 1,000 mg PO BID #60 tab 11/03/23 carvediloL [Coreg] 12.5 mg PO BID #60 tab 11/03/23 New Medications: carvediloL [Coreg] 12.5 mg PO BID #60 tab Isosorbide Mononitrate [Isosorbide Mononitrate ER] 60 mg PO DAILY #30 tab Clopidogrel Bisulfate [Plavix*] 75 mg PO DAILY #30 tab Ranolazine [Ranolazine ER] 1,000 mg PO BID #60 tab Physician Discharge Instructions: Presented with chest pain not relieved with nitroglycerin. Patient reported having angiogram 07/2023 during which she was told he needed a CABG, to be done in December/January. He was started on heparin drip in the ED which was continued for [address] elevation. Troponins negative x 3. Cardiology was consulted, recommended increase in dosage of patient's home Ranexa and Imdur. Patient OK to discharge home from cardiology standpoint and continue to follow- up [facility] the [facility]. Medications: - Increase Ranexa to 1000 mg p.o. twice daily - Increase Imdur to 60 mg daily - Continue coreg 12.5 mg po BID - Contine plavix 75mg daily - Continue other home medications as previously prescribed. Follow ups: Continue [place] [facility]. Patient has follow-up with [facility] on Thursday11/09/2023. Diet: AHA Activity: Ad chago Followup: Joseph Whitfield MD [ACTIVE - CAN ADMIT] - [facility] [Primary Care Provider] - (go to your Thursday apointment) Time spent managing pt's care (in minutes): 55
--- NOTE | 2023-11-03 14:45 | EKG ---
Test Date: 2023-11-02 Test Time: 14:29:57 Security And Privacy Consultant: LIANNE MEASUREMENT RESULTS: Intervals: Rate: 64 AK: 182 QRSD: 100 QT: 402 QTc: 414 [place]: P: 65 AK: 182 QRS: -55 T: 24 INTERPRETIVE STATEMENTS: Sinus rhythm with premature atrial complexes Left anterior fascicular block Abnormal ECG Compared to ECG 07/18/2023 12:50:37 Myocardial infarct finding no longer present Electronically Signed On 11-03-23 14:43:37 CDT by Joseph Whitfield
--- NOTE | 2023-11-04 13:12 | EKG ---
Test Date: 2023-11-03 Test Time: 03:25:49 Explosive Expert: JUAN MEASUREMENT RESULTS: Intervals: Rate: 59 MO: 196 QRSD: 102 QT: 420 QTc: 415 [place]: P: 66 MO: 196 QRS: -43 T: -17 INTERPRETIVE STATEMENTS: Sinus bradycardia with premature atrial complexes Left axis deviation Abnormal ECG Compared to ECG 11/02/2023 14:29:57 Left-axis deviation now present Sinus rhythm no longer present Left anterior fascicular block no longer present Electronically Signed On 11-04-23 13:07:19 CDT by Joseph Whitfield
== END 2023-11-03 15:25 | disposition home or self-care (01) ==
LOC: ER 14:20 → ERHOLD 17:35 → 2ND 18:09
PROVIDERS: ADMIT Hospitalist; ATTEND Internal Medicine
DX: R07.9 Chest pain, unspecified (principal); I25.10 Atherosclerotic heart disease of native coronary artery without angina pectoris; I10 Essential (primary) hypertension; E11.65 Type 2 diabetes mellitus with hyperglycemia; E78.5 Hyperlipidemia, unspecified; N40.0 Benign prostatic hyperplasia without lower urinary tract symptoms; Z95.5 Presence of coronary angioplasty implant and graft; Z88.1 Allergy status to other antibiotic agents
CPT/HCPCS: 93005; 85025 ×2; 81001; 80048; 36415; 83735 ×2; 84100; 85610; 80061; 82947 ×3; 80076; 85730 ×6; 84484 ×3; 83690; 80053; 83880; 71045; J1644; J2270; J2405; 96365; 96366; 96375; 99285; G0378